=== PATIENT | female | born 1955 ===

== ENCOUNTER 2019-03-02 10:32 | Inpatient (IN) | payer MEDICARE, MEDICAID ==
[2019-03-02 10:34] VITALS: BMI 29.9
--- NOTE | 2019-03-02 10:56 | C.PDOC ---
History Of Present Illness 63 year old female brought by EMS found unresponsive by aid and foaming at the mouth upon arrival. Patient lives with her mother. Patient is only responsive to pain. Patient was intubated with etomidate. EMS reports positive pulse and blood pressure at that time. EMS reports that the patient was given 2 of narcan. Patient's current O2 saturation is at 100% and blood glucose of 260. As per patient's sister, patient's PMHx includes spine problems and operation to the hip and knee. Patient is on multiple pain medications and took a sleeping pill last night, as per patient's sister. Patient's PMD is Dr. Denny Moran. Time Seen by Provider: 03/02/19 10:39 Chief Complaint (Nursing): Altered Mental Status History Per: EMS, Family (sister) History/Exam Limitations: None Onset/Duration Of Symptoms: Hrs Onset Of Symptoms: <3 Hours Current Symptoms Are (Timing): Still Present Usual Baseline: Non-responsive Exacerbating Factor(s): Unknown Past Medical History Reviewed: Historical Data, Nursing Documentation, Vital Signs - Medical History PMH: Anxiety, Back Problems, Depression Surgical History: Back Surgery (2008;2011) Family History: States: Unknown Family Hx - Social History Hx Alcohol Use: No Hx Substance Use: No - Immunization History Hx Tetanus Toxoid Vaccination: No Hx Influenza Vaccination: No Hx Pneumococcal Vaccination: No Review Of Systems Review Of Systems: ROS cannot be obtained secondary to pt's inabilty to answer questions. Physical Exam - Physical Exam Appears: Other (unresponsive, vitals stable) Skin: Normal Color, Warm, Dry Head: Atraumatic, Normacephalic Eye(s): bilateral: Other (pinpoint pupils) Throat: Other (intubated) Neck: Supple Chest: Symmetrical, No Deformity Cardiovascular: Rhythm Regular, No Murmur Respiratory: No Rales, No Rhonchi, No Wheezing, Other (ventilator in place) Gastrointestinal/Abdominal: Soft, No Tenderness, Other (obese, upper right quadrant scar) Extremity: Other (+1 pitting edema bilaterally) Pulses: Left Dorsalis Pedis: Normal, Right Dorsalis Pedis: Normal Neurological/Psych: Other (unresponsive) ED Course And Treatment - Laboratory Results Result Diagrams: 03/02/19 11:33 03/02/19 11:33 Medical Decision Making Medical Decision Making: Impression: 63 year old female brought by EMS found unresponsive by aid and foaming at the mouth upon arrival Plan: Labs ordered with CMP, CBC, and UA CXR ordered Disposition Discussed With Dr.: Quinn Reis - Disposition Disposition: HOSPITALIZED Disposition Time: 12:04 Condition: CRITICAL Forms: [facility] (Macedonian) - Clinical Impression Clinical Impression: Altered mental status, Respiratory failure - Scribe Statement The provider has reviewed the documentation as recorded by the Scribe (Bessie Brambila) All medical record entries made by the Scribe were at my direction and personally dictated by me. I have reviewed the chart and agree that the record accurately reflects my personal performance of the history, physical exam, medical decision making, and the department course for this patient. I have also personally directed, reviewed, and agree with the discharge instructions and disposition. Decision To Admit - Pt Status Changed To: Hospital Disposition Of: Inpatient - Admit Certification Admit to Inpatient:: After my assessment, the patient will require hospitalization for at least two midnights. This is because of the severity of symptoms shown, intensity of services needed, and/or the medical risk in this patient being treated as an outpatient. - InPatient: Physician Admission Certification:: critical patient - . Bed Request Type: ICU Admitting Physician: Quinn Reis Patient Diagnosis: Altered mental status, Respiratory failure
[2019-03-02 11:28] LABS: URINE BILIRUBIN NEGATIVE (NEGATIVE); URINE BLOOD NEGATIVE (NEGATIVE); URINE CLARITY Hazy (Clear); URINE COLOR Yellow (YELLOW); URINE GLUCOSE (UA) NORMAL (Normal); URINE LEUKOCYTE ESTERASE NEG Leu/uL (Negative); URINE PROTEIN NEGATIVE (NEGATIVE); URINE UROBILINOGEN NORMAL mg/dL (0.2-1.0)
[2019-03-02 11:29] LABS: HCG,QUALITATIVE URINE NEGATIVE (NEGATIVE)
[2019-03-02 11:38] LABS: BASO # 0.1 K/uL (0.0-0.2); BASO % 0.8 % (0.0-2.0); HEMOGLOBIN 8.7 g/dL (11.0-16.0); LYMPH # 0.4 K/uL (1.0-4.3); LYMPH % 2.6 % (20.0-40.0); MEAN CELL VOLUME 86.2 fL (81.0-99.0); MEAN CORPUSCULAR HEMOGLOBIN 25.9 pg (27.0-31.0); MEAN PLATELET VOLUME 9.3 fL (7.2-11.7); MONO # 1.6 K/uL (0.0-0.8); MONO % 9.6 % (0.0-10.0); NEUT # 14.4 K/uL (1.8-7.0); NRBC % 0.1 % (0.0-2.0); PLATELET COUNT 317 K/uL (130-400); RBC 3.37 Mil/uL (3.80-5.20); RED CELL DISTRIBUTION WIDTH 15.5 % (11.5-14.5); WHITE BLOOD COUNT 16.6 K/uL (4.8-10.8)
[2019-03-02] MEDS ORDERED: Sodium Chloride 0.9% 1,000 ML ONE (11:43)
[2019-03-02] MEDS ORDERED: Piperacillin/Tazobact 3.375 GM in Sodium Chloride 100 ML IVPB STA (12:02)
[2019-03-02 12:13] LABS: ALB/GLOB RATIO 1.3 (1.0-2.1); ALBUMIN 4.2 g/dL (3.5-5.0); BLOOD UREA NITROGEN 18 mg/dL (7-17); CALCIUM 9.4 mg/dl (8.6-10.4); GFR NON-AFRICAN AMERICAN 50
[2019-03-02 12:14] LABS: ACETAMINOPHEN < 10.0 ug/mL (10.0-30.0); SALICYLATE < 1.0 mg/dL 1
[2019-03-02 12:15] LABS: ALT/SGPT 29 U/L (9-52); AST/SGOT 82 U/L (14-36)
[2019-03-02 12:19] LABS: BARBITURATES, UR NEGATIVE (NEGATIVE); BENZODIAZEPINES, UR NEGATIVE (NEGATIVE); OPIATES, UR NEGATIVE (NEGATIVE); PHENCYCLIDINE, UR NEGATIVE (NEGATIVE)
[2019-03-02] MEDS ORDERED: Iodixanol 320 MG/ML 100 ML BOTTLE IV ONE (12:26)
[2019-03-02 12:36] LABS: VENOUS BLOOD GAS BASE EXCESS -6.2 mmol/L (0.0-2.0); VENOUS BLOOD GAS PCO2 90 mmHg (40-60); VENOUS BLOOD GAS PO2 20 mm/Hg (30-55); VENOUS BLOOD PH 7.07 (7.32-7.43)
[2019-03-02 12:38] LABS: LYMPHOCYTE 1 % (20-40); MONOCYTE 4 % (0-10); NEUTROPHIL 95 % (50-75); NUCLEATED RED BLOOD CELL 1 % (0-0); PLATELET ESTIMATE NORMAL (NORMAL); TOTAL CELLS COUNTED 100
[2019-03-02 12:39] LABS: ANISOCYTOSIS SLIGHT; HYPOCHROMIC SLIGHT; POLYCHROMIC SLIGHT
--- NOTE | 2019-03-02 12:44 | CP.PCM.HP ---
<Chanda Ybarra - Last Filed: 03/02/19 15:19> History of Present Illness - History of Present Illness History of Present Illness: Patient is a 63 year old female with pmhx of chronic back pain 2/2 scoliosis, depression and LE DVT admitted s/p intubation in field after being found by homemaker at home, unresponsive and foaming at the mouth. EMS called; pt initially administered 2 doses of narcan, then intubated for airway protection. Family reports pt has history of chronic back pain following spinal surgery, and per ED notes, hx of severe scoliosis. Patient brought in intubated, hypotensive in the 60s systolic. pmhx: scoliosis, depression, DVT pshx: spinal surgery? meds: eliquis, torsemide, effexor, ambien allergies: NKDA sochx: denies famhx: HTN Present on Admission - Present on Admission Any Indicators Present on Admission: Yes History of DVT/PE: Yes Review of Systems - Review of Systems Systems not reviewed;Unavailable: Intubated Past Patient History - Past Social History Smoking Status: Never Smoked - MUSCULOSKELETAL/RHEUMATOLOGICAL Hx Musculoskeletal Disorders: Yes Hx Back Pain: Yes - PSYCHIATRIC Hx Anxiety: Yes Hx Depression: Yes Hx Substance Use: No - SURGICAL HISTORY Hx Surgeries: Yes Hx Orthopedic Surgery: Yes (knee surgery) Meds Allergies/Adverse Reactions: Allergies Allergy/AdvReac Type Severity Reaction Status Date / Time No Known Allergies Allergy Verified 03/09/17 19:20 Physical Exam - Constitutional Appears: In Acute Distress Additional comments: intubated, verbally unresponsive - Head Exam Head Exam: ATRAUMATIC, NORMAL INSPECTION, NORMOCEPHALIC - Eye Exam Pupil Exam: Miosis. absent: NORMAL ACCOMODATION Additional comments: minimally responsive to light - ENT Exam ENT Exam: Normal Exam - Neck Exam Neck exam: Positive for: Normal Inspection - Respiratory Exam Respiratory Exam: Respiratory Distress Additional comments: intubated on mechanical ventilation - Cardiovascular Exam Cardiovascular Exam: REGULAR RHYTHM - GI/Abdominal Exam GI & Abdominal Exam: Soft. absent: Distended - Extremities Exam Extremities exam: Positive for: normal inspection. Negative for: pedal edema Additional comments: right femoral line - Neurological Exam Neurological exam: Abnormal Gait, Alert, Altered, CN II-XII Intact, Motor Sensory Deficit, Normal Gait, Oriented x3, Reflexes Normal - Expanded Neurological Exam Expanded Coma Scale Eye Opening: None Coma Scale Motor Response: Withdraws to Pain Coma Scale Verbal: None Coma Scale Total: 6 - Skin Skin Exam: Normal Color, Warm Additional comments: cool extremities Results - Vital Signs Recent Vital Signs: Last Vital Signs Temp 98.7 F 03/02/19 10:49 Pulse 90 03/02/19 10:49 Resp 12 03/02/19 10:49 BP 106/71 03/02/19 10:49 Pulse Ox 100 03/02/19 10:49 - Labs Result Diagrams: 03/02/19 11:33 03/02/19 11:33 Labs: Laboratory Results - last 24 hr 03/02/19 03/02/19 03/02/19 11:06 11:06 11:33 WBC 16.6 H RBC 3.37 L Hgb 8.7 L Hct 29.0 L MCV 86.2 MCH 25.9 L MCHC 30.0 L RDW 15.5 H Plt Count 317 MPV 9.3 Neut % (Auto) 87.0 H Lymph % (Auto) 2.6 L [place] % (Auto) 9.6 Eos % (Auto) 0.0 Baso % (Auto) 0.8 Neut # (Auto) 14.4 H Lymph # (Auto) 0.4 L [place] # (Auto) 1.6 H Eos # (Auto) 0.0 Baso # (Auto) 0.1 Neutrophils % (Manual) 95 H Lymphocytes % (Manual) 1 L Monocytes % (Manual) 4 Nucleated RBC % 1 H Platelet Estimate Normal Polychromasia Slight Hypochromasia (manual) Slight Anisocytosis (manual) Slight pO2 VBG pH VBG pCO2 VBG HCO3 VBG Total CO2 VBG O2 Sat (Calc) VBG Base Excess VBG Potassium Glucose Lactate Crit Value Called To Crit Value Called By Crit Value Read Back Blood Gas Notified Time Sodium Potassium Chloride Carbon Dioxide Anion Gap BUN Creatinine Est GFR ( Amer) Est GFR (Non-Af Amer) Random Glucose Calcium Phosphorus Magnesium Total Bilirubin AST ALT Alkaline Phosphatase Total Protein Albumin Globulin Albumin/Globulin Ratio Venous Blood Potassium Urine Color Yellow Urine Clarity Hazy Urine pH 5.0 Ur Specific [place] 1.011 Urine Protein Negative Urine Glucose (UA) Normal Urine Ketones Negative Urine Blood Negative Urine Nitrate Negative Urine Bilirubin Negative Urine Urobilinogen Normal Ur Leukocyte Esterase Neg Urine WBC (Auto) 1 Urine RBC (Auto) < 1 Hyaline Casts 6-10 H Urine HCG, Qual Negative Salicylates Urine Opiates Screen Negative Urine Methadone Screen Negative Acetaminophen Ur Barbiturates Screen Negative Ur Phencyclidine Scrn Negative Ur Amphetamines Screen Negative U Benzodiazepines Scrn Negative U Oth Cocaine Metabols Negative U Cannabinoids Screen Negative Alcohol, Quantitative 03/02/19 03/02/19 03/02/19 11:33 11:33 12:32 WBC RBC Hgb Hct MCV MCH MCHC RDW Plt Count MPV Neut % (Auto) Lymph % (Auto) [place] % (Auto) Eos % (Auto) Baso % (Auto) Neut # (Auto) Lymph # (Auto) [place] # (Auto) Eos # (Auto) Baso # (Auto) Neutrophils % (Manual) Lymphocytes % (Manual) Monocytes % (Manual) Nucleated RBC % Platelet Estimate Polychromasia Hypochromasia (manual) Anisocytosis (manual) pO2 20 L VBG pH 7.07 L* VBG pCO2 90 H* VBG HCO3 17.9 VBG Total CO2 28.9 H VBG O2 Sat (Calc) 22.8 L VBG Base Excess -6.2 L VBG Potassium 5.8 H Glucose 94 Lactate 4.1 H* Crit Value Called To Dr florian Crit Value Called By Alejandra fraser boot turner Crit Value Read Back Y Blood Gas Notified Time 1236 Sodium 139 136.0 Potassium 5.9 H Chloride 102 101.0 Carbon Dioxide 23 Anion Gap 20 BUN 18 H Creatinine 1.1 Est GFR ( Amer) > 60 Est GFR (Non-Af Amer) 50 Random Glucose 97 Calcium 9.4 Phosphorus 8.8 H Magnesium 1.8 Total Bilirubin 0.3 AST 82 H ALT 29 Alkaline Phosphatase 44 Total Protein 7.4 Albumin 4.2 Globulin 3.2 Albumin/Globulin Ratio 1.3 Venous Blood Potassium 5.8 H Urine Color Urine Clarity Urine pH Ur Specific [place] Urine Protein Urine Glucose (UA) Urine Ketones Urine Blood Urine Nitrate Urine Bilirubin Urine Urobilinogen Ur Leukocyte Esterase Urine WBC (Auto) Urine RBC (Auto) Hyaline Casts Urine HCG, Qual Salicylates < 1.0 Urine Opiates Screen Urine Methadone Screen Acetaminophen < 10.0 L Ur Barbiturates Screen Ur Phencyclidine Scrn Ur Amphetamines Screen U Benzodiazepines Scrn U Oth Cocaine Metabols U Cannabinoids Screen Alcohol, Quantitative < 10 Assessment & Plan - Assessment and Plan (Free Text) Assessment: 63 year old female with pmhx of chronic back pain 2/2 scoliosis, depression, DVT admitted status post intubation in field after being found unresponsive Plan: AMS GCS: 6T, withdraws to painful stimulus Propofol drip titration UDS negative f/u Head CT; pt on Eliquis for DVT Sepsis 2/2 suspected PNA CXR: RUL infiltrate lactate 4.1 leukocytosis 16.6 IV Abx, Vanco/Doxy Code sepsis called f/u gibson cxs Acute Hypercapneic Respiratory Failure Sedated/Intubated on mech vent Duonebs Hypotension Hypotensive on arrival Right femoral TLC NS @100 Levophed titration as tolerated Discussed with Dr. Wilkes -Chanda Ybarra, PGY-1 <Rian Wilkes - Last Filed: 03/02/19 15:52> Results - Vital Signs Recent Vital Signs: Last Vital Signs Temp 98.7 F 03/02/19 10:49 Pulse 78 03/02/19 15:00 Resp 19 03/02/19 15:00 BP 117/76 03/02/19 14:48 Pulse Ox 100 03/02/19 14:50 - Labs Result Diagrams: 03/02/19 11:33 03/02/19 11:33 Labs: Laboratory Results - last 24 hr 03/02/19 03/02/19 03/02/19 11:06 11:06 11:33 WBC 16.6 H RBC 3.37 L Hgb 8.7 L Hct 29.0 L MCV 86.2 MCH 25.9 L MCHC 30.0 L RDW 15.5 H Plt Count 317 MPV 9.3 Neut % (Auto) 87.0 H Lymph % (Auto) 2.6 L [place] % (Auto) 9.6 Eos % (Auto) 0.0 Baso % (Auto) 0.8 Neut # (Auto) 14.4 H Lymph # (Auto) 0.4 L [place] # (Auto) 1.6 H Eos # (Auto) 0.0 Baso # (Auto) 0.1 Neutrophils % (Manual) 95 H Lymphocytes % (Manual) 1 L Monocytes % (Manual) 4 Nucleated RBC % 1 H Platelet Estimate Normal Polychromasia Slight Hypochromasia (manual) Slight Anisocytosis (manual) Slight APTT Puncture Site pCO2 pO2 HCO3 ABG pH ABG Total CO2 ABG O2 Saturation ABG Base Excess Keo Test ABG Potassium VBG pH VBG pCO2 VBG HCO3 VBG Total CO2 VBG O2 Sat (Calc) VBG Base Excess VBG Potassium A-a O2 Difference Respiratory Index Glucose Lactate Vent Mode FiO2 Tidal Volume PEEP Crit Value Called To Crit Value Called By Crit Value Read Back Blood Gas Notified Time Sodium Potassium Chloride Carbon Dioxide Anion Gap BUN Creatinine Est GFR ( Amer) Est GFR (Non-Af Amer) Random Glucose Lactic Acid Calcium Phosphorus Magnesium Total Bilirubin AST ALT Alkaline Phosphatase CK-MB (Mass) Total Protein Albumin Globulin Albumin/Globulin Ratio Arterial Blood Potassium Venous Blood Potassium Urine Color Yellow Urine Clarity Hazy Urine pH 5.0 Ur Specific [place] 1.011 Urine Protein Negative Urine Glucose (UA) Normal Urine Ketones Negative Urine Blood Negative Urine Nitrate Negative Urine Bilirubin Negative Urine Urobilinogen Normal Ur Leukocyte Esterase Neg Urine WBC (Auto) 1 Urine RBC (Auto) < 1 Hyaline Casts 6-10 H Urine HCG, Qual Negative Salicylates Urine Opiates Screen Negative Urine Methadone Screen Negative Acetaminophen Ur Barbiturates Screen Negative Ur Phencyclidine Scrn Negative Ur Amphetamines Screen Negative U Benzodiazepines Scrn Negative U Oth Cocaine Metabols Negative U Cannabinoids Screen Negative Alcohol, Quantitative 03/02/19 03/02/19 03/02/19 11:33 11:33 12:32 WBC RBC Hgb Hct MCV MCH MCHC RDW Plt Count MPV Neut % (Auto) Lymph % (Auto) [place] % (Auto) Eos % (Auto) Baso % (Auto) Neut # (Auto) Lymph # (Auto) [place] # (Auto) Eos # (Auto) Baso # (Auto) Neutrophils % (Manual) Lymphocytes % (Manual) Monocytes % (Manual) Nucleated RBC % Platelet Estimate Polychromasia Hypochromasia (manual) Anisocytosis (manual) APTT Puncture Site pCO2 pO2 20 L HCO3 ABG pH ABG Total CO2 ABG O2 Saturation ABG Base Excess Keo Test ABG Potassium VBG pH 7.07 L* VBG pCO2 90 H* VBG HCO3 17.9 VBG Total CO2 28.9 H VBG O2 Sat (Calc) 22.8 L VBG Base Excess -6.2 L VBG Potassium 5.8 H A-a O2 Difference Respiratory Index Glucose 94 Lactate 4.1 H* Vent Mode FiO2 Tidal Volume PEEP Crit Value Called To Dr florian Crit Value Called By Alejandra fraser boot turner Crit Value Read Back Y Blood Gas Notified Time 1236 Sodium 139 136.0 Potassium 5.9 H Chloride 102 101.0 Carbon Dioxide 23 Anion Gap 20 BUN 18 H Creatinine 1.1 Est GFR ( Amer) > 60 Est GFR (Non-Af Amer) 50 Random Glucose 97 Lactic Acid Calcium 9.4 Phosphorus 8.8 H Magnesium 1.8 Total Bilirubin 0.3 AST 82 H ALT 29 Alkaline Phosphatase 44 CK-MB (Mass) Total Protein 7.4 Albumin 4.2 Globulin 3.2 Albumin/Globulin Ratio 1.3 Arterial Blood Potassium Venous Blood Potassium 5.8 H Urine Color Urine Clarity Urine pH Ur Specific [place] Urine Protein Urine Glucose (UA) Urine Ketones Urine Blood Urine Nitrate Urine Bilirubin Urine Urobilinogen Ur Leukocyte Esterase Urine WBC (Auto) Urine RBC (Auto) Hyaline Casts Urine HCG, Qual Salicylates < 1.0 Urine Opiates Screen Urine Methadone Screen Acetaminophen < 10.0 L Ur Barbiturates Screen Ur Phencyclidine Scrn Ur Amphetamines Screen U Benzodiazepines Scrn U Oth Cocaine Metabols U Cannabinoids Screen Alcohol, Quantitative < 10 03/02/19 03/02/19 03/02/19 12:33 12:33 13:16 WBC RBC Hgb Hct MCV MCH MCHC RDW Plt Count MPV Neut % (Auto) Lymph % (Auto) [place] % (Auto) Eos % (Auto) Baso % (Auto) Neut # (Auto) Lymph # (Auto) [place] # (Auto) Eos # (Auto) Baso # (Auto) Neutrophils % (Manual) Lymphocytes % (Manual) Monocytes % (Manual) Nucleated RBC % Platelet Estimate Polychromasia Hypochromasia (manual) Anisocytosis (manual) APTT 27 Puncture Site pCO2 pO2 HCO3 ABG pH ABG Total CO2 ABG O2 Saturation ABG Base Excess Keo Test ABG Potassium VBG pH VBG pCO2 VBG HCO3 VBG Total CO2 VBG O2 Sat (Calc) VBG Base Excess VBG Potassium A-a O2 Difference Respiratory Index Glucose Lactate Vent Mode FiO2 Tidal Volume PEEP Crit Value Called To Crit Value Called By Crit Value Read Back Blood Gas Notified Time Sodium Potassium Chloride Carbon Dioxide Anion Gap BUN Creatinine Est GFR ( Amer) Est GFR (Non-Af Amer) Random Glucose Lactic Acid 3.1 H Calcium Phosphorus Magnesium 1.6 Total Bilirubin AST ALT Alkaline Phosphatase CK-MB (Mass) 5.51 H Total Protein Albumin Globulin Albumin/Globulin Ratio Arterial Blood Potassium Venous Blood Potassium Urine Color Urine Clarity Urine pH Ur Specific [place] Urine Protein Urine Glucose (UA) Urine Ketones Urine Blood Urine Nitrate Urine Bilirubin Urine Urobilinogen Ur Leukocyte Esterase Urine WBC (Auto) Urine RBC (Auto) Hyaline Casts Urine HCG, Qual Salicylates Urine Opiates Screen Urine Methadone Screen Acetaminophen Ur Barbiturates Screen Ur Phencyclidine Scrn Ur Amphetamines Screen U Benzodiazepines Scrn U Oth Cocaine Metabols U Cannabinoids Screen Alcohol, Quantitative 03/02/19 13:43 WBC RBC Hgb Hct MCV MCH MCHC RDW Plt Count MPV Neut % (Auto) Lymph % (Auto) [place] % (Auto) Eos % (Auto) Baso % (Auto) Neut # (Auto) Lymph # (Auto) [place] # (Auto) Eos # (Auto) Baso # (Auto) Neutrophils % (Manual) Lymphocytes % (Manual) Monocytes % (Manual) Nucleated RBC % Platelet Estimate Polychromasia Hypochromasia (manual) Anisocytosis (manual) APTT Puncture Site Rba pCO2 32 L pO2 405 H HCO3 19.2 L ABG pH 7.34 L ABG Total CO2 18.3 L ABG O2 Saturation 98.6 H ABG Base Excess -7.4 L Keo Test Na ABG Potassium 5.1 VBG pH VBG pCO2 VBG HCO3 VBG Total CO2 VBG O2 Sat (Calc) VBG Base Excess VBG Potassium A-a O2 Difference 268.0 Respiratory Index 0.7 Glucose 132 H Lactate 4.1 H* Vent Mode Prvc FiO2 100.0 Tidal Volume 500 PEEP 5 Crit Value Called To Diony jenkins Crit Value Called By Blaze cagle,boot turner Crit Value Read Back Y Blood Gas Notified Time 1350 Sodium 136.0 Potassium Chloride 108.0 H Carbon Dioxide Anion Gap BUN Creatinine Est GFR ( Amer) Est GFR (Non-Af Amer) Random Glucose Lactic Acid Calcium Phosphorus Magnesium Total Bilirubin AST ALT Alkaline Phosphatase CK-MB (Mass) Total Protein Albumin Globulin Albumin/Globulin Ratio Arterial Blood Potassium 5.1 Venous Blood Potassium Urine Color Urine Clarity Urine pH Ur Specific [place] Urine Protein Urine Glucose (UA) Urine Ketones Urine Blood Urine Nitrate Urine Bilirubin Urine Urobilinogen Ur Leukocyte Esterase Urine WBC (Auto) Urine RBC (Auto) Hyaline Casts Urine HCG, Qual Salicylates Urine Opiates Screen Urine Methadone Screen Acetaminophen Ur Barbiturates Screen Ur Phencyclidine Scrn Ur Amphetamines Screen U Benzodiazepines Scrn U Oth Cocaine Metabols U Cannabinoids Screen Alcohol, Quantitative Attending/Attestation - Attestation I have personally seen and examined this patient.: Yes I have fully participated in the care of the patient.: Yes I have reviewed all pertinent clinical information: Yes Notes (Text): 03/02/19 15:39 Medical attending: Patient was seen and examined by me with the district medical examiner. Reviewed the above note by the resident and agree with the above The patient was intubated in the field by EMS. Per discussion with staff when she was brought in she was more awake, however by the time I came and saw her she was sedated with propofol. The blood pressure was improved as well, her systolic BP increased with low dose levophed. The CXRAY may show effusion/pneumonia and she has been administer IV abx. There is an elevated WBC Pending cultures at this time Family member, her sister was present. According to her the last time the patient was known to be at her baseline was about 7:30 last night and then was found this morning when the free lance model came in Pending a CTA of the head and neck at this time. Patient has history of DVT and on Ramila Wilkes
--- NOTE | 2019-03-02 12:51 | CP.PCM.CON ---
<Chanda Ybarra - Last Filed: 03/02/19 15:30> History of Present Illness - History of Present Illness History of Present Illness: Patient is a 63 year old female with pmhx of chronic back pain 2/2 scoliosis, depression and LE DVT admitted s/p intubation in field after being found by homemaker at home, unresponsive and foaming at the mouth. EMS called; pt initially administered 2 doses of narcan, then intubated for airway protection. Family reports pt has history of chronic back pain following spinal surgery, and per ED notes, hx of severe scoliosis. Patient brought in intubated, hypotensive in the 60s systolic. pmhx: scoliosis, depression, DVT pshx: spinal surgery? meds: eliquis, torsemide, effexor, ambien allergies: NKDA sochx: denies famhx: HTN Review of Systems - Review of Systems Systems not reviewed;Unavailable: Intubated Past Patient History - Past Social History Smoking Status: Never Smoked - MUSCULOSKELETAL/RHEUMATOLOGICAL Hx Musculoskeletal Disorders: Yes Hx Back Pain: Yes - PSYCHIATRIC Hx Anxiety: Yes Hx Depression: Yes Hx Substance Use: No - SURGICAL HISTORY Hx Surgeries: Yes Hx Orthopedic Surgery: Yes (knee surgery) Meds Allergies/Adverse Reactions: Allergies Allergy/AdvReac Type Severity Reaction Status Date / Time No Known Allergies Allergy Verified 03/09/17 19:20 - Medications Medications: Current Medications Norepinephrine Bitartrate 4 mg (/ Dextrose) 254 mls @ 15.24 mls/hr IV .[id number] PRN; Protocol PRN Reason: TITRATE PER MD ORDER Norepinephrine Bitartrate 4 mg (/ Dextrose) 254 mls @ 19.05 mls/hr IV .[id number] PRN; Protocol PRN Reason: TITRATE PER MD ORDER Vancomycin HCl 1 gm/ Sodium (Chloride) 250 mls @ 166.7 mls/hr IVPB Q24H FRANCINE; Protocol Physical Exam - Constitutional Appears: Other Additional comments: intubated/sedated - Head Exam Head Exam: ATRAUMATIC, NORMAL INSPECTION, NORMOCEPHALIC - Eye Exam Pupil Exam: Miosis Additional comments: minimally responsive - ENT Exam Additional comments: intubated - Neck Exam Neck exam: Positive for: Normal Inspection - Respiratory Exam Respiratory Exam: Respiratory Distress Additional comments: mechanical ventilation - Cardiovascular Exam Cardiovascular Exam: REGULAR RHYTHM, +S1, +S2. absent: Tachycardia - GI/Abdominal Exam GI & Abdominal Exam: Normal Bowel Sounds, Soft. absent: Distended - Extremities Exam Extremities exam: Positive for: normal inspection. Negative for: pedal edema Additional comments: cool extremities right femoral TLC - Neurological Exam Neurological exam: Altered - Skin Skin Exam: Dry, Warm Results - Vital Signs Recent Vital Signs: Last Vital Signs Temp 98.7 F 03/02/19 10:49 Pulse 90 03/02/19 10:49 Resp 12 03/02/19 10:49 BP 106/71 03/02/19 10:49 Pulse Ox 100 03/02/19 10:49 - Labs Result Diagrams: 03/02/19 11:33 03/02/19 11:33 Labs: Laboratory Results - last 24 hr 03/02/19 03/02/19 03/02/19 11:06 11:06 11:33 WBC 16.6 H RBC 3.37 L Hgb 8.7 L Hct 29.0 L MCV 86.2 MCH 25.9 L MCHC 30.0 L RDW 15.5 H Plt Count 317 MPV 9.3 Neut % (Auto) 87.0 H Lymph % (Auto) 2.6 L [place] % (Auto) 9.6 Eos % (Auto) 0.0 Baso % (Auto) 0.8 Neut # (Auto) 14.4 H Lymph # (Auto) 0.4 L [place] # (Auto) 1.6 H Eos # (Auto) 0.0 Baso # (Auto) 0.1 Neutrophils % (Manual) 95 H Lymphocytes % (Manual) 1 L Monocytes % (Manual) 4 Nucleated RBC % 1 H Platelet Estimate Normal Polychromasia Slight Hypochromasia (manual) Slight Anisocytosis (manual) Slight APTT pO2 VBG pH VBG pCO2 VBG HCO3 VBG Total CO2 VBG O2 Sat (Calc) VBG Base Excess VBG Potassium Glucose Lactate Crit Value Called To Crit Value Called By Crit Value Read Back Blood Gas Notified Time Sodium Potassium Chloride Carbon Dioxide Anion Gap BUN Creatinine Est GFR ( Amer) Est GFR (Non-Af Amer) Random Glucose Calcium Phosphorus Magnesium Total Bilirubin AST ALT Alkaline Phosphatase Total Protein Albumin Globulin Albumin/Globulin Ratio Venous Blood Potassium Urine Color Yellow Urine Clarity Hazy Urine pH 5.0 Ur Specific [place] 1.011 Urine Protein Negative Urine Glucose (UA) Normal Urine Ketones Negative Urine Blood Negative Urine Nitrate Negative Urine Bilirubin Negative Urine Urobilinogen Normal Ur Leukocyte Esterase Neg Urine WBC (Auto) 1 Urine RBC (Auto) < 1 Hyaline Casts 6-10 H Urine HCG, Qual Negative Salicylates Urine Opiates Screen Negative Urine Methadone Screen Negative Acetaminophen Ur Barbiturates Screen Negative Ur Phencyclidine Scrn Negative Ur Amphetamines Screen Negative U Benzodiazepines Scrn Negative U Oth Cocaine Metabols Negative U Cannabinoids Screen Negative Alcohol, Quantitative 03/02/19 03/02/19 03/02/19 11:33 11:33 12:32 WBC RBC Hgb Hct MCV MCH MCHC RDW Plt Count MPV Neut % (Auto) Lymph % (Auto) [place] % (Auto) Eos % (Auto) Baso % (Auto) Neut # (Auto) Lymph # (Auto) [place] # (Auto) Eos # (Auto) Baso # (Auto) Neutrophils % (Manual) Lymphocytes % (Manual) Monocytes % (Manual) Nucleated RBC % Platelet Estimate Polychromasia Hypochromasia (manual) Anisocytosis (manual) APTT pO2 20 L VBG pH 7.07 L* VBG pCO2 90 H* VBG HCO3 17.9 VBG Total CO2 28.9 H VBG O2 Sat (Calc) 22.8 L VBG Base Excess -6.2 L VBG Potassium 5.8 H Glucose 94 Lactate 4.1 H* Crit Value Called To Dr florian Crit Value Called By Alejandra fraser acquisition specialist Crit Value Read Back Y Blood Gas Notified Time 1236 Sodium 139 136.0 Potassium 5.9 H Chloride 102 101.0 Carbon Dioxide 23 Anion Gap 20 BUN 18 H Creatinine 1.1 Est GFR ( Amer) > 60 Est GFR (Non-Af Amer) 50 Random Glucose 97 Calcium 9.4 Phosphorus 8.8 H Magnesium 1.8 Total Bilirubin 0.3 AST 82 H ALT 29 Alkaline Phosphatase 44 Total Protein 7.4 Albumin 4.2 Globulin 3.2 Albumin/Globulin Ratio 1.3 Venous Blood Potassium 5.8 H Urine Color Urine Clarity Urine pH Ur Specific [place] Urine Protein Urine Glucose (UA) Urine Ketones Urine Blood Urine Nitrate Urine Bilirubin Urine Urobilinogen Ur Leukocyte Esterase Urine WBC (Auto) Urine RBC (Auto) Hyaline Casts Urine HCG, Qual Salicylates < 1.0 Urine Opiates Screen Urine Methadone Screen Acetaminophen < 10.0 L Ur Barbiturates Screen Ur Phencyclidine Scrn Ur Amphetamines Screen U Benzodiazepines Scrn U Oth Cocaine Metabols U Cannabinoids Screen Alcohol, Quantitative < 10 03/02/19 03/02/19 12:33 12:33 WBC RBC Hgb Hct MCV MCH MCHC RDW Plt Count MPV Neut % (Auto) Lymph % (Auto) [place] % (Auto) Eos % (Auto) Baso % (Auto) Neut # (Auto) Lymph # (Auto) [place] # (Auto) Eos # (Auto) Baso # (Auto) Neutrophils % (Manual) Lymphocytes % (Manual) Monocytes % (Manual) Nucleated RBC % Platelet Estimate Polychromasia Hypochromasia (manual) Anisocytosis (manual) APTT 27 pO2 VBG pH VBG pCO2 VBG HCO3 VBG Total CO2 VBG O2 Sat (Calc) VBG Base Excess VBG Potassium Glucose Lactate Crit Value Called To Crit Value Called By Crit Value Read Back Blood Gas Notified Time Sodium Potassium Chloride Carbon Dioxide Anion Gap BUN Creatinine Est GFR ( Amer) Est GFR (Non-Af Amer) Random Glucose Calcium Phosphorus Magnesium 1.6 Total Bilirubin AST ALT Alkaline Phosphatase Total Protein Albumin Globulin Albumin/Globulin Ratio Venous Blood Potassium Urine Color Urine Clarity Urine pH Ur Specific [place] Urine Protein Urine Glucose (UA) Urine Ketones Urine Blood Urine Nitrate Urine Bilirubin Urine Urobilinogen Ur Leukocyte Esterase Urine WBC (Auto) Urine RBC (Auto) Hyaline Casts Urine HCG, Qual Salicylates Urine Opiates Screen Urine Methadone Screen Acetaminophen Ur Barbiturates Screen Ur Phencyclidine Scrn Ur Amphetamines Screen U Benzodiazepines Scrn U Oth Cocaine Metabols U Cannabinoids Screen Alcohol, Quantitative Assessment & Plan - Assessment and Plan (Free Text) Assessment: 63 year old female with pmhx of chronic back pain 2/2 scoliosis, depression, DVT admitted status post intubation in field after being found unresponsive Plan: Neuro AMS GCS: 6T Propofol drip titration UDS negative f/u Head CT; pt on Eliquis for DVT Pulm Acute Hypercapneic Respiratory Failure Sedated/Intubated on [facility] vent Duonebs CV Sepsis 2/2 suspected PNA CXR: RUL infiltrate lactate 4.1 leukocytosis 16.6 IV Abx, Vanco/Doxy Code sepsis called f/u [facility]son cxs Hypotension Hypotensive on arrival Right femoral TLC NS @100 Levophed titration as tolerated GI NPO Discussed w/ Dr. Chato JeanChanda Ybarra, PGY-1 <Tirso Reis M - Last Filed: 03/03/19 16:43> Meds - Medications Medications: Current Medications Albuterol/Ipratropium (Duoneb 3 Mg/0.5 Mg (3 Ml) Ud) 3 ml INH RQ6 FRANCINE Last Admin: 03/03/19 14:04 Dose: 3 ml Apixaban (Eliquis) 5 mg PO BID FRANCINE Hydrocortisone Sodium Succinate (Solu-Cortef) 100 mg IV Q8 FRANCINE Last Admin: 03/03/19 16:00 Dose: 100 mg Norepinephrine Bitartrate 4 mg (/ Dextrose) 254 mls @ 15.24 mls/hr IV .[id number] PRN; Protocol PRN Reason: TITRATE PER MD ORDER Last Titration: 03/02/19 20:00 Dose: 0 mcg/min, 0 mls/hr Vancomycin HCl 1 gm/ Sodium (Chloride) 250 mls @ 166.7 mls/hr IVPB Q24H FRANCINE; Protocol Last Admin: 03/03/19 12:59 Dose: 166.7 mls/hr Propofol (Diprivan) 1,000 mg in 100 mls @ 2.449 mls/hr IV .Q24H PRN; Protocol PRN Reason: TITRATE PER MD ORDER Last Titration: 03/03/19 12:30 Dose: 18 mcg/kg/min, 8.818 mls/hr Piperacillin Sod/Tazobactam (Sod 3.375 gm/ Sodium Chloride) 100 mls @ 200 mls/hr IVPB Q6H FRANCINE; Protocol Last Admin: 03/03/19 10:54 Dose: 200 mls/hr Doxycycline Hyclate 100 mg/ (Sodium Chloride) 100 mls @ 100 mls/hr IVPB Q12H FRANCINE; Protocol Last Admin: 03/03/19 16:13 Dose: 100 mls/hr Pantoprazole Sodium (Protonix Inj) 40 mg IVP DAILY FRANCINE Last Admin: 03/03/19 09:56 Dose: 40 mg Results - Vital Signs Recent Vital Signs: Last Vital Signs Temp 99.2 F 03/03/19 16:00 Pulse 77 03/03/19 16:00 Resp 16 03/03/19 16:00 BP 121/73 04/05/19 16:00 Pulse Ox 100 03/03/19 16:00 - Labs Result Diagrams: 03/03/19 05:25 03/03/19 05:25 Labs: Laboratory Results - last 24 hr 03/02/19 03/02/19 03/02/19 17:58 19:50 19:50 WBC RBC Hgb Hct MCV MCH MCHC RDW Plt Count MPV Neut % (Auto) Lymph % (Auto) [place] % (Auto) Eos % (Auto) Baso % (Auto) Neut # (Auto) Lymph # (Auto) [place] # (Auto) Eos # (Auto) Baso # (Auto) Neutrophils % (Manual) Lymphocytes % (Manual) Monocytes % (Manual) Platelet Estimate Large Platelets Polychromasia Hypochromasia (manual) Poikilocytosis (manual Anisocytosis (manual) Target Cells Puncture Site pCO2 pO2 HCO3 ABG pH ABG Total CO2 ABG O2 Saturation ABG Base Excess Keo Test ABG Potassium A-a O2 Difference Respiratory Index Glucose Lactate Vent Mode Mechanical Rate FiO2 Tidal Volume PEEP Sodium Potassium Chloride Carbon Dioxide Anion Gap BUN Creatinine Est GFR ( Amer) Est GFR (Non-Af Amer) Random Glucose Lactic Acid 2.1 Calcium Phosphorus Magnesium Total Bilirubin AST ALT Alkaline Phosphatase Total Creatine Kinase 146 H Troponin I 0.3220 H* Total Protein Albumin Globulin Albumin/Globulin Ratio Arterial Blood Potassium 03/03/19 03/03/19 03/03/19 00:47 05:25 05:25 WBC 9.9 RBC 2.96 L Hgb 7.9 L Hct 24.1 L MCV 81.5 D MCH 26.7 L MCHC 32.8 L RDW 15.2 H Plt Count 286 MPV 9.2 Neut % (Auto) 88.6 H Lymph % (Auto) 7.7 L [place] % (Auto) 3.6 Eos % (Auto) 0.0 Baso % (Auto) 0.1 Neut # (Auto) 8.8 H Lymph # (Auto) 0.8 L [place] # (Auto) 0.4 Eos # (Auto) 0.0 Baso # (Auto) 0.0 Neutrophils % (Manual) 91 H Lymphocytes % (Manual) 6 L Monocytes % (Manual) 3 Platelet Estimate Normal Large Platelets Present Polychromasia Slight Hypochromasia (manual) Slight Poikilocytosis (manual Slight Anisocytosis (manual) Slight Target Cells Slight Puncture Site pCO2 pO2 HCO3 ABG pH ABG Total CO2 ABG O2 Saturation ABG Base Excess Keo Test ABG Potassium A-a O2 Difference Respiratory Index Glucose Lactate Vent Mode Mechanical Rate FiO2 Tidal Volume PEEP Sodium 137 Potassium 3.4 L Chloride 107 Carbon Dioxide 23 Anion Gap 10 BUN 14 Creatinine 0.8 Est GFR ( Amer) > 60 Est GFR (Non-Af Amer) > 60 Random Glucose 137 H D Lactic Acid Calcium 8.2 L Phosphorus 2.8 Magnesium 1.6 Total Bilirubin 0.5 AST 108 H D ALT 75 H D Alkaline Phosphatase 62 Total Creatine Kinase Troponin I 0.2370 H* Total Protein 5.4 L Albumin 3.0 L D Globulin 2.5 Albumin/Globulin Ratio 1.2 Arterial Blood Potassium 03/03/19 03/03/19 05:29 09:10 WBC RBC Hgb Hct MCV MCH MCHC RDW Plt Count MPV Neut % (Auto) Lymph % (Auto) [place] % (Auto) Eos % (Auto) Baso % (Auto) Neut # (Auto) Lymph # (Auto) [place] # (Auto) Eos # (Auto) Baso # (Auto) Neutrophils % (Manual) Lymphocytes % (Manual) Monocytes % (Manual) Platelet Estimate Large Platelets Polychromasia Hypochromasia (manual) Poikilocytosis (manual Anisocytosis (manual) Target Cells Puncture Site Rr pCO2 23 L pO2 131 H HCO3 25.1 ABG pH 7.56 H ABG Total CO2 21.3 L ABG O2 Saturation 98.8 H ABG Base Excess 0.1 Keo Test Pos ABG Potassium 3.3 L A-a O2 Difference 125.0 Respiratory Index 1.0 Glucose 133 H Lactate 1.6 Vent Mode Prvc Mechanical Rate 20 FiO2 40.0 Tidal Volume 500 PEEP 5 Sodium 140.0 Potassium Chloride 109.0 H Carbon Dioxide Anion Gap BUN Creatinine Est GFR ( Amer) Est GFR (Non-Af Amer) Random Glucose Lactic Acid Calcium Phosphorus Magnesium Total Bilirubin AST ALT Alkaline Phosphatase Total Creatine Kinase Troponin I 0.1120 Total Protein Albumin Globulin Albumin/Globulin Ratio Arterial Blood Potassium 3.3 L Assessment & Plan - Assessment and Plan (Free Text) Plan: -Hypercapneic respiratory failure -AMS -polysubstance abuse -aspriation PNA -continue ng tube feeds -Septic shock: continue norepi and steroids -emergent central line place in ER -Above resident note reviewed. cc time 47 minutes - Date & Time Date: 03/02/19 Time: 21:00
--- NOTE | 2019-03-02 12:55 | PCM.PROC ---
Procedures Attestation:: I certify that I have explained the specified Operation(s) or Procedure(s), risks, benefits and reasonable alternatives to the Patient and/or other person responsible. The opportunity was given to ask questions and all questions answered - Central Line Placement Right Femoral Triple Lumen Catheter Aseptic technique was employed throughout the procedure: Hand Hygiene done prior to procedure, Full sterile barriers (mask, hair cover, sterile gown, sterile gloves), Full body sterile drape, Chloraprep Antiseptic: 2 minute prep for Femoral CVP Time Out Performed: Yes Pt. Placed on Pulse Ox Monitor: Yes Central Line Prep: Chlorhexidine-Alcohol Combination Local Anesthesia Used: Lidocaine 1% Ultrasound Used for Placement: No Central Line Lumen Inserted: triple Central Line Length: 30 cm Post Procedure: Sutured in Place, Good Blood Return, All Ports Aspirated, Fl ushed, Capped, Sterile Dressing Applied Secured by: Suture Post procedure dressing: Clear vapor permeable, Chlorhexidine disc (Biopatch) Post Procedure X-Ray: Yes Patient Tolerated Procedure: Well, No Complications Immediate Complications: None
[2019-03-02 12:58] LABS: CK-MB 5.51 ng/mL (0.0-3.38)
[2019-03-02] MEDS ORDERED: Propofol 10 mg/ml Inj (100 ml) IV SCH (13:00)
--- NOTE | 2019-03-02 13:12 | RAD ---
HISTORY: Detox/Psy COMPARISON: None available TECHNIQUE: Chest, one view. FINDINGS: Endotracheal tube terminates approximately 2.4 cm above the rodrigo. LUNGS: Hypoinflation. Right hilar prominence. Interstitial prominence may reflect infection or edema. Left basilar atelectasis/infiltrate. PLEURA: Small [id number]-right pleural effusions. No definite pneumothorax . CARDIOVASCULAR: Cardiomegaly. Atherosclerotic calcifications. OSSEOUS STRUCTURES: Degenerative changes. VISUALIZED UPPER ABDOMEN: Unremarkable. OTHER FINDINGS: None. IMPRESSION: Endotracheal tube tip terminates approximately 2.4 cm above the rodrigo. Cardiomegaly. Right hilar prominence. Hypoinflation. Interstitial prominence may reflect infection or edema. Left basilar atelectasis/infiltrate.
[2019-03-02] MEDS: Propofol 10 mg/ml 1,000 MG/100 ML VIAL IV PRN (13:20)
[2019-03-02 13:47] LABS: ARTERIAL BLOOD GAS HCO3 19.2 mmol/L (21-28); ARTERIAL BLOOD GAS O2 SAT 98.6 % (95-98); ARTERIAL BLOOD GAS PCO2 32 mm/Hg (35-45); ARTERIAL BLOOD GAS PH 7.34 (7.35-7.45); ARTERIAL BLOOD GAS PO2 405 mm/Hg (80-100); ARTERIAL BLOOD GAS TCO2 18.3 mmol/L (22-28)
--- NOTE | 2019-03-02 13:47 | RAD ---
HISTORY: s/p central line COMPARISON: Chest x-ray performed 03/02/19 at 1125 hr TECHNIQUE: Chest, one view. FINDINGS: Endotracheal tube terminates approximately 1.8 cm above the rodrigo. LUNGS: Medial right upper lobe infiltrate. PLEURA: No significant pleural effusion identified. No definite pneumothorax . CARDIOVASCULAR: Cardiomegaly. Atherosclerotic calcifications of the aorta. OSSEOUS STRUCTURES: Degenerative changes. VISUALIZED UPPER ABDOMEN: Unremarkable. OTHER FINDINGS: None. IMPRESSION: Endotracheal tube terminates approximately 1.8 cm above the rodrigo. Medial right upper lobe infiltrate. Cardiomegaly.
[2019-03-02] MEDS ORDERED: Dextrose 5%/0.9% NS 1,000 ML IV SCH (14:15)
--- NOTE | 2019-03-02 14:50 | PCM.SEPTIC ---
Sepsis Progress Note - Reassessment Type Date of Evaluation: 03/02/19 Time of Evaluation: 14:49 Reassessment Type: Non-invasive reassessment - Non Invasive Reassessment Were the most recent vital sign reviewed: Yes Vital Sign (Latest): Temp Pulse Resp BP Pulse Ox 98.7 F 69 20 62/30 L 100 03/02/19 10:49 03/02/19 12:33 03/02/19 12:25 03/02/19 12:33 03/02/19 12:33 Cardiovascular: Yes: Regular Rate, Rhythm. No: Edema, Irregularly Irregular Respiratory: Yes: Normal Breath Sounds Capillary Refill: Normal (Less than 2 sec) Pulses: Normal Radial, Normal Dorsalis Pedis, Normal Posterior Tibialis Skin: Normal Color - Invasive Reassessment (complete 2 of 4) Was a Central Venous Pressure Measurement obtained within 6 Hours after the presentation of septic shock: Yes Central Venous Pressure in mmHg via central catheter: 19 Was a central venous oxygen measurement obtained within 6 hours after the presentation of septic shock: No Was a bedside cardiovascular ultrasound performed within 6 hours after the presentation of septic shock: No Was a passive leg raise performed or was a fluid challenge performed within 6 hrs of the initial fluid bolus: No
[2019-03-02] MEDS: Sodium Chloride 0.9% 1,000 ML IV SCH (15:00)
[2019-03-02 15:39] LABS: URINE BILIRUBIN NEGATIVE (NEGATIVE); URINE BLOOD TRACE (NEGATIVE); URINE CLARITY Clear (Clear); URINE COLOR YELLOW (YELLOW); URINE GLUCOSE (UA) NEGATIVE (Normal); URINE LEUKOCYTE ESTERASE NEGATIVE Leu/uL (Negative); URINE PROTEIN NEGATIVE (NEGATIVE); URINE UROBILINOGEN 0.2 mg/dL (0.2-1.0)
[2019-03-02 15:40] LABS: SQUAMOUS EPITHIAL 1 /hpf (0-5); URINE BACTERIA RARE (<OCC)
[2019-03-02] MEDS: Piperacillin/Tazobact 3.375 GM in Sodium Chloride 100 ML IVPB SCH ×2 (17:00→22:10)
--- NOTE | 2019-03-02 18:04 | CT ---
Date of service: 03/02/2019 PROCEDURE: CT HEAD WITHOUT CONTRAST. HISTORY: FOUND UNRESPONSIVE COMPARISON: None available. TECHNIQUE: Axial computed tomography images were obtained through the head/brain without intravenous contrast. Radiation dose: Total exam DLP = 1208.43 mGy-cm. This CT exam was performed using one or more of the following dose reduction techniques: Automated exposure control, adjustment of the mA and/or kV according to patient size, and/or use of iterative reconstruction technique. FINDINGS: Streak artifact obscures evaluation of the skull base. HEMORRHAGE: No intracranial hemorrhage. BRAIN: Diffuse atrophy with prominence of the ventricles and sulci noted. No mass effect or edema. Intracranial atherosclerosis. Scattered periventricular and subcortical white matter hypodensities, which are nonspecific, but often seen with chronic microvascular ischemic disease. Please note that MRI with diffusion imaging is more sensitive in the detection of acute ischemic event. VENTRICLES: No hydrocephalus. CALVARIUM: Unremarkable. PARANASAL SINUSES: Unremarkable as visualized. No significant inflammatory changes. MASTOID AIR CELLS: Unremarkable as visualized. No inflammatory changes. OTHER FINDINGS: Limited study with anterior scalp and orbits excluded from view. IMPRESSION: Limited study. Generalized atrophy. Nonspecific white matter changes.
[2019-03-02] MEDS: Albuterol-Ipratrop 3 mg / 0.5 (3 ml) UD INH SCH (19:44)
[2019-03-03] MEDS: Propofol 10 mg/ml 1,000 MG/100 ML VIAL IV PRN ×3 (00:30→21:35)
[2019-03-03] MEDS: Albuterol-Ipratrop 3 mg / 0.5 (3 ml) UD INH SCH ×4 (01:03→19:52)
[2019-03-03] MEDS: Sodium Chloride 0.9% 1,000 ML IV SCH (03:15)
[2019-03-03] MEDS: Piperacillin/Tazobact 3.375 GM in Sodium Chloride 100 ML IVPB SCH ×4 (05:00→23:35)
[2019-03-03 05:28] LABS: BASO % 0.1 % (0.0-2.0); HEMOGLOBIN 7.9 g/dL (11.0-16.0); LYMPH # 0.8 K/uL (1.0-4.3); LYMPH % 7.7 % (20.0-40.0); MEAN CELL VOLUME 81.5 fL (81.0-99.0); MEAN CORPUSCULAR HEMOGLOBIN 26.7 pg (27.0-31.0); MEAN CORPUSCULAR HGB CONC 32.8 g/dL (33.0-37.0); MEAN PLATELET VOLUME 9.2 fL (7.2-11.7); MONO # 0.4 K/uL (0.0-0.8); MONO % 3.6 % (0.0-10.0); NEUT # 8.8 K/uL (1.8-7.0); NEUT % 88.6 % (50.0-75.0); NRBC % 0.1 % (0.0-2.0); PLATELET COUNT 286 K/uL (130-400); RBC 2.96 Mil/uL (3.80-5.20); RED CELL DISTRIBUTION WIDTH 15.2 % (11.5-14.5); WHITE BLOOD COUNT 9.9 K/uL (4.8-10.8)
[2019-03-03 05:48] LABS: ABG ALLEN TEST POS; ARTERIAL BLOOD GAS HCO3 25.1 mmol/L (21-28); ARTERIAL BLOOD GAS O2 SAT 98.8 % (95-98); ARTERIAL BLOOD GAS PCO2 23 mm/Hg (35-45); ARTERIAL BLOOD GAS PH 7.56 (7.35-7.45); ARTERIAL BLOOD GAS PO2 131 mm/Hg (80-100); ARTERIAL BLOOD GAS TCO2 21.3 mmol/L (22-28)
[2019-03-03 05:58] LABS: ALB/GLOB RATIO 1.2 (1.0-2.1); ALT/SGPT 75 U/L (9-52); AST/SGOT 108 U/L (14-36); BLOOD UREA NITROGEN 14 mg/dL (7-17); CALCIUM 8.2 mg/dl (8.6-10.4); GFR NON-AFRICAN AMERICAN > 60
--- NOTE | 2019-03-03 07:39 | CP.PCM.PN ---
Subjective - Date & Time of Evaluation Date of Evaluation: 03/03/19 Time of Evaluation: 07:30 - Subjective Subjective: Patient remains intubated at this time on PRVC settings and on propofol She was able to open her eyes when I called out her name Overnight the levophed was held they say at about 8PM and her blood pressures have been in the 130s to 140s systolic. On the court monitor her HR was 70s to 80s and NSR Since admission the total urine out put was recorded as 1,500 and they say overnight she had about 800 cc urine produced Tmax was 100.5 She remains on the vancomycin and zosyn. Objective - Vital Signs/Intake and Output Vital Signs (last 24 hours): Temp Pulse Resp BP Pulse Ox 99.5 F 74 20 153/80 H 100 03/03/19 04:00 03/03/19 07:00 03/03/19 07:00 03/03/19 07:00 03/03/19 07:00 Intake and Output: 03/03/19 03/03/19 06:59 18:59 Intake Total 1569.3 109.8 Output Total 800 Balance 769.3 109.8 - Medications Medications: Current Medications Albuterol/Ipratropium (Duoneb 3 Mg/0.5 Mg (3 Ml) Ud) 3 ml INH RQ6 FRANCINE Last Admin: 03/03/19 01:03 Dose: 3 ml Heparin Sodium (Porcine) (Heparin) 5,000 units SC Q8 FRANCINE Last Admin: 03/03/19 05:00 Dose: 5,000 units Hydrocortisone Sodium Succinate (Solu-Cortef) 100 mg IV Q8 [facility] Last Admin: 03/03/19 05:00 Dose: 100 mg Norepinephrine Bitartrate 4 mg (/ Dextrose) 254 mls @ 15.24 mls/hr IV .[id number] PRN; Protocol PRN Reason: TITRATE PER MD ORDER Last Titration: 03/02/19 20:00 Dose: 0 mcg/min, 0 mls/hr Vancomycin HCl 1 gm/ Sodium (Chloride) 250 mls @ 166.7 mls/hr IVPB Q24H FRANCINE; Protocol Last Admin: 03/02/19 13:59 Dose: 166.7 mls/hr Propofol (Diprivan) 1,000 mg in 100 mls @ 2.449 mls/hr IV .Q24H PRN; Protocol PRN Reason: TITRATE PER MD ORDER Last Admin: 03/03/19 06:50 Dose: 20 mcg/kg/min, 9.798 mls/hr Sodium Chloride (Sodium Chloride 0.9%) 1,000 mls @ 100 mls/hr IV .Q10H FRANCINE Last Admin: 03/03/19 03:15 Dose: 100 mls/hr Piperacillin Sod/Tazobactam (Sod 3.375 gm/ Sodium Chloride) 100 mls @ 200 mls/hr IVPB Q6H FRANCINE; Protocol Last Admin: 03/03/19 05:00 Dose: 200 mls/hr Doxycycline Hyclate 100 mg/ (Sodium Chloride) 100 mls @ 100 mls/hr IVPB Q12H FRANCINE; Protocol Last Admin: 03/03/19 03:10 Dose: 100 mls/hr Pantoprazole Sodium (Protonix Inj) 40 mg IVP DAILY FRANCINE Last Admin: 03/02/19 16:59 Dose: 40 mg - Labs Labs: 03/03/19 05:25 03/03/19 05:25 APTT 27 SECONDS (21-34) 03/02/19 12:33 - Constitutional Appears: No Acute Distress - Head Exam Head Exam: NORMAL INSPECTION, NORMOCEPHALIC - Eye Exam Eye Exam: EOMI, Normal appearance - ENT Exam ENT Exam: Mucous Membranes Moist - Respiratory Exam Respiratory Exam: Decreased Breath Sounds, NORMAL BREATHING PATTERN Additional comments: Currently intubated on PRVC - Cardiovascular Exam Cardiovascular Exam: REGULAR RHYTHM - GI/Abdominal Exam GI & Abdominal Exam: Soft, Normal Bowel Sounds. absent: Firm, Guarding, Rigid, Tenderness - Neurological Exam Neurological Exam: Altered, Awake Additional comments: Currently on propofol - Skin Skin Exam: Normal Color, Warm Assessment and Plan - Assessment and Plan (Free Text) Assessment: 63 year old female with pmhx of chronic back pain 2/2 scoliosis, depression, DVT admitted status post intubation in field after being found unresponsive Plan: AMS 03/03: The CT of the head returned and did not report hemmorage or acute findings. She has a history of being on Eliquis Currently remains intubated on propofol Sepsis, suspect from pnemonia 03/03: Tmax was recorded 100.3, on vancomycin, zosyn. Blood pressure now in the 130s to 140s systolic Was given hydrocortisone. Check echo CXR: RUL infiltrate Acute Hypercapneic Respiratory Failure 4/5: Remains intubated at this time on PRVC settings, off of leveophed Borderline positive troponins, get echo and cardiology evaluation Hypotension 4/5: Now off of levophed, sytolic BPs in the 130s and 140s The lower numbers may have been from sepsis, pending blood cultures check echo
[2019-03-03 08:26] LABS: ANISOCYTOSIS SLIGHT; HYPOCHROMIC SLIGHT; LARGE PLATELETS PRESENT; LYMPHOCYTE 6 % (20-40); MONOCYTE 3 % (0-10); NEUTROPHIL 91 % (50-75); PLATELET ESTIMATE NORMAL (NORMAL); POIKILOCYTOSIS SLIGHT; POLYCHROMIC SLIGHT; TARGET CELLS SLIGHT; TOTAL CELLS COUNTED 100
--- NOTE | 2019-03-03 10:19 | RAD ---
Date of service: 03/03/2019 HISTORY: eval et tube COMPARISON: 03/02/2019. FINDINGS: Endotracheal tube terminates 2.0 cm proximal to the rodrigo. The nasogastric tube terminates in the stomach. LUNGS: The lungs are well inflated and clear. There is mild pulmonary venous congestion and discoid atelectasis in the left upper lobe. PLEURA: No pleural effusions or pneumothorax. CARDIOVASCULAR: Persistent mild cardiomegaly. No aortic atherosclerotic calcifications present. OSSEOUS STRUCTURES: Within normal limits for the patient's age. VISUALIZED UPPER ABDOMEN: Normal. OTHER FINDINGS: None. IMPRESSION: No active pulmonary disease. Stable position of support tubes.
--- NOTE | 2019-03-03 13:29 | CP.CCUPN ---
<Chanda Ybarra - Last Filed: 03/03/19 18:50> CCU Subjective - Physician Review Subjective (Free Text): 03/03/19 18:32 Patient examined at bedside. No acute events overnight. Propofol titrated down, pt responding appropriately. Further ROS unobtainable as pt is sedated/intubated. CCU Objective - Vital Signs / Intake & Output Vital Signs (Last 4 hours): Vital Signs Pulse Resp BP Pulse Ox 03/03/19 12:55 142/72 03/03/19 12:00 86 16 142/72 100 03/03/19 11:00 76 20 139/75 100 03/03/19 10:00 76 20 139/72 100 Intake and Output (Last 8hrs): Intake & Output 03/02/19 03/03/19 03/03/19 22:59 06:59 14:59 Intake Total 1003.4 1040.9 768.7 Output Total 1050 450 520 Balance -46.6 590.9 248.7 Weight 179 lb 3.773 oz Intake: IV 94 165 31.0 Intake, IV Amount 909.4 875.9 737.7 Right Distal Port Femoral 425 Right Hand 400 800 600 Right Medial Port Femoral 56.9 75.9 37.7 Right Proximal Port 27.5 100 Femoral Output: Urine 1050 450 520 Urethral (Rendon) 1050 450 520 - Physical Exam Head: Positive for: Atraumatic, Normocephalic Pupils: Positive for: PERRL Pharnyx: Positive for: Other (intubated) Respiratory/Chest: Positive for: Other (intubated). Negative for: Rales, Rhonchi Cardiovascular: Positive for: Regular Rate and Rhythm, Normal S1, S2 Abdomen: Positive for: Normal Bowel Sounds. Negative for: Distention Upper Extremity: Positive for: Normal Inspection. Negative for: Cyanosis, Edema Lower Extremity: Positive for: Normal Inspection, Other (right femoral TLC). N egative for: Edema Skin: Positive for: Warm, Dry Psychiatric: Positive for: Alert - Medications Active Medications: Active Medications Generic Name Dose Route Start Last Admin Trade Name Freq PRN Reason Stop Dose Admin Albuterol/Ipratropium 3 ml 03/02/19 20:00 03/03/19 08:00 Duoneb 3 Mg/0.5 Mg (3 Ml) Ud INH 3 ml RQ6 FRANCINE Administration Apixaban 5 mg 03/03/19 18:00 Eliquis PO BID FRANCINE Hydrocortisone Sodium Succinate 100 mg 03/02/19 14:45 03/03/19 05:00 Solu-Cortef IV 100 mg Q8 FRANCINE Administration Norepinephrine Bitartrate 4 mg 254 mls @ 15.24 mls/hr 03/02/19 11:55 03/02/19 20:00 / Dextrose IV 0 mcg/min .[id number] PRN 0 mls/hr TITRATE PER MD ORDER Titration Protocol 4 MCG/MIN Vancomycin HCl 1 gm/ Sodium 250 mls @ 166.7 mls/hr 03/02/19 12:15 03/03/19 12:59 Chloride IVPB 166.7 mls/hr Q24H FRANCINE Administration Protocol Propofol 1,000 mg in 100 mls @ 2.449 mls/hr 03/02/19 13:08 03/03/19 12:30 Diprivan IV 18 mcg/kg/min .Q24H PRN 8.818 mls/hr TITRATE PER MD ORDER Titration Protocol 5 MCG/KG/MIN Piperacillin Sod/Tazobactam 100 mls @ 200 mls/hr 03/02/19 17:00 03/03/19 10:54 Sod 3.375 gm/ Sodium Chloride IVPB 200 mls/hr Q6H FRANCINE Administration Protocol Doxycycline Hyclate 100 mg/ 100 mls @ 100 mls/hr 03/02/19 16:00 03/03/19 03:10 Sodium Chloride IVPB 100 mls/hr Q12H FRANCINE Administration Protocol Pantoprazole Sodium 40 mg 03/02/19 16:30 03/03/19 09:56 Protonix Inj IVP 40 mg DAILY FRANCINE Administration - Patient Studies Lab Studies: Microbiology Studies 03/02/19 15:25 Urine Culture - Final Urine,Catheterized No Growth (<1,000 CFU/ML) 03/02/19 19:50 Gram Stain - Final Trachasp Lab Studies 03/03/19 03/03/19 03/03/19 Range/Units 09:10 05:29 05:25 WBC (4.8-10.8) K/uL RBC (3.80-5.20) Mil/uL Hgb (11.0-16.0) g/dL Hct (34.0-47.0) % MCV (81.0-99.0) fL MCH (27.0-31.0) pg MCHC (33.0-37.0) g/dL RDW (11.5-14.5) % Plt Count (130-400) K/uL MPV (7.2-11.7) fL Neut % (Auto) (50.0-75.0) % Lymph % (Auto) (20.0-40.0) % [place] % (Auto) (0.0-10.0) % Eos % (Auto) (0.0-4.0) % Baso % (Auto) (0.0-2.0) % Neut # (Auto) (1.8-7.0) K/uL Lymph # (Auto) (1.0-4.3) K/uL [place] # (Auto) (0.0-0.8) K/uL Eos # (Auto) (0.0-0.7) K/uL Baso # (Auto) (0.0-0.2) K/uL Neutrophils % (Manual) (50-75) % Lymphocytes % (Manual) (20-40) % Monocytes % (Manual) (0-10) % Platelet Estimate (NORMAL) Large Platelets Polychromasia Hypochromasia (manual) Poikilocytosis (manual Anisocytosis (manual) Target Cells Puncture Site Rr pCO2 23 L (35-45) mm/Hg pO2 131 H (80-100) mm/Hg HCO3 25.1 (21-28) mmol/L ABG pH 7.56 H (7.35-7.45) ABG Total CO2 21.3 L (22-28) mmol/L ABG O2 Saturation 98.8 H (95-98) % ABG Base Excess 0.1 (-2.0-3.0) mmol/L Keo Test Pos ABG Potassium 3.3 L (3.6-5.2) mmol/L A-a O2 Difference 125.0 mm/Hg Respiratory Index 1.0 Sodium 140.0 137 (132-148) mmol/l Chloride 109.0 H 107 (98-107) mmol/L Glucose 133 H (65-105) mg/dl Lactate 1.6 (0.7-2.1) mmol/L Vent Mode Prvc Mechanical Rate 20 FiO2 40.0 % Tidal Volume 500 PEEP 5 Crit Value Called To Crit Value Called By Crit Value Read Back Blood Gas Notified Time Potassium 3.4 L (3.6-5.2) mmol/L Carbon Dioxide 23 (22-30) mmol/L Anion Gap 10 (10-20) BUN 14 (7-17) mg/dL Creatinine 0.8 (0.7-1.2) mg/dL Est GFR ( Amer) > 60 Est GFR (Non-Af Amer) > 60 Random Glucose 137 H D (65-105) mg/dL Lactic Acid (0.7-2.1) mmol/L Calcium 8.2 L (8.6-10.4) mg/dl Phosphorus 2.8 (2.5-4.5) mg/dL Magnesium 1.6 (1.6-2.3) mg/dL Total Bilirubin 0.5 (0.2-1.3) mg/dL AST 108 H D (14-36) U/L ALT 75 H D (9-52) U/L Alkaline Phosphatase 62 (38-126) U/L Total Creatine Kinase (30-135) U/L Troponin I 0.1120 (0.00-0.120) ng/mL Total Protein 5.4 L (6.3-8.3) g/dL Albumin 3.0 L D (3.5-5.0) g/dL Globulin 2.5 (2.2-3.9) gm/dL Albumin/Globulin Ratio 1.2 (1.0-2.1) Arterial Blood Potassium 3.3 L (3.6-5.2) mmol/L Urine Color (YELLOW) Urine Clarity (Clear) Urine pH (5.0-8.0) Ur Specific [place] (1.003-1.030) Urine Protein (NEGATIVE) mg/dL Urine Glucose (UA) (Normal) mg/dL Urine Ketones (NEGATIVE) mg/dL Urine Blood (NEGATIVE) Urine Nitrate (NEGATIVE) Urine Bilirubin (NEGATIVE) Urine Urobilinogen (0.2-1.0) mg/dL Ur Leukocyte Esterase (Negative) Emilia/uL Urine WBC (Auto) (0-5) /hpf Urine RBC (Auto) (0-3) /hpf Ur Squamous Epith Cells (0-5) /hpf Urine Bacteria (<OCC) 03/03/19 03/03/19 03/02/19 Range/Units 05:25 00:47 19:50 WBC 9.9 (4.8-10.8) K/uL RBC 2.96 L (3.80-5.20) Mil/uL Hgb 7.9 L (11.0-16.0) g/dL Hct 24.1 L (34.0-47.0) % MCV 81.5 D (81.0-99.0) fL MCH 26.7 L (27.0-31.0) pg MCHC 32.8 L (33.0-37.0) g/dL RDW 15.2 H (11.5-14.5) % Plt Count 286 (130-400) K/uL MPV 9.2 (7.2-11.7) fL Neut % (Auto) 88.6 H (50.0-75.0) % Lymph % (Auto) 7.7 L (20.0-40.0) % [place] % (Auto) 3.6 (0.0-10.0) % Eos % (Auto) 0.0 (0.0-4.0) % Baso % (Auto) 0.1 (0.0-2.0) % Neut # (Auto) 8.8 H (1.8-7.0) K/uL Lymph # (Auto) 0.8 L (1.0-4.3) K/uL [place] # (Auto) 0.4 (0.0-0.8) K/uL Eos # (Auto) 0.0 (0.0-0.7) K/uL Baso # (Auto) 0.0 (0.0-0.2) K/uL Neutrophils % (Manual) 91 H (50-75) % Lymphocytes % (Manual) 6 L (20-40) % Monocytes % (Manual) 3 (0-10) % Platelet Estimate Normal (NORMAL) Large Platelets Present Polychromasia Slight Hypochromasia (manual) Slight Poikilocytosis (manual Slight Anisocytosis (manual) Slight Target Cells Slight Puncture Site pCO2 (35-45) mm/Hg pO2 (80-100) mm/Hg HCO3 (21-28) mmol/L ABG pH (7.35-7.45) ABG Total CO2 (22-28) mmol/L ABG O2 Saturation (95-98) % ABG Base Excess (-2.0-3.0) mmol/L Keo Test ABG Potassium (3.6-5.2) mmol/L A-a O2 Difference mm/Hg Respiratory Index Sodium (132-148) mmol/l Chloride (98-107) mmol/L Glucose (65-105) mg/dl Lactate (0.7-2.1) mmol/L Vent Mode Mechanical Rate FiO2 % Tidal Volume PEEP Crit Value Called To Crit Value Called By Crit Value Read Back Blood Gas Notified Time Potassium (3.6-5.2) mmol/L Carbon Dioxide (22-30) mmol/L Anion Gap (10-20) BUN (7-17) mg/dL Creatinine (0.7-1.2) mg/dL Est GFR ( Amer) Est GFR (Non-Af Amer) Random Glucose (65-105) mg/dL Lactic Acid (0.7-2.1) mmol/L Calcium (8.6-10.4) mg/dl Phosphorus (2.5-4.5) mg/dL Magnesium (1.6-2.3) mg/dL Total Bilirubin (0.2-1.3) mg/dL AST (14-36) U/L ALT (9-52) U/L Alkaline Phosphatase (38-126) U/L Total Creatine Kinase 146 H (30-135) U/L Troponin I 0.2370 H* (0.00-0.120) ng/mL Total Protein (6.3-8.3) g/dL Albumin (3.5-5.0) g/dL Globulin (2.2-3.9) gm/dL Albumin/Globulin Ratio (1.0-2.1) Arterial Blood Potassium (3.6-5.2) mmol/L Urine Color (YELLOW) Urine Clarity (Clear) Urine pH (5.0-8.0) Ur Specific [place] (1.003-1.030) Urine Protein (NEGATIVE) mg/dL Urine Glucose (UA) (Normal) mg/dL Urine Ketones (NEGATIVE) mg/dL Urine Blood (NEGATIVE) Urine Nitrate (NEGATIVE) Urine Bilirubin (NEGATIVE) Urine Urobilinogen (0.2-1.0) mg/dL Ur Leukocyte Esterase (Negative) Emilia/uL Urine WBC (Auto) (0-5) /hpf Urine RBC (Auto) (0-3) /hpf Ur Squamous Epith Cells (0-5) /hpf Urine Bacteria (<OCC) 03/02/19 03/02/19 03/02/19 Range/Units 19:50 17:58 15:25 WBC (4.8-10.8) K/uL RBC (3.80-5.20) Mil/uL Hgb (11.0-16.0) g/dL Hct (34.0-47.0) % MCV (81.0-99.0) fL MCH (27.0-31.0) pg MCHC (33.0-37.0) g/dL RDW (11.5-14.5) % Plt Count (130-400) K/uL MPV (7.2-11.7) fL Neut % (Auto) (50.0-75.0) % Lymph % (Auto) (20.0-40.0) % [place] % (Auto) (0.0-10.0) % Eos % (Auto) (0.0-4.0) % Baso % (Auto) (0.0-2.0) % Neut # (Auto) (1.8-7.0) K/uL Lymph # (Auto) (1.0-4.3) K/uL [place] # (Auto) (0.0-0.8) K/uL Eos # (Auto) (0.0-0.7) K/uL Baso # (Auto) (0.0-0.2) K/uL Neutrophils % (Manual) (50-75) % Lymphocytes % (Manual) (20-40) % Monocytes % (Manual) (0-10) % Platelet Estimate (NORMAL) Large Platelets Polychromasia Hypochromasia (manual) Poikilocytosis (manual Anisocytosis (manual) Target Cells Puncture Site pCO2 (35-45) mm/Hg pO2 (80-100) mm/Hg HCO3 (21-28) mmol/L ABG pH (7.35-7.45) ABG Total CO2 (22-28) mmol/L ABG O2 Saturation (95-98) % ABG Base Excess (-2.0-3.0) mmol/L Keo Test ABG Potassium (3.6-5.2) mmol/L A-a O2 Difference mm/Hg Respiratory Index Sodium (132-148) mmol/l Chloride (98-107) mmol/L Glucose (65-105) mg/dl Lactate (0.7-2.1) mmol/L Vent Mode Mechanical Rate FiO2 % Tidal Volume PEEP Crit Value Called To Crit Value Called By Crit Value Read Back Blood Gas Notified Time Potassium (3.6-5.2) mmol/L Carbon Dioxide (22-30) mmol/L Anion Gap (10-20) BUN (7-17) mg/dL Creatinine (0.7-1.2) mg/dL Est GFR ( Amer) Est GFR (Non-Af Amer) Random Glucose (65-105) mg/dL Lactic Acid 2.1 (0.7-2.1) mmol/L Calcium (8.6-10.4) mg/dl Phosphorus (2.5-4.5) mg/dL Magnesium (1.6-2.3) mg/dL Total Bilirubin (0.2-1.3) mg/dL AST (14-36) U/L ALT (9-52) U/L Alkaline Phosphatase (38-126) U/L Total Creatine Kinase (30-135) U/L Troponin I 0.3220 H* (0.00-0.120) ng/mL Total Protein (6.3-8.3) g/dL Albumin (3.5-5.0) g/dL Globulin (2.2-3.9) gm/dL Albumin/Globulin Ratio (1.0-2.1) Arterial Blood Potassium (3.6-5.2) mmol/L Urine Color Yellow (YELLOW) Urine Clarity Clear (Clear) Urine pH 6.0 (5.0-8.0) Ur Specific [place] 1.025 (1.003-1.030) Urine Protein Negative (NEGATIVE) mg/dL Urine Glucose (UA) Negative (Normal) mg/dL Urine Ketones Negative (NEGATIVE) mg/dL Urine Blood Trace (NEGATIVE) Urine Nitrate Negative (NEGATIVE) Urine Bilirubin Negative (NEGATIVE) Urine Urobilinogen 0.2 (0.2-1.0) mg/dL Ur Leukocyte Esterase Negative (Negative) Emilia/uL Urine WBC (Auto) < 1 (0-5) /hpf Urine RBC (Auto) 3 (0-3) /hpf Ur Squamous Epith Cells 1 (0-5) /hpf Urine Bacteria Rare (<OCC) 03/02/19 03/02/19 Range/Units 13:43 13:16 WBC (4.8-10.8) K/uL RBC (3.80-5.20) Mil/uL Hgb (11.0-16.0) g/dL Hct (34.0-47.0) % MCV (81.0-99.0) fL MCH (27.0-31.0) pg MCHC (33.0-37.0) g/dL RDW (11.5-14.5) % Plt Count (130-400) K/uL MPV (7.2-11.7) fL Neut % (Auto) (50.0-75.0) % Lymph % (Auto) (20.0-40.0) % [place] % (Auto) (0.0-10.0) % Eos % (Auto) (0.0-4.0) % Baso % (Auto) (0.0-2.0) % Neut # (Auto) (1.8-7.0) K/uL Lymph # (Auto) (1.0-4.3) K/uL [place] # (Auto) (0.0-0.8) K/uL Eos # (Auto) (0.0-0.7) K/uL Baso # (Auto) (0.0-0.2) K/uL Neutrophils % (Manual) (50-75) % Lymphocytes % (Manual) (20-40) % Monocytes % (Manual) (0-10) % Platelet Estimate (NORMAL) Large Platelets Polychromasia Hypochromasia (manual) Poikilocytosis (manual Anisocytosis (manual) Target Cells Puncture Site Rba pCO2 32 L (35-45) mm/Hg pO2 405 H (80-100) mm/Hg HCO3 19.2 L (21-28) mmol/L ABG pH 7.34 L (7.35-7.45) ABG Total CO2 18.3 L (22-28) mmol/L ABG O2 Saturation 98.6 H (95-98) % ABG Base Excess -7.4 L (-2.0-3.0) mmol/L Keo Test Na ABG Potassium 5.1 (3.6-5.2) mmol/L A-a O2 Difference 268.0 mm/Hg Respiratory Index 0.7 Sodium 136.0 (132-148) mmol/l Chloride 108.0 H (98-107) mmol/L Glucose 132 H (65-105) mg/dl Lactate 4.1 H* (0.7-2.1) mmol/L Vent Mode Prvc Mechanical Rate FiO2 100.0 % Tidal Volume 500 PEEP 5 Crit Value Called To Diony jenkins Crit Value Called By Blaze cagle,inspector final assembly mechanical Crit Value Read Back Y Blood Gas Notified Time 1350 Potassium (3.6-5.2) mmol/L Carbon Dioxide (22-30) mmol/L Anion Gap (10-20) BUN (7-17) mg/dL Creatinine (0.7-1.2) mg/dL Est GFR ( Amer) Est GFR (Non-Af Amer) Random Glucose (65-105) mg/dL Lactic Acid 3.1 H (0.7-2.1) mmol/L Calcium (8.6-10.4) mg/dl Phosphorus (2.5-4.5) mg/dL Magnesium (1.6-2.3) mg/dL Total Bilirubin (0.2-1.3) mg/dL AST (14-36) U/L ALT (9-52) U/L Alkaline Phosphatase (38-126) U/L Total Creatine Kinase (30-135) U/L Troponin I (0.00-0.120) ng/mL Total Protein (6.3-8.3) g/dL Albumin (3.5-5.0) g/dL Globulin (2.2-3.9) gm/dL Albumin/Globulin Ratio (1.0-2.1) Arterial Blood Potassium 5.1 (3.6-5.2) mmol/L Urine Color (YELLOW) Urine Clarity (Clear) Urine pH (5.0-8.0) Ur Specific [place] (1.003-1.030) Urine Protein (NEGATIVE) mg/dL Urine Glucose (UA) (Normal) mg/dL Urine Ketones (NEGATIVE) mg/dL Urine Blood (NEGATIVE) Urine Nitrate (NEGATIVE) Urine Bilirubin (NEGATIVE) Urine Urobilinogen (0.2-1.0) mg/dL Ur Leukocyte Esterase (Negative) Emilia/uL Urine WBC (Auto) (0-5) /hpf Urine RBC (Auto) (0-3) /hpf Ur Squamous Epith Cells (0-5) /hpf Urine Bacteria (<OCC) Laboratory Results - last 24 hr 03/02/19 03/02/19 03/02/19 13:16 13:43 15:25 WBC RBC Hgb Hct MCV MCH MCHC RDW Plt Count MPV Neut % (Auto) Lymph % (Auto) [place] % (Auto) Eos % (Auto) Baso % (Auto) Neut # (Auto) Lymph # (Auto) [place] # (Auto) Eos # (Auto) Baso # (Auto) Neutrophils % (Manual) Lymphocytes % (Manual) Monocytes % (Manual) Platelet Estimate Large Platelets Polychromasia Hypochromasia (manual) Poikilocytosis (manual Anisocytosis (manual) Target Cells Puncture Site Rba pCO2 32 L pO2 405 H HCO3 19.2 L ABG pH 7.34 L ABG Total CO2 18.3 L ABG O2 Saturation 98.6 H ABG Base Excess -7.4 L Keo Test Na ABG Potassium 5.1 A-a O2 Difference 268.0 Respiratory Index 0.7 Sodium 136.0 Chloride 108.0 H Glucose 132 H Lactate 4.1 H* Vent Mode Prvc Mechanical Rate FiO2 100.0 Tidal Volume 500 PEEP 5 Crit Value Called To Diony jenkins Crit Value Called By Blaze cagle,inspector final assembly mechanical Crit Value Read Back Y Blood Gas Notified Time 1350 Potassium Carbon Dioxide Anion Gap BUN Creatinine Est GFR ( Amer) Est GFR (Non-Af Amer) Random Glucose Lactic Acid 3.1 H Calcium Phosphorus Magnesium Total Bilirubin AST ALT Alkaline Phosphatase Total Creatine Kinase Troponin I Total Protein Albumin Globulin Albumin/Globulin Ratio Arterial Blood Potassium 5.1 Urine Color Yellow Urine Clarity Clear Urine pH 6.0 Ur Specific [place] 1.025 Urine Protein Negative Urine Glucose (UA) Negative Urine Ketones Negative Urine Blood Trace Urine Nitrate Negative Urine Bilirubin Negative Urine Urobilinogen 0.2 Ur Leukocyte Esterase Negative Urine WBC (Auto) < 1 Urine RBC (Auto) 3 Ur Squamous Epith Cells 1 Urine Bacteria Rare 03/02/19 03/02/19 03/02/19 17:58 19:50 19:50 WBC RBC Hgb Hct MCV MCH MCHC RDW Plt Count MPV Neut % (Auto) Lymph % (Auto) [place] % (Auto) Eos % (Auto) Baso % (Auto) Neut # (Auto) Lymph # (Auto) [place] # (Auto) Eos # (Auto) Baso # (Auto) Neutrophils % (Manual) Lymphocytes % (Manual) Monocytes % (Manual) Platelet Estimate Large Platelets Polychromasia Hypochromasia (manual) Poikilocytosis (manual Anisocytosis (manual) Target Cells Puncture Site pCO2 pO2 HCO3 ABG pH ABG Total CO2 ABG O2 Saturation ABG Base Excess Keo Test ABG Potassium A-a O2 Difference Respiratory Index Sodium Chloride Glucose Lactate Vent Mode Mechanical Rate FiO2 Tidal Volume PEEP Crit Value Called To Crit Value Called By Crit Value Read Back Blood Gas Notified Time Potassium Carbon Dioxide Anion Gap BUN Creatinine Est GFR ( Amer) Est GFR (Non-Af Amer) Random Glucose Lactic Acid 2.1 Calcium Phosphorus Magnesium Total Bilirubin AST ALT Alkaline Phosphatase Total Creatine Kinase 146 H Troponin I 0.3220 H* Total Protein Albumin Globulin Albumin/Globulin Ratio Arterial Blood Potassium Urine Color Urine Clarity Urine pH Ur Specific [place] Urine Protein Urine Glucose (UA) Urine Ketones Urine Blood Urine Nitrate Urine Bilirubin Urine Urobilinogen Ur Leukocyte Esterase Urine WBC (Auto) Urine RBC (Auto) Ur Squamous Epith Cells Urine Bacteria 03/03/19 03/03/19 03/03/19 00:47 05:25 05:25 WBC 9.9 RBC 2.96 L Hgb 7.9 L Hct 24.1 L MCV 81.5 D MCH 26.7 L MCHC 32.8 L RDW 15.2 H Plt Count 286 MPV 9.2 Neut % (Auto) 88.6 H Lymph % (Auto) 7.7 L [place] % (Auto) 3.6 Eos % (Auto) 0.0 Baso % (Auto) 0.1 Neut # (Auto) 8.8 H Lymph # (Auto) 0.8 L [place] # (Auto) 0.4 Eos # (Auto) 0.0 Baso # (Auto) 0.0 Neutrophils % (Manual) 91 H Lymphocytes % (Manual) 6 L Monocytes % (Manual) 3 Platelet Estimate Normal Large Platelets Present Polychromasia Slight Hypochromasia (manual) Slight Poikilocytosis (manual Slight Anisocytosis (manual) Slight Target Cells Slight Puncture Site pCO2 pO2 HCO3 ABG pH ABG Total CO2 ABG O2 Saturation ABG Base Excess Keo Test ABG Potassium A-a O2 Difference Respiratory Index Sodium 137 Chloride 107 Glucose Lactate Vent Mode Mechanical Rate FiO2 Tidal Volume PEEP Crit Value Called To Crit Value Called By Crit Value Read Back Blood Gas Notified Time Potassium 3.4 L Carbon Dioxide 23 Anion Gap 10 BUN 14 Creatinine 0.8 Est GFR ( Amer) > 60 Est GFR (Non-Af Amer) > 60 Random Glucose 137 H D Lactic Acid Calcium 8.2 L Phosphorus 2.8 Magnesium 1.6 Total Bilirubin 0.5 AST 108 H D ALT 75 H D Alkaline Phosphatase 62 Total Creatine Kinase Troponin I 0.2370 H* Total Protein 5.4 L Albumin 3.0 L D Globulin 2.5 Albumin/Globulin Ratio 1.2 Arterial Blood Potassium Urine Color Urine Clarity Urine pH Ur Specific [place] Urine Protein Urine Glucose (UA) Urine Ketones Urine Blood Urine Nitrate Urine Bilirubin Urine Urobilinogen Ur Leukocyte Esterase Urine WBC (Auto) Urine RBC (Auto) Ur Squamous Epith Cells Urine Bacteria 03/03/19 03/03/19 05:29 09:10 WBC RBC Hgb Hct MCV MCH MCHC RDW Plt Count MPV Neut % (Auto) Lymph % (Auto) [place] % (Auto) Eos % (Auto) Baso % (Auto) Neut # (Auto) Lymph # (Auto) [place] # (Auto) Eos # (Auto) Baso # (Auto) Neutrophils % (Manual) Lymphocytes % (Manual) Monocytes % (Manual) Platelet Estimate Large Platelets Polychromasia Hypochromasia (manual) Poikilocytosis (manual Anisocytosis (manual) Target Cells Puncture Site Rr pCO2 23 L pO2 131 H HCO3 25.1 ABG pH 7.56 H ABG Total CO2 21.3 L ABG O2 Saturation 98.8 H ABG Base Excess 0.1 Keo Test Pos ABG Potassium 3.3 L A-a O2 Difference 125.0 Respiratory Index 1.0 Sodium 140.0 Chloride 109.0 H Glucose 133 H Lactate 1.6 Vent Mode Prvc Mechanical Rate 20 FiO2 40.0 Tidal Volume 500 PEEP 5 Crit Value Called To Crit Value Called By Crit Value Read Back Blood Gas Notified Time Potassium Carbon Dioxide Anion Gap BUN Creatinine Est GFR ( Amer) Est GFR (Non-Af Amer) Random Glucose Lactic Acid Calcium Phosphorus Magnesium Total Bilirubin AST ALT Alkaline Phosphatase Total Creatine Kinase Troponin I 0.1120 Total Protein Albumin Globulin Albumin/Globulin Ratio Arterial Blood Potassium 3.3 L Urine Color Urine Clarity Urine pH Ur Specific [place] Urine Protein Urine Glucose (UA) Urine Ketones Urine Blood Urine Nitrate Urine Bilirubin Urine Urobilinogen Ur Leukocyte Esterase Urine WBC (Auto) Urine RBC (Auto) Ur Squamous Epith Cells Urine Bacteria Radiology Impressions: Radiology Impressions Chest X-Ray 03/02/19 12:41 IMPRESSION: Endotracheal tube terminates approximately 1.8 cm above the rodrigo. Medial right upper lobe infiltrate. Cardiomegaly. Head CT 03/02/19 17:09 IMPRESSION: Limited study. Generalized atrophy. Nonspecific white matter changes. Chest X-Ray 03/03/19 08:00 IMPRESSION: No active pulmonary disease. Stable position of support tubes. EKG/Cardiology Studies: Cardiology / EKG Studies 03/03/19 13:08 EKG [ELECTROCARDIOGRAM] Routine Comment: Mode Of Transportation: Reason For Exam: CO Fingerstick Blood Sugar Results: 172 Review of Systems - Review of Systems Systems not reviewed;Unavailable: Intubated Assessment/Plan - Assessment and Plan (Free Text) Assessment: 63 year old female admitted s/p intubation for hypercapneic respiratory failure 2/2 AMS Plan: Neuro: Propofol sedation, titrating down, currently @5 febrile ON 100.5, ice packs Pulm: Hypercapneic respiratory failure 2/2 AMS Intubated on mechanical ventilation Duonebs Code sepsis called 2/2 suspected infiltrate; doxy, zosyn, vanco Chest CT: Mild b/l LL dependant atelectasis, no infiltrate, minimal b/l pleural effusions CV: HD stable; VSS No longer requiring pressors, levophed stopped yesterday evening PICC line ordered, to d/c femoral line once placed Blood cxs prelim negative Trops mildly elevated but trending down Restart home eliquis; hx of DVTs f/u LE duplex B/L Echo ordered Cardio consult, Dr. Juarez GI: NPO OG tube in place : rendon I/Os Ppx: Eliquis Protonix Plan to extubate pending cardio eval Discussed w/ Dr. Root -Chanda Ybarra, PGY-1 <Kaan Root M - Last Filed: 03/04/19 20:09> CCU Objective - Vital Signs / Intake & Output Vital Signs (Last 4 hours): Vital Signs Pulse Resp BP Pulse Ox 03/04/19 19:00 81 14 139/73 100 03/04/19 18:00 80 15 142/80 100 03/04/19 17:00 77 21 142/82 100 Intake and Output (Last 8hrs): Intake & Output 03/04/19 03/04/19 03/04/19 06:59 14:59 22:59 Intake Total 567.0 358.6 Output Total 390 420 190 Balance 177.0 -61.4 -190 Weight 158 lb 11.725 oz Intake: IV 155 34 Intake, IV Amount 412.0 324.6 Right Medial Port Femoral 112.0 24.6 Right Proximal Port 300 300 Femoral Output: Urine 390 420 190 Urethral (Rendon) 390 420 190 Other: # Bowel Movements 1 - Medications Active Medications: Active Medications Generic Name Dose Route Start Last Admin Trade Name Freq PRN Reason Stop Dose Admin Albuterol/Ipratropium 3 ml 03/02/19 20:00 03/04/19 19:58 Duoneb 3 Mg/0.5 Mg (3 Ml) Ud INH 3 ml RQ6 FRANCINE Administration Apixaban 5 mg 03/03/19 18:00 03/04/19 18:04 Eliquis PO 5 mg BID FRANCINE Administration Norepinephrine Bitartrate 4 mg 254 mls @ 15.24 mls/hr 03/02/19 11:55 03/02/19 20:00 / Dextrose IV 0 mcg/min .[id number] PRN 0 mls/hr TITRATE PER MD ORDER Titration Protocol 4 MCG/MIN - Patient Studies Lab Studies: Microbiology Studies 03/02/19 12:00 Blood Culture - Preliminary Blood NO GROWTH AFTER 48 HOURS 03/02/19 11:30 Blood Culture - Preliminary Blood NO GROWTH AFTER 48 HOURS 03/02/19 19:50 Gram Stain - Final Trachasp Sputum Culture - Final NORMAL ORAL BROOK 03/02/19 15:25 MRSA Culture (Admit) - Final Naris MRSA NOT DETECTED Lab Studies 03/04/19 03/04/19 03/04/19 Range/Units 08:11 06:31 06:31 WBC 10.7 (4.8-10.8) K/uL RBC 2.75 L (3.80-5.20) Mil/uL Hgb 7.2 L (11.0-16.0) g/dL Hct 22.5 L (34.0-47.0) % MCV 81.8 (81.0-99.0) fL MCH 26.3 L (27.0-31.0) pg MCHC 32.1 L (33.0-37.0) g/dL RDW 15.4 H (11.5-14.5) % Plt Count 269 (130-400) K/uL MPV 9.5 (7.2-11.7) fL Neut % (Auto) 86.5 H (50.0-75.0) % Lymph % (Auto) 7.6 L (20.0-40.0) % [place] % (Auto) 5.6 (0.0-10.0) % Eos % (Auto) 0.0 (0.0-4.0) % Baso % (Auto) 0.3 (0.0-2.0) % Neut # (Auto) 9.2 H (1.8-7.0) K/uL Lymph # (Auto) 0.8 L (1.0-4.3) K/uL [place] # (Auto) 0.6 (0.0-0.8) K/uL Eos # (Auto) 0.0 (0.0-0.7) K/uL Baso # (Auto) 0.0 (0.0-0.2) K/uL Neutrophils % (Manual) 86 H (50-75) % Lymphocytes % (Manual) 7 L (20-40) % Monocytes % (Manual) 7 (0-10) % Platelet Estimate Normal (NORMAL) Large Platelets Present Polychromasia Slight Hypochromasia (manual) Moderate Anisocytosis (manual) Slight Puncture Site pCO2 (35-45) mm/Hg pO2 (80-100) mm/Hg HCO3 (21-28) mmol/L ABG pH (7.35-7.45) ABG Total CO2 (22-28) mmol/L ABG O2 Saturation (95-98) % ABG Base Excess (-2.0-3.0) mmol/L ABG Hemoglobin (11.7-17.4) g/dL ABG Carboxyhemoglobin (0.5-1.5) % POC ABG HHb (Measured) (0.0-5.0) % ABG Methemoglobin (0.0-3.0) % Keo Test A-a O2 Difference mm/Hg Respiratory Index Hgb O2 Saturation (95.0-98.0) % Vent Mode Mechanical Rate FiO2 % Tidal Volume PEEP Sodium 139 (132-148) mmol/L Potassium 3.1 L (3.6-5.2) mmol/L Chloride 108 H (98-107) mmol/L Carbon Dioxide 26 (22-30) mmol/L Anion Gap 8 L (10-20) BUN 13 (7-17) mg/dL Creatinine 0.7 (0.7-1.2) mg/dL Est GFR ( Amer) > 60 Est GFR (Non-Af Amer) > 60 Random Glucose 125 H (65-105) mg/dL Calcium 8.0 L (8.6-10.4) mg/dl Phosphorus 2.4 L (2.5-4.5) mg/dL Magnesium 2.1 (1.6-2.3) mg/dL Total Bilirubin 0.3 (0.2-1.3) mg/dL AST 69 H D (14-36) U/L ALT 66 H (9-52) U/L Alkaline Phosphatase 60 (38-126) U/L Total Protein 5.7 L (6.3-8.3) g/dL Albumin 3.2 L (3.5-5.0) g/dL Globulin 2.5 (2.2-3.9) gm/dL Albumin/Globulin Ratio 1.3 (1.0-2.1) Blood Type A NEGATIVE Antibody Screen Negative 03/04/19 Range/Units 05:15 WBC (4.8-10.8) K/uL RBC (3.80-5.20) Mil/uL Hgb (11.0-16.0) g/dL Hct (34.0-47.0) % MCV (81.0-99.0) fL MCH (27.0-31.0) pg MCHC (33.0-37.0) g/dL RDW (11.5-14.5) % Plt Count (130-400) K/uL MPV (7.2-11.7) fL Neut % (Auto) (50.0-75.0) % Lymph % (Auto) (20.0-40.0) % [place] % (Auto) (0.0-10.0) % Eos % (Auto) (0.0-4.0) % Baso % (Auto) (0.0-2.0) % Neut # (Auto) (1.8-7.0) K/uL Lymph # (Auto) (1.0-4.3) K/uL [place] # (Auto) (0.0-0.8) K/uL Eos # (Auto) (0.0-0.7) K/uL Baso # (Auto) (0.0-0.2) K/uL Neutrophils % (Manual) (50-75) % Lymphocytes % (Manual) (20-40) % Monocytes % (Manual) (0-10) % Platelet Estimate (NORMAL) Large Platelets Polychromasia Hypochromasia (manual) Anisocytosis (manual) Puncture Site R brac pCO2 31 L (35-45) mm/Hg pO2 125 H (80-100) mm/Hg HCO3 26.3 (21-28) mmol/L ABG pH 7.51 H (7.35-7.45) ABG Total CO2 25.7 (22-28) mmol/L ABG O2 Saturation 98.3 H (95-98) % ABG Base Excess 1.7 (-2.0-3.0) mmol/L ABG Hemoglobin 7.2 L (11.7-17.4) g/dL ABG Carboxyhemoglobin 0.9 (0.5-1.5) % POC ABG HHb (Measured) 1.7 (0.0-5.0) % ABG Methemoglobin 0.2 (0.0-3.0) % Keo Test Na A-a O2 Difference 121.0 mm/Hg Respiratory Index 1.0 Hgb O2 Saturation 97.2 (95.0-98.0) % Vent Mode Prvc Mechanical Rate 16 FiO2 40.0 % Tidal Volume 500 PEEP 5 Sodium (132-148) mmol/L Potassium (3.6-5.2) mmol/L Chloride (98-107) mmol/L Carbon Dioxide (22-30) mmol/L Anion Gap (10-20) BUN (7-17) mg/dL Creatinine (0.7-1.2) mg/dL Est GFR ( Amer) Est GFR (Non-Af Amer) Random Glucose (65-105) mg/dL Calcium (8.6-10.4) mg/dl Phosphorus (2.5-4.5) mg/dL Magnesium (1.6-2.3) mg/dL Total Bilirubin (0.2-1.3) mg/dL AST (14-36) U/L ALT (9-52) U/L Alkaline Phosphatase (38-126) U/L Total Protein (6.3-8.3) g/dL Albumin (3.5-5.0) g/dL Globulin (2.2-3.9) gm/dL Albumin/Globulin Ratio (1.0-2.1) Blood Type Antibody Screen Laboratory Results - last 24 hr 03/04/19 03/04/19 03/04/19 05:15 06:31 06:31 WBC 10.7 RBC 2.75 L Hgb 7.2 L Hct 22.5 L MCV 81.8 MCH 26.3 L MCHC 32.1 L RDW 15.4 H Plt Count 269 MPV 9.5 Neut % (Auto) 86.5 H Lymph % (Auto) 7.6 L [place] % (Auto) 5.6 Eos % (Auto) 0.0 Baso % (Auto) 0.3 Neut # (Auto) 9.2 H Lymph # (Auto) 0.8 L [place] # (Auto) 0.6 Eos # (Auto) 0.0 Baso # (Auto) 0.0 Neutrophils % (Manual) 86 H Lymphocytes % (Manual) 7 L Monocytes % (Manual) 7 Platelet Estimate Normal Large Platelets Present Polychromasia Slight Hypochromasia (manual) Moderate Anisocytosis (manual) Slight Puncture Site R brac pCO2 31 L pO2 125 H HCO3 26.3 ABG pH 7.51 H ABG Total CO2 25.7 ABG O2 Saturation 98.3 H ABG Base Excess 1.7 ABG Hemoglobin 7.2 L ABG Carboxyhemoglobin 0.9 POC ABG HHb (Measured) 1.7 ABG Methemoglobin 0.2 Keo Test Na A-a O2 Difference 121.0 Respiratory Index 1.0 Hgb O2 Saturation 97.2 Vent Mode Prvc Mechanical Rate 16 FiO2 40.0 Tidal Volume 500 PEEP 5 Sodium 139 Potassium 3.1 L Chloride 108 H Carbon Dioxide 26 Anion Gap 8 L BUN 13 Creatinine 0.7 Est GFR ( Amer) > 60 Est GFR (Non-Af Amer) > 60 Random Glucose 125 H Calcium 8.0 L Phosphorus 2.4 L Magnesium 2.1 Total Bilirubin 0.3 AST 69 H D ALT 66 H Alkaline Phosphatase 60 Total Protein 5.7 L Albumin 3.2 L Globulin 2.5 Albumin/Globulin Ratio 1.3 Blood Type Antibody Screen 03/04/19 08:11 WBC RBC Hgb Hct MCV MCH MCHC RDW Plt Count MPV Neut % (Auto) Lymph % (Auto) [place] % (Auto) Eos % (Auto) Baso % (Auto) Neut # (Auto) Lymph # (Auto) [place] # (Auto) Eos # (Auto) Baso # (Auto) Neutrophils % (Manual) Lymphocytes % (Manual) Monocytes % (Manual) Platelet Estimate Large Platelets Polychromasia Hypochromasia (manual) Anisocytosis (manual) Puncture Site pCO2 pO2 HCO3 ABG pH ABG Total CO2 ABG O2 Saturation ABG Base Excess ABG Hemoglobin ABG Carboxyhemoglobin POC ABG HHb (Measured) ABG Methemoglobin Keo Test A-a O2 Difference Respiratory Index Hgb O2 Saturation Vent Mode Mechanical Rate FiO2 Tidal Volume PEEP Sodium Potassium Chloride Carbon Dioxide Anion Gap BUN Creatinine Est GFR ( Amer) Est GFR (Non-Af Amer) Random Glucose Calcium Phosphorus Magnesium Total Bilirubin AST ALT Alkaline Phosphatase Total Protein Albumin Globulin Albumin/Globulin Ratio Blood Type A NEGATIVE Antibody Screen Negative Radiology Impressions: Radiology Impressions Chest X-Ray 03/04/19 07:00 IMPRESSION: Interval mild improvement in the lungs. Appropriate position of the support devices. Attending/Attestation - Attestation I have personally seen and examined this patient.: Yes I have fully participated in the care of the patient.: Yes I have reviewed all pertinent clinical information: Yes Notes (Text): 03/03/19 The patient was Seen and examined by me at the bedside during ICU round, Medical records reviewed and Management issues were discussed and formulated with the house staff. I have reviewed all the relevant clinical, laboratory, hemodynamic, radiographic data and medications I concur with resident's assessment and plan of care
[2019-03-03] MEDS ORDERED: Magnesium Sulfate 1 gm in D5W 1 GM/100 ML BAG IVPB ONE ×2 (13:37→16:00)
--- NOTE | 2019-03-03 13:50 | CT ---
Date of service: 03/03/2019 PROCEDURE: CT Chest without contrast HISTORY: sob COMPARISON: Not available TECHNIQUE: Contiguous axial images were obtained through the chest without intravenous contrast enhancement. Sagittal and coronal reconstructions were performed. Radiation dose (DLP): 852.68 mGy-cm. This CT exam was performed using one or more of the following dose reduction techniques: Automated exposure control, adjustment of the mA and/or kV according to patient size, and/or use of iterative reconstruction technique. FINDINGS: LUNGS: Bilateral lower lobe dependent atelectasis. No pulmonary infiltrate. MEDIASTINUM: Unremarkable thoracic aorta. No aneurysm. Normal sized heart. Main pulmonary artery unremarkable. No vascular congestion. No lymphadenopathy. There is atherosclerotic calcification of the thoracic aorta. There is a small to moderate hiatal hernia. A nasogastric tube traverses the thoracic esophagus to the stomach. An endotracheal tube is noted with its tip approximately 2.2 cm above the tracheal rodrigo. PLEURA: Minimal bilateral pleural effusion. No pneumothorax. BONES: Mild wedge compression deformity of the L1 vertebral body of indeterminate age. No bony retropulsion or spinal stenosis. UPPER ABDOMEN: Cholecystectomy. Mild ascites. Inferior vena caval filter only partially included in this examination in the lower most cuts. OTHER FINDINGS: None. IMPRESSION: No pulmonary infiltrate. Mild bilateral lower lobe dependent atelectasis. Minimal bilateral pleural effusion. Hiatal hernia. NG tube. ET tube. Mild ascites. Cholecystectomy. Inferior vena caval filter.
--- NOTE | 2019-03-04 01:28 | CON ---
DATE: 03/03/2019 CARDIOLOGY CONSULTATION REASON FOR CONSULTATION: Unresponsiveness and respiratory failure. HISTORY OF PRESENT ILLNESS: The patient is a 63-year-old female who has a history of chronic spinal problem requiring surgery in the past, history of DVT, on Eliquis therapy. According to the patient's sister, many years ago, the patient was brought in because she was found unresponsive and foaming around the mouth. The patient required intubation, mechanical ventilation, and received Narcan in the field. According to the patient's sister, there was no known cardiac history and no known history of coronary intervention in the past. SOCIAL HISTORY: Nonsmoker. The patient lives with her mom. 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 MEDICATIONS: The patient is currently on Diprivan infusion, doxycycline 100 mg intravenously every 12 hours, albuterol inhaler every 6 hours, Eliquis 5 mg twice a day, Zosyn at 3.375 grams intravenously every 6 hours, Protonix 40 mg intravenously once a day, Solu-Cortef 100 mg intravenously every 12 hours, vancomycin 1 grams intravenously daily. The patient was on Levophed overnight, which was discontinued. The patient's home medications include torsemide, trazodone, oxycodone, Prilosec, gabapentin, and Eliquis. PHYSICAL EXAMINATION: GENERAL: The patient is a middle-aged female who is currently on a ventilator, but awake and cooperative. VITAL SIGNS: Blood pressure 142/72, heart rate 76, temperature 97.9, earlier temperature was 100.3. HEENT: Pale conjunctivae. CHEST: Diffuse bilateral rhonchi. HEART: S1 and S2 regular. ABDOMEN: Soft. EXTREMITIES: No edema. LABORATORY DATA: Today's hemoglobin and hematocrit 7.9 and 24.1. White count and platelet count are within normal limits. Yesterday's white count was 16.6. Today's SMA-7: Sodium 137, potassium 3.4, chloride 107, CO2 of 23, glucose 137, BUN 14, creatinine 0.8. Troponin was 0.322 and subsequent one was 0.237, and the last one was 0.11. PTT is 27. Urine drug screen is negative. Chest x-ray revealed cardiomegaly with moderate CHF. Admitting EKG revealed normal sinus rhythm at rate of 90. Head CT scan without contrast, limited study, generalized atrophy, nonspecific white matter changes. ASSESSMENT: 1. Respiratory failure. 2. Hypotension, rule out underlying sepsis. 3. Consider underlying congestive heart failure. 4. History of deep venous thrombosis, on Eliquis therapy. 5. Anemia. 6. Borderline troponin elevation, rule out [id number] myocardial infarction. However, pulmonary infarction is also a possibility. 7. Hypokalemia. RECOMMENDATIONS: Continue current doxycycline 100 mg intravenously every 12 hours, Eliquis 5 mg twice a day, Zosyn 3.375 grams intravenously every 6 hours, and vancomycin 1 gram intravenously daily. The patient did receive intravenous potassium chloride replacement today and is scheduled for a bedside echocardiograph study. We will also request a venous Doppler of the lower extremities, and if positive, I will proceed with a CT angio of the chest. The case was discussed with Dr. Rian Wilkes, the primary physician, and with the medical team in ICU. Nicholas Juarez MD
[2019-03-04] MEDS: Albuterol-Ipratrop 3 mg / 0.5 (3 ml) UD INH SCH ×4 (01:29→19:58)
[2019-03-04] MEDS: Propofol 10 mg/ml 1,000 MG/100 ML VIAL IV PRN (03:00)
[2019-03-04 05:50] LABS: ARTERIAL BLOOD GAS HCO3 26.3 mmol/L (21-28); ARTERIAL BLOOD GAS HEMOGLOBIN 7.2 g/dL (11.7-17.4); ARTERIAL BLOOD GAS O2 SAT 98.3 % (95-98); ARTERIAL BLOOD GAS PCO2 31 mm/Hg (35-45); ARTERIAL BLOOD GAS PH 7.51 (7.35-7.45); ARTERIAL BLOOD GAS PO2 125 mm/Hg (80-100); ARTERIAL BLOOD GAS TCO2 25.7 mmol/L (22-28)
[2019-03-04 06:38] LABS: BASO % 0.3 % (0.0-2.0); HEMOGLOBIN 7.2 g/dL (11.0-16.0); LYMPH # 0.8 K/uL (1.0-4.3); LYMPH % 7.6 % (20.0-40.0); MEAN CELL VOLUME 81.8 fL (81.0-99.0); MEAN CORPUSCULAR HEMOGLOBIN 26.3 pg (27.0-31.0); MEAN CORPUSCULAR HGB CONC 32.1 g/dL (33.0-37.0); MEAN PLATELET VOLUME 9.5 fL (7.2-11.7); MONO # 0.6 K/uL (0.0-0.8); MONO % 5.6 % (0.0-10.0); NEUT # 9.2 K/uL (1.8-7.0); NEUT % 86.5 % (50.0-75.0); PLATELET COUNT 269 K/uL (130-400); RBC 2.75 Mil/uL (3.80-5.20); RED CELL DISTRIBUTION WIDTH 15.4 % (11.5-14.5); WHITE BLOOD COUNT 10.7 K/uL (4.8-10.8)
[2019-03-04] MEDS: Piperacillin/Tazobact 3.375 GM in Sodium Chloride 100 ML IVPB SCH ×2 (06:50→10:57)
[2019-03-04 07:01] LABS: ALB/GLOB RATIO 1.3 (1.0-2.1); ALBUMIN 3.2 g/dL (3.5-5.0); ALT/SGPT 66 U/L (9-52); AST/SGOT 69 U/L (14-36); BLOOD UREA NITROGEN 13 mg/dL (7-17); GFR NON-AFRICAN AMERICAN > 60
[2019-03-04 09:16] LABS: LYMPHOCYTE 7 % (20-40); MONOCYTE 7 % (0-10); NEUTROPHIL 86 % (50-75); TOTAL CELLS COUNTED 100
[2019-03-04 09:17] LABS: ANISOCYTOSIS SLIGHT; PLATELET ESTIMATE NORMAL (NORMAL)
[2019-03-04 09:18] LABS: LARGE PLATELETS PRESENT; POLYCHROMIC SLIGHT
[2019-03-04 09:20] LABS: HYPOCHROMIC MODERATE
--- NOTE | 2019-03-04 09:59 | CP.PCM.PN ---
Subjective - Date & Time of Evaluation Date of Evaluation: 03/04/19 Time of Evaluation: 09:40 - Subjective Subjective: Patient remains intubated at this moment. Currently off of the propofol ggt. She is easily arousable to name and light stimuli She is able to look at me and follow me as I walk around the room Hopefully can be extubated today She had an echo yesterday. On telemetry she has been NSR overnight in the 70s Has been off of levophed for more than 24 hrs now. BP 130s systolic. Replaced K this morning, also type and screen since the Hgb is 7.1, checking occult stool Objective - Vital Signs/Intake and Output Vital Signs (last 24 hours): Temp Pulse Resp BP Pulse Ox 98.5 F 82 14 156/76 H 100 03/04/19 08:00 03/04/19 08:00 03/04/19 08:00 03/04/19 08:00 03/04/19 08:00 Intake and Output: 03/04/19 03/04/19 06:59 18:59 Intake Total 678.7 53.6 Output Total 700 130 Balance -21.3 -76.4 - Medications Medications: Current Medications Albuterol/Ipratropium (Duoneb 3 Mg/0.5 Mg (3 Ml) Ud) 3 ml INH RQ6 [facility] Last Admin: 03/04/19 08:10 Dose: 3 ml Apixaban (Eliquis) 5 mg PO BID [facility] Last Admin: 03/04/19 09:41 Dose: 5 mg Hydrocortisone Sodium Succinate (Solu-Cortef) 100 mg IV Q8 [facility] Last Admin: 03/04/19 05:00 Dose: 100 mg Norepinephrine Bitartrate 4 mg (/ Dextrose) 254 mls @ 15.24 mls/hr IV .[id number] PRN; Protocol PRN Reason: TITRATE PER MD ORDER Last Titration: 03/02/19 20:00 Dose: 0 mcg/min, 0 mls/hr Propofol (Diprivan) 1,000 mg in 100 mls @ 2.449 mls/hr IV .Q24H PRN; Protocol PRN Reason: TITRATE PER MD ORDER Last Titration: 03/04/19 09:08 Dose: 0 mcg/kg/min, 0 mls/hr Piperacillin Sod/Tazobactam (Sod 3.375 gm/ Sodium Chloride) 100 mls @ 200 mls/hr IVPB Q6H [facility]; Protocol Last Admin: 03/04/19 06:50 Dose: 200 mls/hr Doxycycline Hyclate 100 mg/ (Sodium Chloride) 100 mls @ 100 mls/hr IVPB Q12H [facility]; Protocol Last Admin: 03/04/19 05:00 Dose: 100 mls/hr Potassium Chloride (Potassium Chloride 20 Meq/100 Ml) 20 meq in 100 mls @ 50 mls/hr IVPB ONCE ONE Stop: 03/04/19 10:44 Last Admin: 03/04/19 08:48 Dose: 50 mls/hr Potassium Chloride (Potassium Chloride 20 Meq/100 Ml) 20 meq in 100 mls @ 50 mls/hr IVPB ONCE ONE Stop: 03/04/19 13:59 Pantoprazole Sodium (Protonix Inj) 40 mg IVP DAILY [facility] Last Admin: 03/04/19 09:41 Dose: 40 mg - Labs Labs: 03/04/19 06:31 03/04/19 06:31 APTT 27 SECONDS (21-34) 03/02/19 12:33 - Head Exam Head Exam: NORMAL INSPECTION, NORMOCEPHALIC - Eye Exam Eye Exam: EOMI Additional comments: She is following me with her eyes. Off of the propofol at this time - ENT Exam ENT Exam: Mucous Membranes Moist - Respiratory Exam Respiratory Exam: Decreased Breath Sounds Additional comments: Currently intubated - Cardiovascular Exam Cardiovascular Exam: REGULAR RHYTHM - GI/Abdominal Exam GI & Abdominal Exam: Soft, Normal Bowel Sounds - Neurological Exam Neurological Exam: Alert, Altered, Awake - Skin Skin Exam: Normal Color, Warm Assessment and Plan - Assessment and Plan (Free Text) Assessment: 63 year old female with pmhx of chronic back pain 2/2 scoliosis, depression, DVT admitted status post intubation in field after being found unresponsive Plan: AMS 03/04: Just had the propofol held this morning. Awake, responding to light stimuli, follows with her eyes. 03/03: The CT of the head returned and did not report hemmorage or acute findings. She has a history of being on Eliquis Currently remains intubated on propofol Borderline Elevated Troponins: 03/04: Echo done yesterday Sepsis, suspect from pnemonia 03/04: Afebrile, WBC decreased, 03/03: Tmax was recorded 100.3, on vancomycin, zosyn. Blood pressure now in the 130s to 140s systolic Was given hydrocortisone. Check echo CXR: RUL infiltrate Acute Respiratory Failure 03/04: This morning off of the propofol, hopefully can extubate soon. She had echo done yesterday. 03/03: Remains intubated at this time on PRVC settings, off of leveophed Borderline positive troponins, get echo and cardiology evaluation Hypotension 03/04 Now stable, has been off of pressor for more than 24 hrs 45: Now off of levophed, sytolic BPs in the 130s and 140s The lower numbers may have been from sepsis, pending blood cultures check echo
--- NOTE | 2019-03-04 14:44 | RAD ---
Date of service: 03/04/2019 PROCEDURE: CHEST RADIOGRAPH, 1 VIEW HISTORY: vent COMPARISON: Comparison is made to the previous same-day exam. FINDINGS: LUNGS: Interval mild improvement in the lungs since the previous exam. Left lower lung opacities are noted. The ET tube is seen at appropriate position. PLEURA: Blunting of the left costophrenic angle CARDIOVASCULAR: No aortic atherosclerotic calcification present. Normal. OSSEOUS STRUCTURES: No significant abnormalities. VISUALIZED UPPER ABDOMEN: NG tube seen extending to the abdomen . OTHER FINDINGS: None. IMPRESSION: Interval mild improvement in the lungs. Appropriate position of the support devices.
--- NOTE | 2019-03-04 16:15 | CARD ---
APPROVED REPORT Date of service: 03/03/2019 EXAM: Two-dimensional and M-mode echocardiogram with Doppler and color Doppler. Other Information Quality : GoodRhythm : INDICATION Dyspnea Respiratory Failure 2D DIMENSIONS IVSd0.9 (0.7-1.1cm)LVDd4.3 (3.9-5.9cm) PWd0.6 (0.7-1.1cm)LA [id number] (18-58mL) LVDs2.8 (2.5-4.0cm)FS (%) 34.7 % LVEF (%)64.2 (>50%)LVEF (Almaraz's)66.16 % M-Mode DIMENSIONS Left Atrium (MM)3.07 (2.5-4.0cm)IVSd0.81 (0.7-1.1cm) Aortic Root3.57 (2.2-3.7cm)LVDd4.86 (4.0-5.6cm) Aortic Cusp Exc.2.25 (1.5-2.0cm)PWd0.79 (0.7-1.1cm) FS (%) 38 %LVDs3.02 (2.0-3.8cm) LVEF (%)68 (>50%) Mitral Valve MV E Rxbxapeb92.5cm/sMV A Keozyjqs552.4cm/sE/A ratio0.9 TDI Lateral E' Peak V7.06cm/sMedial E' Peak V5.71cm/sE/Lateral E'12.5 E/Medial E'15.5 Tricuspid Valve TR Peak [id number]/sTR Peak Gr.[id number] LEFT VENTRICLE The left ventricle is normal size. There is normal left ventricular wall thickness. Left ventricle systolic function is The Ejection Fraction is 65-70%. There is normal LV segmental wall motion. Tissue Doppler imaging reveals abnormal left ventricular diastolic dysfunction. RIGHT VENTRICLE The right ventricle is normal size. There is normal right ventricular wall thickness. The right ventricular systolic function is normal. ATRIA The left atrium size is normal. The right atrium size is normal. The interatrial septum is intact with no evidence for an atrial septal defect. AORTIC VALVE The aortic valve is normal in structure. No aortic regurgitation is present. There is no aortic valvular stenosis. There is no aortic valvular vegetation. MITRAL VALVE The mitral valve is normal in structure. There is no evidence of mitral valve prolapse. There is no mitral valve stenosis. Mitral regurgitation is mild. TRICUSPID VALVE The tricuspid valve is normal in structure. There is mild tricuspid regurgitation. Right ventricular systolic pressure is estimated at less than 30 mmHg. There is no pulmonary hypertension. PULMONIC VALVE The pulmonic valve is not well visualized. There is no pulmonic valvular regurgitation. GREAT VESSELS The aortic root is normal in size. PERICARDIAL EFFUSION There is no significant pericardial effusion. <Conclusion> Left ventricle systolic function is The Ejection Fraction is 65-70%. Diastolic dysfunction. No aortic regurgitation is present. Mitral regurgitation is mild. There is mild tricuspid regurgitation. There is no pulmonary hypertension. There is no pulmonic valvular regurgitation.
--- NOTE | 2019-03-04 17:06 | CP.CCUPN ---
CCU Subjective - Physician Review Events Since Last Encounter (Free Text): 03/04/19 16:52 alert and following commands. CCU Objective - Vital Signs / Intake & Output Vital Signs (Last 4 hours): Vital Signs Pulse Resp BP Pulse Ox 03/04/19 15:00 83 17 137/71 100 03/04/19 14:00 86 22 142/73 100 03/04/19 13:00 80 20 150/77 100 Intake and Output (Last 8hrs): Intake & Output 03/04/19 03/04/19 03/04/19 06:59 14:59 22:59 Intake Total 567.0 358.6 Output Total 390 420 35 Balance 177.0 -61.4 -35 Weight 158 lb 11.725 oz Intake: IV 155 34 Intake, IV Amount 412.0 324.6 Right Medial Port Femoral 112.0 24.6 Right Proximal Port 300 300 Femoral Output: Urine 390 420 35 Urethral (Rendon) 390 420 35 - Physical Exam Head: Positive for: Atraumatic, Normocephalic Pupils: Positive for: PERRL Extroacular Muscles: Positive for: EOMI Conjunctiva: Positive for: Normal Mouth: Positive for: Moist Mucous Membranes Pharnyx: Positive for: Other (intubated) Respiratory/Chest: Positive for: Other (intubated). Negative for: Rales, Rhonchi Cardiovascular: Positive for: Regular Rate and Rhythm, Normal S1, S2 Abdomen: Positive for: Normal Bowel Sounds. Negative for: Distention Upper Extremity: Positive for: Normal Inspection. Negative for: Cyanosis, Edema Lower Extremity: Positive for: Normal Inspection, Other (right femoral TLC). Negative for: Edema Skin: Positive for: Warm, Dry Psychiatric: Positive for: Alert - Medications Active Medications: Active Medications Generic Name Dose Route Start Last Admin Trade Name Freq PRN Reason Stop Dose Admin Albuterol/Ipratropium 3 ml 03/02/19 20:00 03/04/19 13:31 Duoneb 3 Mg/0.5 Mg (3 Ml) Ud INH 3 ml RQ6 FRANCINE Administration Apixaban 5 mg 03/03/19 18:00 03/04/19 09:41 Eliquis PO 5 mg BID FRANCINE Administration Hydrocortisone Sodium Succinate 100 mg 03/02/19 14:45 03/04/19 14:01 Solu-Cortef IV 100 mg Q8 FRANCINE Administration Norepinephrine Bitartrate 4 mg 254 mls @ 15.24 mls/hr 03/02/19 11:55 03/02/19 20:00 / Dextrose IV 0 mcg/min .[id number] PRN 0 mls/hr TITRATE PER MD ORDER Titration Protocol 4 MCG/MIN Propofol 1,000 mg in 100 mls @ 2.449 mls/hr 03/02/19 13:08 03/04/19 09:08 Diprivan IV 0 mcg/kg/min .Q24H PRN 0 mls/hr TITRATE PER MD ORDER Titration Protocol 5 MCG/KG/MIN Piperacillin Sod/Tazobactam 100 mls @ 200 mls/hr 03/02/19 17:00 03/04/19 10:57 Sod 3.375 gm/ Sodium Chloride IVPB 200 mls/hr Q6H FRANCINE Administration Protocol Doxycycline Hyclate 100 mg/ 100 mls @ 100 mls/hr 03/02/19 16:00 03/04/19 05:00 Sodium Chloride IVPB 100 mls/hr Q12H FRANCINE Administration Protocol Pantoprazole Sodium 40 mg 03/02/19 16:30 03/04/19 09:41 Protonix Inj IVP 40 mg DAILY FRANCINE Administration - Patient Studies Lab Studies: Microbiology Studies 03/02/19 12:00 Blood Culture - Preliminary Blood NO GROWTH AFTER 48 HOURS 03/02/19 11:30 Blood Culture - Preliminary Blood NO GROWTH AFTER 48 HOURS 03/02/19 19:50 Gram Stain - Final Trachasp Sputum Culture - Final NORMAL ORAL BROOK 03/02/19 15:25 MRSA Culture (Admit) - Final Naris MRSA NOT DETECTED Lab Studies 03/04/19 03/04/19 03/04/19 Range/Units 08:11 06:31 06:31 WBC 10.7 (4.8-10.8) K/uL RBC 2.75 L (3.80-5.20) Mil/uL Hgb 7.2 L (11.0-16.0) g/dL Hct 22.5 L (34.0-47.0) % MCV 81.8 (81.0-99.0) fL MCH 26.3 L (27.0-31.0) pg MCHC 32.1 L (33.0-37.0) g/dL RDW 15.4 H (11.5-14.5) % Plt Count 269 (130-400) K/uL MPV 9.5 (7.2-11.7) fL Neut % (Auto) 86.5 H (50.0-75.0) % Lymph % (Auto) 7.6 L (20.0-40.0) % [place] % (Auto) 5.6 (0.0-10.0) % Eos % (Auto) 0.0 (0.0-4.0) % Baso % (Auto) 0.3 (0.0-2.0) % Neut # (Auto) 9.2 H (1.8-7.0) K/uL Lymph # (Auto) 0.8 L (1.0-4.3) K/uL [place] # (Auto) 0.6 (0.0-0.8) K/uL Eos # (Auto) 0.0 (0.0-0.7) K/uL Baso # (Auto) 0.0 (0.0-0.2) K/uL Neutrophils % (Manual) 86 H (50-75) % Lymphocytes % (Manual) 7 L (20-40) % Monocytes % (Manual) 7 (0-10) % Platelet Estimate Normal (NORMAL) Large Platelets Present Polychromasia Slight Hypochromasia (manual) Moderate Anisocytosis (manual) Slight Puncture Site pCO2 (35-45) mm/Hg pO2 (80-100) mm/Hg HCO3 (21-28) mmol/L ABG pH (7.35-7.45) ABG Total CO2 (22-28) mmol/L ABG O2 Saturation (95-98) % ABG Base Excess (-2.0-3.0) mmol/L ABG Hemoglobin (11.7-17.4) g/dL ABG Carboxyhemoglobin (0.5-1.5) % POC ABG HHb (Measured) (0.0-5.0) % ABG Methemoglobin (0.0-3.0) % Keo Test A-a O2 Difference mm/Hg Respiratory Index Hgb O2 Saturation (95.0-98.0) % Vent Mode Mechanical Rate FiO2 % Tidal Volume PEEP Sodium 139 (132-148) mmol/L Potassium 3.1 L (3.6-5.2) mmol/L Chloride 108 H (98-107) mmol/L Carbon Dioxide 26 (22-30) mmol/L Anion Gap 8 L (10-20) BUN 13 (7-17) mg/dL Creatinine 0.7 (0.7-1.2) mg/dL Est GFR ( Amer) > 60 Est GFR (Non-Af Amer) > 60 Random Glucose 125 H (65-105) mg/dL Calcium 8.0 L (8.6-10.4) mg/dl Phosphorus 2.4 L (2.5-4.5) mg/dL Magnesium 2.1 (1.6-2.3) mg/dL Total Bilirubin 0.3 (0.2-1.3) mg/dL AST 69 H D (14-36) U/L ALT 66 H (9-52) U/L Alkaline Phosphatase 60 (38-126) U/L Total Protein 5.7 L (6.3-8.3) g/dL Albumin 3.2 L (3.5-5.0) g/dL Globulin 2.5 (2.2-3.9) gm/dL Albumin/Globulin Ratio 1.3 (1.0-2.1) Blood Type A NEGATIVE Antibody Screen Negative 03/04/19 Range/Units 05:15 WBC (4.8-10.8) K/uL RBC (3.80-5.20) Mil/uL Hgb (11.0-16.0) g/dL Hct (34.0-47.0) % MCV (81.0-99.0) fL MCH (27.0-31.0) pg MCHC (33.0-37.0) g/dL RDW (11.5-14.5) % Plt Count (130-400) K/uL MPV (7.2-11.7) fL Neut % (Auto) (50.0-75.0) % Lymph % (Auto) (20.0-40.0) % [place] % (Auto) (0.0-10.0) % Eos % (Auto) (0.0-4.0) % Baso % (Auto) (0.0-2.0) % Neut # (Auto) (1.8-7.0) K/uL Lymph # (Auto) (1.0-4.3) K/uL [place]estone # (Auto) (0.0-0.8) K/uL Eos # (Auto) (0.0-0.7) K/uL Baso # (Auto) (0.0-0.2) K/uL Neutrophils % (Manual) (50-75) % Lymphocytes % (Manual) (20-40) % Monocytes % (Manual) (0-10) % Platelet Estimate (NORMAL) Large Platelets Polychromasia Hypochromasia (manual) Anisocytosis (manual) Puncture Site R brac pCO2 31 L (35-45) mm/Hg pO2 125 H (80-100) mm/Hg HCO3 26.3 (21-28) mmol/L ABG pH 7.51 H (7.35-7.45) ABG Total CO2 25.7 (22-28) mmol/L ABG O2 Saturation 98.3 H (95-98) % ABG Base Excess 1.7 (-2.0-3.0) mmol/L ABG Hemoglobin 7.2 L (11.7-17.4) g/dL ABG Carboxyhemoglobin 0.9 (0.5-1.5) % POC ABG HHb (Measured) 1.7 (0.0-5.0) % ABG Methemoglobin 0.2 (0.0-3.0) % Keo Test Na A-a O2 Difference 121.0 mm/Hg Respiratory Index 1.0 Hgb O2 Saturation 97.2 (95.0-98.0) % Vent Mode Prvc Mechanical Rate 16 FiO2 40.0 % Tidal Volume 500 PEEP 5 Sodium (132-148) mmol/L Potassium (3.6-5.2) mmol/L Chloride (98-107) mmol/L Carbon Dioxide (22-30) mmol/L Anion Gap (10-20) BUN (7-17) mg/dL Creatinine (0.7-1.2) mg/dL Est GFR ( Amer) Est GFR (Non-Af Amer) Random Glucose (65-105) mg/dL Calcium (8.6-10.4) mg/dl Phosphorus (2.5-4.5) mg/dL Magnesium (1.6-2.3) mg/dL Total Bilirubin (0.2-1.3) mg/dL AST (14-36) U/L ALT (9-52) U/L Alkaline Phosphatase (38-126) U/L Total Protein (6.3-8.3) g/dL Albumin (3.5-5.0) g/dL Globulin (2.2-3.9) gm/dL Albumin/Globulin Ratio (1.0-2.1) Blood Type Antibody Screen Laboratory Results - last 24 hr 03/04/19 03/04/19 03/04/19 05:15 06:31 06:31 WBC 10.7 RBC 2.75 L Hgb 7.2 L Hct 22.5 L MCV 81.8 MCH 26.3 L MCHC 32.1 L RDW 15.4 H Plt Count 269 MPV 9.5 Neut % (Auto) 86.5 H Lymph % (Auto) 7.6 L [place] % (Auto) 5.6 Eos % (Auto) 0.0 Baso % (Auto) 0.3 Neut # (Auto) 9.2 H Lymph # (Auto) 0.8 L [place] # (Auto) 0.6 Eos # (Auto) 0.0 Baso # (Auto) 0.0 Neutrophils % (Manual) 86 H Lymphocytes % (Manual) 7 L Monocytes % (Manual) 7 Platelet Estimate Normal Large Platelets Present Polychromasia Slight Hypochromasia (manual) Moderate Anisocytosis (manual) Slight Puncture Site R brac pCO2 31 L pO2 125 H HCO3 26.3 ABG pH 7.51 H ABG Total CO2 25.7 ABG O2 Saturation 98.3 H ABG Base Excess 1.7 ABG Hemoglobin 7.2 L ABG Carboxyhemoglobin 0.9 POC ABG HHb (Measured) 1.7 ABG Methemoglobin 0.2 Keo Test Na A-a O2 Difference 121.0 Respiratory Index 1.0 Hgb O2 Saturation 97.2 Vent Mode Prvc Mechanical Rate 16 FiO2 40.0 Tidal Volume 500 PEEP 5 Sodium 139 Potassium 3.1 L Chloride 108 H Carbon Dioxide 26 Anion Gap 8 L BUN 13 Creatinine 0.7 Est GFR ( Amer) > 60 Est GFR (Non-Af Amer) > 60 Random Glucose 125 H Calcium 8.0 L Phosphorus 2.4 L Magnesium 2.1 Total Bilirubin 0.3 AST 69 H D ALT 66 H Alkaline Phosphatase 60 Total Protein 5.7 L Albumin 3.2 L Globulin 2.5 Albumin/Globulin Ratio 1.3 Blood Type Antibody Screen 03/04/19 08:11 WBC RBC Hgb Hct MCV MCH MCHC RDW Plt Count MPV Neut % (Auto) Lymph % (Auto) Limestone % (Auto) Eos % (Auto) Baso % (Auto) Neut # (Auto) Lymph # (Auto) [place] # (Auto) Eos # (Auto) Baso # (Auto) Neutrophils % (Manual) Lymphocytes % (Manual) Monocytes % (Manual) Platelet Estimate Large Platelets Polychromasia Hypochromasia (manual) Anisocytosis (manual) Puncture Site pCO2 pO2 HCO3 ABG pH ABG Total CO2 ABG O2 Saturation ABG Base Excess ABG Hemoglobin ABG Carboxyhemoglobin POC ABG HHb (Measured) ABG Methemoglobin Keo Test A-a O2 Difference Respiratory Index Hgb O2 Saturation Vent Mode Mechanical Rate FiO2 Tidal Volume PEEP Sodium Potassium Chloride Carbon Dioxide Anion Gap BUN Creatinine Est GFR ( Amer) Est GFR (Non-Af Amer) Random Glucose Calcium Phosphorus Magnesium Total Bilirubin AST ALT Alkaline Phosphatase Total Protein Albumin Globulin Albumin/Globulin Ratio Blood Type A NEGATIVE Antibody Screen Negative Radiology Impressions: Radiology Impressions Chest X-Ray 03/04/19 07:00 IMPRESSION: Interval mild improvement in the lungs. Appropriate position of the support devices. Fingerstick Blood Sugar Results: 126 Review of Systems - Review of Systems Systems not reviewed;Unavailable: Intubated Assessment/Plan (1) Acute respiratory failure Assessment and plan: 63 year old female admitted s/p intubation for hypercapneic respiratory failure 2/2 AMS Plan: Neuro: alert and responsive Patient's presentation consistent with seizure like activity, ordering a bedside EEG, consulted Neurology. Pulm: extubating today CV: HD stable; VSS femoral line once placed Restart home eliquis; hx of DVTs f/u LE duplex B/L Echo ordered Cardio consult, Dr. Juarez GI: NPO, s/s eval tomorrow. : rendon I/Os ID: no acute issues, stopped all abx. Ppx: Eliquis Code status - full code Critical Care Time spent 35 minutes Multi-disciplinary rounds were performed with house staff, nursing, speech therapy, respiratory therapy, pharmacy and nutrition with integrated input from the primary team/attending and other consulting services. The documented time is cumulative and includes review of patient data/exams/labs/chart review and examination of the patient on rounds and throughout the day; time is exclusive of any procedures or teaching time. Current Visit: Yes Status: Acute
--- NOTE | 2019-03-04 18:25 | PN ---
DATE: 03/04/2019 SUBJECTIVE: The patient is still on the ventilator. No reported ventricular arrhythmia. PHYSICAL EXAMINATION: VITAL SIGNS: Blood pressure 150/77, heart rate 80, temperature 98.5. HEENT: Normocephalic. CHEST: Bilateral rhonchi. HEART: S1 and S2. Regular. EXTREMITIES: No edema. LABORATORY DATA: Today's SMA-7: Sodium 139, potassium 3.1, chloride 108, CO2 of 26, glucose 125, BUN 15, and creatinine 0.7. Today's hemoglobin and hematocrit 7.1 and 22.5. White count and platelet count are within normal limits. Venous Doppler of lower extremity was positive for left common femoral vein DVT. Chest CT scan without contrast, no pulmonary infiltrate, mild bilateral lower lobe dependent atelectasis. Minimal bilateral pleural effusion. Hiatus hernia. Today's chest x-ray revealed significant central and hilar congestion. ASSESSMENT: 1. Respiratory failure. 2. Borderline troponin elevation, rule out pulmonary infarction. 3. Left femoral vein deep venous thrombosis. 4. History of deep venous thrombosis in the past, status post inferior vena cava filter placement. 5. Worsening anemia. RECOMMENDATIONS: Continue current Eliquis 5 mg twice a day. Continue current potassium chloride replacement as well as intravenous Solu-Cortef. I will obtain a chest CT angio to rule out pulmonary embolus. Nicholas Juarez MD
[2019-03-05 06:18] LABS: BASO % 0.2 % (0.0-2.0); EOS % 0.2 % (0.0-4.0); LYMPH # 1.9 K/uL (1.0-4.3); MEAN CELL VOLUME 81.6 fL (81.0-99.0); MEAN CORPUSCULAR HEMOGLOBIN 25.6 pg (27.0-31.0); MEAN CORPUSCULAR HGB CONC 31.4 g/dL (33.0-37.0); MEAN PLATELET VOLUME 9.5 fL (7.2-11.7); MONO # 0.8 K/uL (0.0-0.8); MONO % 7.9 % (0.0-10.0); NEUT # 7.4 K/uL (1.8-7.0); NEUT % 72.7 % (50.0-75.0); RBC 2.73 Mil/uL (3.80-5.20); RED CELL DISTRIBUTION WIDTH 15.6 % (11.5-14.5); WHITE BLOOD COUNT 10.2 K/uL (4.8-10.8)
[2019-03-05 06:37] LABS: ALB/GLOB RATIO 1.1 (1.0-2.1); ALT/SGPT 60 U/L (9-52); AST/SGOT 44 U/L (14-36); BLOOD UREA NITROGEN 14 mg/dL (7-17); CALCIUM 8.4 mg/dl (8.6-10.4); GFR NON-AFRICAN AMERICAN > 60
[2019-03-05] MEDS: Albuterol-Ipratrop 3 mg / 0.5 (3 ml) UD INH SCH ×3 (08:00→19:48)
--- NOTE | 2019-03-05 08:57 | CP.PCM.PN ---
Subjective - Date & Time of Evaluation Date of Evaluation: 03/05/19 Time of Evaluation: 08:50 - Subjective Subjective: Patient was seen and examined by me. The patient was extubated yesterday 2:30 pm. She did ok overnight she reported she was not able to sleep. Denied chest pain, denied shortness of breath, denied head, denied dizziness. She has chronic back pain she says The patient says she does not remember the events leading up to her comming to the hospital. She was able to correctly tell me her date, address and is following all commands. It looks as if the patient has a + right facial droop. Also her speech seems almost slurred and broken (however I should point out that [place]bek is probably not her primary language) She was able to raise arms > 90 both sides for more than five seconds. Also able to move toes and raise both legs > 5 seconds. She already had a regular diet and was eating very well, no choking or vommitting. She had a CT on admission. Consider MRI however the patient says that she thinks she has metal rods in her back that are quite old. She isn't sure if she has had an MRI before. She is NSR in the 90s, on nasal cannula with pulse ox in the mid 95s. Objective - Vital Signs/Intake and Output Vital Signs (last 24 hours): Temp Pulse Resp BP Pulse Ox 98.3 F 82 20 136/76 94 L 03/05/19 08:00 03/05/19 08:00 03/05/19 08:00 03/05/19 08:00 03/05/19 08:00 Intake and Output: 03/05/19 03/05/19 06:59 18:59 Intake Total 470 0 Output Total 490 Balance -20 0 - Medications Medications: Current Medications Albuterol/Ipratropium (Duoneb 3 Mg/0.5 Mg (3 Ml) Ud) 3 ml INH RQ6 FRANCINE Last Admin: 03/04/19 19:58 Dose: 3 ml Apixaban (Eliquis) 5 mg PO BID [facility] Last Admin: 03/04/19 18:04 Dose: 5 mg Norepinephrine Bitartrate 4 mg (/ Dextrose) 254 mls @ 15.24 mls/hr IV .[id number] PRN; Protocol PRN Reason: TITRATE PER MD ORDER Last Titration: 03/02/19 20:00 Dose: 0 mcg/min, 0 mls/hr - Labs Labs: 03/05/19 06:13 03/05/19 06:13 APTT 27 SECONDS (21-34) 03/02/19 12:33 - Constitutional Appears: No Acute Distress, Unkempt - Head Exam Head Exam: NORMAL INSPECTION, NORMOCEPHALIC - Eye Exam Eye Exam: EOMI - ENT Exam ENT Exam: Mucous Membranes Moist - Respiratory Exam Respiratory Exam: Decreased Breath Sounds, Clear to Ausculation Bilateral, NORMAL BREATHING PATTERN - Cardiovascular Exam Cardiovascular Exam: REGULAR RHYTHM - GI/Abdominal Exam GI & Abdominal Exam: Soft, Normal Bowel Sounds. absent: Guarding, Rigid, Tenderness - Neurological Exam Neurological Exam: Alert, Awake, Oriented x3 Neuro motor strength exam: Left Upper Extremity: 5, Right Upper Extremity: 5, Left Lower Extremity: 5, Right Lower Extremity: 5 Additional comments: + R side facial droop, questionable slurred speech (she tolerated diet very well) - Psychiatric Exam Psychiatric exam: Normal Affect, Normal Mood - Skin Skin Exam: Normal Color, Warm Assessment and Plan - Assessment and Plan (Free Text) Assessment: 63 year old female with pmhx of chronic back pain 2/2 scoliosis, depression, DVT admitted status post intubation in field after being found unresponsive Plan: Acute Respiratory Failure 03/05: The patient extubated yesterday about 2:30, she says her breathing is ok. CXRAY shows some congestion. Will give lasix x 1 before transfusion today. 03/04: This morning off of the propofol, hopefully can extubate soon. She had echo done yesterday. 03/03: Remains intubated at this time on PRVC settings, off of leveophed Borderline positive troponins, get echo and cardiology evaluation AMS 03/05: Now extubated, AAO x 3, following commands - she has a R facial droop and possible slurred speech, would like to get MRI however she says she has old metal rods in her back. Otherwise muscle strength in extremities 04/02 03/04: Just had the propofol held this morning. Awake, responding to light stimuli, follows with her eyes. 03/03: The CT of the head returned and did not report hemorrhage or acute findings. She has a history of being on Eliquis Currently remains intubated on propofol Anemia 03/05: Hgb decreased to 7.0, will transfuse one unit. Also lasix since the chest XRAY does look congested. Borderline Elevated Troponins: 03/04: Echo done yesterday Sepsis, suspect from pnemonia 03/05: Again afebrile, WBC ok, cultures are negative so far. 03/04: Afebrile, WBC decreased, 03/03: Tmax was recorded 100.3, on vancomycin, zosyn. Blood pressure now in the 130s to 140s systolic Was given hydrocortisone. Check echo CXR: RUL infiltrate Hypotension 03/05: Again stable 03/04 Now stable, has been off of pressor for more than 24 hrs 03/03: Now off of levophed, sytolic BPs in the 130s and 140s The lower numbers may have been from sepsis, pending blood cultures check echo
--- NOTE | 2019-03-05 11:48 | RAD ---
Date of service: 03/05/2019 HISTORY: intubated COMPARISON: Comparison is made with 03/04/2019 TECHNIQUE: 1 view obtained. FINDINGS: LUNGS: The patient is status post extubation. Interval improvement in the left lung noted since the previous exam. PLEURA: No significant pleural effusion identified, no pneumothorax apparent. CARDIOVASCULAR: No aortic atherosclerotic calcification present. Normal cardiac size. No pulmonary vascular congestion. OSSEOUS STRUCTURES: No significant abnormalities. VISUALIZED UPPER ABDOMEN: Normal. OTHER FINDINGS: None. IMPRESSION: Status post extubation. Interval mild improvement in the left lung noted since the previous exam.
--- NOTE | 2019-03-05 16:19 | CP.PCM.CON ---
History of Present Illness - History of Present Illness History of Present Illness: Neurology consult dictated. IN brief, miss olson is a 63 yr old woman who is here for altered mental status and had foaming at the mouth before she was admitted. On further history the patient has no history of epilepsy, and has never been on epilepsy medications. PLan: 1. EEG 2. If EEg is normal, would not recommend anti epileptic medications. Thank you Dr. Rhoades Neurology. Past Patient History - Past Medical History & Family History Past Medical History?: Yes - Past Social History Smoking Status: Never Smoked - CARDIAC Hx Cardiac Disorders: No - PULMONARY Hx Respiratory Disorders: No - NEUROLOGICAL Hx Neurological Disorder: No - HEENT Hx HEENT Problems: No - RENAL Hx Chronic Kidney Disease: No - ENDOCRINE/METABOLIC Hx Endocrine Disorders: No - HEMATOLOGICAL/ONCOLOGICAL Hx Blood Disorders: No - INTEGUMENTARY Hx Dermatological Problems: No - MUSCULOSKELETAL/RHEUMATOLOGICAL Hx Musculoskeletal Disorders: Yes Hx Back Pain: Yes - GASTROINTESTINAL Hx Gastrointestinal Disorders: No - GENITOURINARY/GYNECOLOGICAL Hx Genitourinary Disorders: No - PSYCHIATRIC Hx Anxiety: Yes Hx Depression: Yes Hx Substance Use: No - SURGICAL HISTORY Hx Surgeries: Yes Hx Orthopedic Surgery: Yes (knee surgery) - ANESTHESIA Hx Anesthesia: Yes Hx Anesthesia Reactions: No Meds Allergies/Adverse Reactions: Allergies Allergy/AdvReac Type Severity Reaction Status Date / Time No Known Allergies Allergy Verified 03/09/17 19:20 - Medications Medications: Current Medications Albuterol/Ipratropium (Duoneb 3 Mg/0.5 Mg (3 Ml) Ud) 3 ml INH RQ6 [facility] Last Admin: 03/05/19 14:15 Dose: 3 ml Apixaban (Eliquis) 5 mg PO BID [facility] Last Admin: 03/05/19 09:50 Dose: 5 mg Potassium Chloride (Potassium Chloride 20 Meq/100 Ml) 20 meq in 100 mls @ 50 mls/hr IVPB ONCE ONE Stop: 03/05/19 16:59 Last Admin: 03/05/19 14:52 Dose: 50 mls/hr Results - Vital Signs Recent Vital Signs: Last Vital Signs Temp 98.8 F 03/05/19 13:56 Pulse 78 03/05/19 14:00 Resp 20 03/05/19 14:00 BP 154/94 H 03/05/19 13:56 Pulse Ox 100 03/05/19 14:00 - Labs Result Diagrams: 03/05/19 06:13 03/05/19 06:13 Labs: Laboratory Results - last 24 hr 03/04/19 03/04/19 03/05/19 08:11 20:17 06:13 WBC 10.2 RBC 2.73 L Hgb 7.0 L Hct 22.3 L MCV 81.6 MCH 25.6 L MCHC 31.4 L RDW 15.6 H Plt Count 264 MPV 9.5 Neut % (Auto) 72.7 Lymph % (Auto) 19.0 L Rains % (Auto) 7.9 Eos % (Auto) 0.2 Baso % (Auto) 0.2 Neut # (Auto) 7.4 H Lymph # (Auto) 1.9 Rains # (Auto) 0.8 Eos # (Auto) 0.0 Baso # (Auto) 0.0 Sodium Potassium Chloride Carbon Dioxide Anion Gap BUN Creatinine Est GFR ( Amer) Est GFR (Non-Af Amer) Random Glucose Calcium Phosphorus Magnesium Total Bilirubin AST ALT Alkaline Phosphatase Total Protein Albumin Globulin Albumin/Globulin Ratio Stool Occult Blood Negative Blood Type A NEGATIVE Antibody Screen Negative 03/05/19 06:13 WBC RBC Hgb Hct MCV MCH MCHC RDW Plt Count MPV Neut % (Auto) Lymph % (Auto) Rains % (Auto) Eos % (Auto) Baso % (Auto) Neut # (Auto) Lymph # (Auto) Rains # (Auto) Eos # (Auto) Baso # (Auto) Sodium 142 Potassium 3.1 L Chloride 111 H Carbon Dioxide 27 Anion Gap 6 L BUN 14 Creatinine 0.7 Est GFR ( Amer) > 60 Est GFR (Non-Af Amer) > 60 Random Glucose 87 D Calcium 8.4 L Phosphorus 2.1 L Magnesium 2.3 Total Bilirubin 0.4 AST 44 H D ALT 60 H Alkaline Phosphatase 53 Total Protein 5.8 L Albumin 3.0 L Globulin 2.7 Albumin/Globulin Ratio 1.1 Stool Occult Blood Blood Type Antibody Screen
--- NOTE | 2019-03-05 19:44 | CARD ---
APPROVED REPORT Date of service: 03/02/2019 EKG Measurement Heart [id number] CT [id number] <Conclusion> Normal sinus rhythm Normal ECG
--- NOTE | 2019-03-05 20:00 | PN ---
DATE: 03/05/2019 SUBJECTIVE: The patient is extubated. The patient told me that she does not recall what happened to her that made her unresponsive. The patient denies any prior similar episode. Denies any history of seizure disorder. She does have a drug abuse worker, but does not recall his name. However, she denies any history of coronary artery disease or coronary intervention in the past. When asked about history of pulmonary embolism, the patient denied any history of pulmonary embolism in the past, but is aware of her history of DVT. PHYSICAL EXAMINATION: VITAL SIGNS: Blood pressure 154/94, heart rate 81, temperature 98.8, respirations 20. HEENT: Pale conjunctivae. CHEST: Clear. HEART: S1, S2, regular. EXTREMITIES: 1+ pitting edema. LABORATORY DATA: Today's SMA-7: Sodium 142, potassium 3.1, chloride 111, CO2 of 27, glucose 87, BUN 14, creatinine 0.7. Today's hemoglobin and hematocrit are 7 and 22.3. White count and platelet count are within normal limits. Today's chest x-ray revealed cardiomegaly with severe CHF. ASSESSMENT: 1. Status post respiratory failure. 2. Borderline troponin elevation, rule out non-ST elevation myocardial infarction versus pulmonary infarction. 3. Left common femoral vein deep venous thrombosis. 4. Anemia requiring packed red blood cell transfusion today. RECOMMENDATIONS: Continue current Eliquis at 5 mg twice a day. Continue current intravenous potassium chloride replacement. I did order chest CT angiogram to rule out pulmonary embolism on a stat basis, but the test was not done and it seems that the order has been canceled. I do recommend obtaining chest CT angiogram to rule out pulmonary embolism to avoid doing unnecessary cardiac catheterization on Mrs. Meehan. Nicholas Juarez MD
[2019-03-06] MEDS: Albuterol-Ipratrop 3 mg / 0.5 (3 ml) UD INH SCH ×3 (02:38→13:47)
--- NOTE | 2019-03-06 08:15 | CP.PCM.PN ---
Subjective - Date & Time of Evaluation Date of Evaluation: 03/06/19 Time of Evaluation: 08:30 - Subjective Subjective: PGY1 Medicine Progress note for hospitalist Dr. Thompson. Patient seen and examined at bedside. Patient states she feels better and has no complaints. Patient denies headaches, vision changes, chest pain, SOB, abdominal pain, diarrhea, constipation. Upon questioning, patient does still does not recall events leading up to hospitalization. Objective - Vital Signs/Intake and Output Vital Signs (last 24 hours): Temp Pulse Resp BP Pulse Ox 98.6 F 75 16 141/65 100 03/05/19 20:00 03/05/19 20:00 03/05/19 20:00 03/05/19 15:59 03/05/19 20:00 Intake and Output: 03/06/19 03/06/19 06:59 18:59 Intake Total 0 Balance 0 - Medications Medications: Current Medications Albuterol/Ipratropium (Duoneb 3 Mg/0.5 Mg (3 Ml) Ud) 3 ml INH RQ6 [facility] Last Admin: 03/06/19 08:12 Dose: 3 ml Apixaban (Eliquis) 5 mg PO BID [facility] Last Admin: 03/05/19 17:36 Dose: 5 mg - Labs Labs: 03/05/19 06:13 03/05/19 06:13 APTT 27 SECONDS (21-34) 03/02/19 12:33 - Constitutional Appears: Non-toxic, No Acute Distress - Head Exam Head Exam: NORMAL INSPECTION, NORMOCEPHALIC - Eye Exam Eye Exam: Normal appearance - ENT Exam ENT Exam: Mucous Membranes Moist - Neck Exam Neck Exam: absent: Thyromegaly - Respiratory Exam Respiratory Exam: Clear to Ausculation Bilateral, NORMAL BREATHING PATTERN. absent: Rales, Rhonchi, Wheezes - Cardiovascular Exam Cardiovascular Exam: +S1, +S2. absent: Murmur - GI/Abdominal Exam GI & Abdominal Exam: Soft, Normal Bowel Sounds. absent: Guarding, Rigid, Tenderness - Extremities Exam Extremities Exam: Calf Tenderness, Full ROM. absent: Pedal Edema Additional comments: Left calf tenderness Shayy test positive on left - Neurological Exam Neurological Exam: Alert, Awake, Oriented x3 Additional comments: Right facial droop Normal sensory face & extremities Equal strength b/l LE & UE Normal finger to nose test Normal heel to rizo test - Psychiatric Exam Psychiatric exam: Normal Affect, Normal Mood - Skin Skin Exam: Intact, Normal Color, Warm Assessment and Plan - Assessment and Plan (Free Text) Assessment: 3 year old female with pmhx of chronic back pain 2/2 scoliosis, depression, DVT admitted status post intubation in field after being found unresponsive; currently extubated, has right sided facial droop Plan: Facial droop - per patient, new onset - F/u neuro recs - F/u MRI brain w/w/o contrast - pt currently on eliquis for chronic DVT - ECHO: Anemia - hgb 7s - history of chronic anemia, stool occult negative - s/p 1 transfusion, repeat hgb 9.5 - further workup outpatient Chronic DVT - Duplex: LE: 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 - c/w eliquis 5 mg BID - IVC filter intact per CT History of depression - c/w resperidone 1 mg daily Altered mental status - resolved - extubated on 03/05; was intubated on scene by EMS - CT: no reported hemorrhage or acute findings - F/u neuro recs - F/u EEG results Elevated troponins - resolved - downtrended to normal - max 0.3220 - Echo: EF 65-70%; dystolic dysfunction SIRS + - Resolved - initially elevated WBC, hypotensive, hypothermic - B/C X 4 days negative - U/C negative - WBC normalized, normotensive, normal temperature Hypotension - Resolved - required pressors, initially - currently off pressors PPx: - DVT: on eliquis 5mg BID - GI: not indicated
--- NOTE | 2019-03-06 08:49 | RAD ---
Date of service: 03/06/2019 HISTORY: intubated COMPARISON: Portable chest 03/05/2019. TECHNIQUE: 1 view obtained. FINDINGS: LUNGS: Clinical indication is intubated. There is no interval tube identified in this radiograph. Subtle, bilateral pulmonary fibrotic changes are reiterated without consolidation. PLEURA: No significant pleural effusion identified, no pneumothorax apparent. CARDIOVASCULAR: Calcific atherosclerotic changes are seen related to the thoracic aorta. Stable cardiac silhouette identified. No pulmonary vascular congestion. OSSEOUS STRUCTURES: No significant abnormalities. VISUALIZED UPPER ABDOMEN: Normal. OTHER FINDINGS: None. IMPRESSION: No acute infiltrate or definite pulmonary vascular congestion. Mild pulmonary fibrotic pattern is again evident with stable cardiac size. Patient appears to have been extubated.
--- NOTE | 2019-03-06 10:43 | VASCLAB ---
Date of service: 03/03/2019 PROCEDURE: Lower Extremity Venous Duplex Exam. HISTORY: Leg swelling PRIORS: None. TECHNIQUE: Bilateral common femoral, femoral, popliteal and posterior tibial, peroneal and great saphenous veins were evaluated. Flow was assessed with color Doppler, compressibility, assessment of phasic flow and augmentation response. Report prepared by Dhiraj Faye, CHARLIE, RVT FINDINGS: RIGHT: 1. Common Femoral Vein: 1.1. Compressibility - Fully compressible: Thrombus - None : Flow - Phasic: Augmentation -Normal: Reflux - None. 2. Femoral Vein: 2.1. Compressibility - Fully compressible: Thrombus - None : Flow - Phasic: Augmentation -Normal: Reflux - None. 3. Popliteal Vein: 3.1. Compressibility - Fully compressible: Thrombus - None : Flow - Phasic: Augmentation -Normal: Reflux - None. 4. Posterior Tibial Vein: 4.1. Compressibility - Fully compressible: Thrombus - None: Flow - Phasic: Augmentation -Normal: Reflux - None. 5. Peroneal Vein: 5.1. Compressibility - Fully compressible: Thrombus - None: Flow - Phasic: Augmentation -Normal: Reflux - None. 6. Great Saphenous Vein: 6.1. Compressibility - Fully compressible: Thrombus - None: Flow - Phasic: Augmentation - Normal: Reflux - None. LEFT: 1. Common Femoral Vein: 1.1. Compressibility - Partial: Thrombus - Chronic: Flow - Reduced : Augmentation -Reduced: Reflux - None. 2. Femoral Vein: 2.1. Compressibility - Fully compressible: Thrombus - None: Flow - Phasic: Augmentation -Normal: Reflux - None. 3. Popliteal Vein: 3.1. Compressibility - Fully compressible: Thrombus - None : Flow - Phasic: Augmentation -Normal: Reflux - None. 4. Posterior Tibial Vein: 4.1. Compressibility - Fully compressible: Thrombus - None: Flow - Phasic: Augmentation -Normal: Reflux - None. 5. Peroneal Vein: 5.1. Compressibility - Fully compressible: Thrombus - None: Flow - Phasic: Augmentation -Normal: Reflux - None. 6. Great Saphenous Vein: 6.1. Compressibility - Fully compressible: Thrombus - None: Flow - Phasic: Augmentation - Normal: Reflux - None. OTHER FINDINGS: CHERELLE Mabry notified about the findings. IMPRESSION: Right: No evidence of deep or superficial vein thrombosis of the right lower extremity. Normal valve function noted of the right side. Left: Chronic thrombosis of the left common femoral vein with mild reduction of the venous return.
[2019-03-06 11:26] LABS: BASO # 0.1 K/uL (0.0-0.2); BASO % 0.7 % (0.0-2.0); EOS # 0.6 K/uL (0.0-0.7); EOS % 7.2 % (0.0-4.0); LYMPH # 1.2 K/uL (1.0-4.3); LYMPH % 14.2 % (20.0-40.0); MEAN CELL VOLUME 82.3 fL (81.0-99.0); MEAN CORPUSCULAR HEMOGLOBIN 26.9 pg (27.0-31.0); MEAN CORPUSCULAR HGB CONC 32.7 g/dL (33.0-37.0); MEAN PLATELET VOLUME 8.6 fL (7.2-11.7); MONO # 0.6 K/uL (0.0-0.8); MONO % 7.3 % (0.0-10.0); NEUT # 5.8 K/uL (1.8-7.0); NEUT % 70.6 % (50.0-75.0); NRBC % 0.2 % (0.0-2.0); RBC 3.55 Mil/uL (3.80-5.20); RED CELL DISTRIBUTION WIDTH 15.6 % (11.5-14.5); WHITE BLOOD COUNT 8.3 K/uL (4.8-10.8)
[2019-03-06 11:29] LABS: HEMOGLOBIN 9.5 g/dL (11.0-16.0)
[2019-03-06 11:43] LABS: ALB/GLOB RATIO 1.2 (1.0-2.1); ALBUMIN 3.5 g/dL (3.5-5.0); ALT/SGPT 41 U/L (9-52); AST/SGOT 37 U/L (14-36); BLOOD UREA NITROGEN 11 mg/dL (7-17); CALCIUM 9.1 mg/dl (8.6-10.4); GFR NON-AFRICAN AMERICAN > 60
--- NOTE | 2019-03-06 14:01 | CP.PCM.PN ---
<Bozena Barba - Last Filed: 03/06/19 14:18> Subjective - Date & Time of Evaluation Date of Evaluation: 03/06/19 Time of Evaluation: 14:00 - Subjective Subjective: Neuro Follow-Up Note: Mrs. Meehan was evaluated this afternoon in the ICU. She is a med-surg pt. Today the pt states that she feels good; her only complaints is that she is hungry. She is eager to go home. Currently denies h/a, dizziness, visual changes, chest pain, palpitations, sob, cough, abd pain, n/v/d, paresthesias. Objective - Vital Signs/Intake and Output Vital Signs (last 24 hours): Temp Pulse Resp BP Pulse Ox 98.6 F 75 16 141/65 100 03/05/19 20:00 03/05/19 20:00 03/05/19 20:00 03/05/19 15:59 03/05/19 20:00 Intake and Output: 03/06/19 03/06/19 06:59 18:59 Intake Total 0 Balance 0 - Medications Medications: Current Medications Albuterol/Ipratropium (Duoneb 3 Mg/0.5 Mg (3 Ml) Ud) 3 ml INH RQ6 [facility] Last Admin: 03/06/19 13:47 Dose: 3 ml Apixaban (Eliquis) 5 mg PO BID [facility] Last Admin: 03/06/19 10:35 Dose: 5 mg - Labs Labs: 03/06/19 11:23 03/06/19 11:23 APTT 27 SECONDS (21-34) 03/02/19 12:33 - Constitutional Appears: Well, Non-toxic, No Acute Distress - Head Exam Head Exam: ATRAUMATIC, NORMAL INSPECTION, NORMOCEPHALIC - Eye Exam Eye Exam: EOMI, Normal appearance, PERRL Pupil Exam: NORMAL ACCOMODATION, PERRL - ENT Exam ENT Exam: Mucous Membranes Moist - Neck Exam Neck Exam: Full ROM, Normal Inspection - Respiratory Exam Respiratory Exam: NORMAL BREATHING PATTERN - Cardiovascular Exam Cardiovascular Exam: REGULAR RHYTHM - Extremities Exam Extremities Exam: Full ROM. absent: Calf Tenderness, Pedal Edema - Neurological Exam Neurological Exam: Alert, Awake, Oriented x3, Reflexes Normal. absent: CN II- XII Intact Neuro motor strength exam: Left Upper Extremity: 5, Right Upper Extremity: 5, Left Lower Extremity: 5, Right Lower Extremity: 5 Additional comments: Pt is AAOx3 Speech clear, fluid Slight facial asymmetry noticed; pt's mouth is drooping slightly. FROM to all extremities; no dysmetria No sensory deficits No tremors or abnormal movements Toes down going Able to elicit plantar response - Psychiatric Exam Psychiatric exam: Normal Affect, Normal Mood - Skin Skin Exam: Dry, Intact, Normal Color Assessment and Plan (1) Altered mental status Assessment & Plan: Imaging reviewed: -CT Head (03/02/19): Limited study. Generalized atrophy. Nonspecific white ma tter changes. -ECHO (03/03/19): EF 65-70% -EEG ordered to r/o seizures---will f/u with results. -MRI Brain with and without contrast to r/o stroke or other acute intracranial abnormalities -Continue current medications and treatment. -Continue PT -Notify neuro team of any acute changes in pt's condition. Bozena Barba, LEANN, SET PAINTER d/w Dr. May Status: Acute <Gregoria May - Last Filed: 03/07/19 14:59> Subjective - Subjective Subjective: In reference to the consult dictated by myself, please note that it should read: "Thank you for this INTERESTING Consultation'! DR. may Objective - Vital Signs/Intake and Output Vital Signs (last 24 hours): Temp Pulse Resp BP Pulse Ox 97.9 F 71 20 113/70 97 03/07/19 08:08 03/07/19 08:08 03/07/19 08:08 03/07/19 08:08 03/07/19 08:08 Intake and Output: 03/07/19 03/07/19 06:59 18:59 Intake Total 350 0 Output Total 250 Balance 100 0 - Medications Medications: Current Medications Albuterol/Ipratropium (Duoneb 3 Mg/0.5 Mg (3 Ml) Ud) 3 ml INH RQ6 [facility] Last Admin: 03/07/19 09:05 Dose: Not Given Apixaban (Eliquis) 5 mg PO BID [facility] Last Admin: 03/07/19 10:13 Dose: 5 mg Potassium Chloride (K-Dur 20 Meq Er Tab) 20 meq PO DAILY [facility] Last Admin: 03/07/19 10:12 Dose: 20 meq Risperidone (Risperdal Tab) 1 mg PO DAILY [facility] Last Admin: 03/07/19 10:12 Dose: 1 mg - Labs Labs: 03/07/19 07:23 03/07/19 07:23 APTT 27 SECONDS (21-34) 03/02/19 12:33
[2019-03-06] MEDS ORDERED: Potassium Chloride 20 mEq/15 ml LIQ UD PO ONE (14:04)
[2019-03-06] MEDS: Potassium Chloride 20 mEq ER Tab PO SCH (14:30)
--- NOTE | 2019-03-06 14:54 | CARD ---
APPROVED REPORT Date of service: 03/03/2019 EKG Measurement Heart [id number] <Conclusion> Normal sinus rhythm Normal ECG
[2019-03-06 18:19] VITALS: RESP 20
--- NOTE | 2019-03-06 19:25 | CON ---
DATE: 03/06/2019 NEUROLOGY CONSULTATION Neurologic consult called by . HISTORY OF PRESENT ILLNESS: Ms. Nhi Meehan is a 63-year-old woman with a past medical history of chronic secondary to scoliosis, depression, and lower extremity DVT. She as admitted after intubation on 01/30/2019 after being found by homemaker at home, unresponsive and foaming at the mouth. EMS was called. The patient was admitted, given a dose of Narcan protection, taken to the ICU and was doing well with no other seizures noted. Propofol was titrated down and she was extubated on Wednesday. Neurology consult was called yesterday for initial presentation of foaming at the mouth and possible seizure. On my exam, the patient was awake, oriented x3. She did not have a right-sided facial droop as other physicians had noted. She was speaking appropriately. She was not able to give me a history of epilepsy. REVIEW OF SYSTEMS: Negative for headache, nausea, vomiting, diarrhea or weakness. PAST MEDICAL HISTORY: As above. PAST SURGICAL HISTORY: As above. FAMILY HISTORY AND SOCIAL HISTORY: She lives with family. No tobacco, alcohol, or IVDA. ALLERGIES: NO KNOWN DRUG ALLERGIES. PHYSICAL EXAMINATION: GENERAL: On examination, she was alert and oriented x2. Date was questionable. Of note, the exam was conducted in Serbian. HEENT: Pupils were equal, round, and reactive to light. NEUROLOGIC: She could name and repeat. Mini-mental was 25/30. She had difficulty with following 2-step commands. She had good strength bilaterally; 5/5. There was no facial droop that I could appreciate. Since she was not gait was not tested. Reflexes are +2 in upper and lower limbs bilaterally. LABORATORY DATA: White count 10.2, hemoglobin 7, hematocrit 22.3. Chemistry: Sodium 139, potassium 3.3. AST and ALT were 37 and 41, trending downwards from 108 to 75. Urine was normal. Stool occult was negative. CAT scan of the head was within normal limits that was taken initially on 03/02/2019. IMPRESSION: This is a 62-year-old woman with possible seizure at onset of presentation. It is quite possible she may have had a small missing. PLAN: Recommend MRI of the brain to rule out stroke. If the MRI is negative then we would obtain EEG, although obtaining EEG right away might be beneficial. No at this time. Thank you for this insulting consult. Gregoria Rhoades MD
--- NOTE | 2019-03-06 20:07 | PN ---
DATE: 03/06/2019 SUBJECTIVE: The patient denied any chest pain, headache, or dizziness. PHYSICAL EXAMINATION: VITAL SIGNS: Blood pressure 141/65, heart rate 75, temperature 98.6, respirations 16. HEENT: Pale conjunctivae. CHEST: Diminished breath sounds over the bases. HEART: S1, S2. Regular. EXTREMITIES: Trace edema. LABORATORY DATA: Today's hemoglobin and hematocrit are 9.5 and 29.2. White count and platelet count are within normal limits. Today's SMA-7: Sodium 139, potassium 3.3, chloride 104, CO2 of 26, glucose 110, BUN 11, creatinine 0.6. I did review Neurology evaluation and the plan was to perform EEG, which was done today. Today chest x-ray revealed cardiomegaly with bilateral alveolar infiltrate, more prominent in the right lower lobe. Blood culture is negative after 3 days. ASSESSMENT: 1. Status post respiratory failure. 2. Altered mental status. 3. Borderline troponin elevation. 4. Left common femoral deep venous thrombosis. 5. Anemia requiring packed red blood cell transfusion. 6. Hypokalemia. RECOMMENDATIONS: Continue Eliquis 5 mg twice a day. The patient will receive 20 mEq of K-Dur today and daily. I will follow EEG and still recommend chest CT angio to rule out pulmonary embolism which I did order, but the order was canceled earlier. Nicholas Juarez MD
[2019-03-06] MEDS ORDERED: guaiFENesin 100 mg/5 ml Syrup UD PO ONE (22:52)
[2019-03-07] MEDS: Albuterol-Ipratrop 3 mg / 0.5 (3 ml) UD INH SCH ×3 (01:41→20:11)
--- NOTE | 2019-03-07 07:16 | CP.PCM.PN ---
<Alexis Perea M - Last Filed: 03/07/19 21:53> Subjective - Date & Time of Evaluation Date of Evaluation: 03/07/19 Time of Evaluation: 07:00 - Subjective Subjective: Medicine progress note for Hospitalist Dr. Thompson. Patient seen and examined at bedside. Patient states she feels fine and offers no complaints. Patient eager to go home and does not wish to attend TCU per PT recs. Patient remains to have facial droop. Patient denies chest pain, SOB, headaches, abdominal pain, fevers, chills, nausea, vomiting. Objective - Vital Signs/Intake and Output Vital Signs (last 24 hours): Temp Pulse Resp BP Pulse Ox 98.5 F 72 20 144/82 100 03/07/19 00:00 03/07/19 00:00 03/07/19 00:00 03/07/19 00:00 03/07/19 00:00 Intake and Output: 03/07/19 03/07/19 06:59 18:59 Intake Total 350 Output Total 250 Balance 100 - Medications Medications: Current Medications Albuterol/Ipratropium (Duoneb 3 Mg/0.5 Mg (3 Ml) Ud) 3 ml INH RQ6 [facility] Last Admin: 03/07/19 01:41 Dose: 3 ml Apixaban (Eliquis) 5 mg PO BID [facility] Last Admin: 03/06/19 17:54 Dose: 5 mg Potassium Chloride (K-Dur 20 Meq Er Tab) 20 meq PO DAILY [facility] Last Admin: 03/06/19 14:30 Dose: 20 meq Risperidone (Risperdal Tab) 1 mg PO DAILY [facility] - Labs Labs: 03/06/19 11:23 03/06/19 11:23 APTT 27 SECONDS (21-34) 03/02/19 12:33 - Constitutional Appears: Non-toxic, No Acute Distress - Head Exam Head Exam: NORMAL INSPECTION - Eye Exam Eye Exam: Normal appearance - ENT Exam ENT Exam: Mucous Membranes Moist - Respiratory Exam Respiratory Exam: Clear to Ausculation Bilateral, NORMAL BREATHING PATTERN. absent: Rales, Rhonchi, Wheezes - Cardiovascular Exam Cardiovascular Exam: +S1, +S2 - GI/Abdominal Exam GI & Abdominal Exam: Soft, Normal Bowel Sounds. absent: Firm, Guarding, Rigid - Extremities Exam Extremities Exam: Full ROM, Normal Inspection. absent: Pedal Edema, Tenderness - Back Exam Back Exam: absent: CVA tenderness (L), CVA tenderness (R) - Neurological Exam Neurological Exam: Alert, Awake, Oriented x3 Additional comments: facial droop present normal vascular surgeon strength normal motor strength Assessment and Plan - Assessment and Plan (Free Text) Assessment: 63 year old female with pmhx of chronic back pain 2/2 scoliosis, depression, DVT admitted status post intubation in field after being found unresponsive; currently extubated, has right sided facial droop, awaiting EEG report & CT head: Plan: Facial droop - per patient, new onset - F/u neuro recs - unable to MRI due to lumbar metal stimulator - F/u CT head - F/u EEG report - pt currently on eliquis for chronic DVT - ECHO: 65-70% EF, diaystolic dysfunction Chronic DVT - Duplex: LE: 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 - c/w eliquis 5 mg BID - IVC filter intact per CT Anemia - Resolvted - hgb 7s during stay - history of chronic anemia, stool occult negative - s/p 1 transfusion, repeat hgb 10s - further workup outpatient History of depression - c/w resperidone 1 mg daily Altered mental status - resolved - extubated on 03/05; was intubated on scene by EMS - CT: no reported hemorrhage or acute findings - F/u neuro recs - F/u EEG results Elevated troponins - resolved - downtrended to normal - max 0.3220 - Echo: EF 65-70%; dystolic dysfunction SIRS + - Resolved - initially elevated WBC, hypotensive, hypothermic - B/C X 4 days negative - U/C negative - WBC normalized, normotensive, normal temperature Hypotension - Resolved - required pressors, initially - currently off pressors PPx: - DVT: on eliquis 5mg BID - GI: not indicated - PT recs: TCU placement Dispo: Patient stable for discharge pending repeat CT head and EEG. Patient is recommended for TCU; however, does not wish TCU. Will possibly make arrangements for home w/ PT. <Silvia Thompson - Last Filed: 03/09/19 15:25> Objective - Vital Signs/Intake and Output Vital Signs (last 24 hours): Temp Pulse Resp BP Pulse Ox 97.9 F 70 20 111/73 98 03/08/19 07:00 03/08/19 07:00 03/08/19 07:00 03/08/19 07:00 03/08/19 07:00 - Labs Labs: 03/08/19 06:31 03/08/19 06:31 APTT 27 SECONDS (21-34) 03/02/19 12:33 Attending/Attestation - Attestation I have personally seen and examined this patient.: Yes I have fully participated in the care of the patient.: Yes I have reviewed all pertinent clinical information, including history, physical exam and plan: Yes Notes (Text): Seen and examined with the resident. patient has no complain,She wants to go home,not to rehab. Her sister helps her and her mother. assessment and the plan discussed with the resident I agree with the documentation we will follow Repeat CT brain,follow EEG
[2019-03-07 07:29] LABS: BASO # 0.1 K/uL (0.0-0.2); BASO % 0.7 % (0.0-2.0); EOS # 0.5 K/uL (0.0-0.7); EOS % 6.1 % (0.0-4.0); LYMPH # 1.5 K/uL (1.0-4.3); LYMPH % 17.5 % (20.0-40.0); MEAN CELL VOLUME 82.6 fL (81.0-99.0); MEAN CORPUSCULAR HEMOGLOBIN 26.7 pg (27.0-31.0); MEAN CORPUSCULAR HGB CONC 32.4 g/dL (33.0-37.0); MEAN PLATELET VOLUME 8.9 fL (7.2-11.7); MONO # 0.7 K/uL (0.0-0.8); MONO % 7.9 % (0.0-10.0); NEUT % 67.8 % (50.0-75.0); NRBC % 0.1 % (0.0-2.0); RBC 3.76 Mil/uL (3.80-5.20); RED CELL DISTRIBUTION WIDTH 16.1 % (11.5-14.5); WHITE BLOOD COUNT 8.9 K/uL (4.8-10.8)
[2019-03-07 07:58] LABS: ALB/GLOB RATIO 1.2 (1.0-2.1); ALBUMIN 3.5 g/dL (3.5-5.0); ALT/SGPT 41 U/L (9-52); AST/SGOT 33 U/L (14-36); BLOOD UREA NITROGEN 10 mg/dL (7-17); CALCIUM 8.7 mg/dl (8.6-10.4); GFR NON-AFRICAN AMERICAN > 60
[2019-03-07] MEDS: Potassium Chloride 20 mEq ER Tab PO SCH (10:12)
--- NOTE | 2019-03-07 13:38 | CT ---
Date of service: 03/07/2019 PROCEDURE: CT HEAD WITHOUT CONTRAST. HISTORY: re-eval for acute intracranial abnormalities COMPARISON: 03/02/2019 TECHNIQUE: Axial computed tomography images were obtained through the head/brain without intravenous contrast. Radiation dose: Total exam DLP = 973.79 mGy-cm. This CT exam was performed using one or more of the following dose reduction techniques: Automated exposure control, adjustment of the mA and/or kV according to patient size, and/or use of iterative reconstruction technique. FINDINGS: HEMORRHAGE: No intracranial hemorrhage. BRAIN: No mass effect or edema. Cerebral atrophy similar. The minimal previously referenced subcortical and deep white matter changes-nonspecific are less conspicuous on this exam. VENTRICLES: Unremarkable. No hydrocephalus. CALVARIUM: Unremarkable. PARANASAL SINUSES: Unremarkable as visualized. No significant inflammatory changes. MASTOID AIR CELLS: Unremarkable as visualized. No inflammatory changes. OTHER FINDINGS: None. IMPRESSION: No interval hemorrhage or mass effect. Cerebral atrophy and possible trace deep white matter chronic microvascular ischemic changes. No interval suspect pathology noted.
--- NOTE | 2019-03-07 14:54 | PCM.EEG ---
Electroencephalogram Report - Electroencephalogram Report Procedure Date: 03/07/19 Condition of Recording: Awake, Asleep Interpretation: This EEG was acquired using the 10/20 international electrode system, with all channels referenced to A1 A2 and P1P2 respectively. Clif detection software was used and reviewed in its entirety Impression: With eyes closed, the patient has a 10 hz posterior dominant rhythm that is reactive, symmetric and attenuates to eye opening. There is a normal amount of frontal beta noted. Drowsiness and sleep were captured. Sleep was characterized by bilaterally symmetric 12 hz spindles, K complexes, and stage 1 predominant more than stage 2 sleep. There were no interictal discharges or seizures noted, no push buttons. Impression: This is a normal awake and sleep EEG. Clinical correlation is required. Dr. Gregoria Rhoades System Director [facility]
[2019-03-07] MEDS ORDERED: Iodixanol 320 MG/ML 100 ML BOTTLE IV ONE (18:28)
--- NOTE | 2019-03-07 19:12 | CT ---
Date of service: 03/07/2019 CTA chest PE protocol Indication: r/o PE Technique: Contiguous axial images were obtained through the chest with intravenous contrast enhancement. Sagittal and coronal reconstructions were generated and reviewed. This CT exam was performed using 1 or more of the following dose reduction techniques: Automated exposure control, adjustment of the MAA and/or kV according to patient size, and/or use of iterative reconstruction technique. IV contrast: 100 mL Visipaque 320 IV Radiation dose (DLP): 515.54 MGy-cm. Comparison: Chest x-ray performed 03/06/19, CT chest without IV contrast performed 03/03/19 Findings: Visualized portions of the inferior thyroid gland appear unremarkable. The mediastinal and hilar vascular structures appear within normal limits. The heart appears within normal limits of size. No large central or segmental pulmonary embolus evident. No focal consolidation. Small bilateral pleural effusions. No pneumothorax. Moderate to large hiatal hernia. Limited visualized portions of the upper abdomen: Cholecystectomy. IVC filter. Kyphosis. Loss of T12 vertebral body height re-identified. Osseous demineralization. Degenerative changes. Partially imaged lumbar fusion hardware on bushing and broach operator view. Impression: No large central or segmental pulmonary embolus evident. Small bilateral pleural effusions. Moderate to large hiatal hernia. Cholecystectomy. Re-identified loss of T12 vertebral body height, age indeterminate compression fracture deformity. Additional findings as above.
--- NOTE | 2019-03-07 20:22 | PN ---
DATE: 03/07/2019 SUBJECTIVE: The patient denies any chest pain. PHYSICAL EXAMINATION: VITAL SIGNS: Blood pressure 115/70, heart rate 71, temperature 97.9, respirations 20. HEENT: Pale conjunctivae. CHEST: Clear. HEART: S1 and S2 regular. EXTREMITIES: Trace leg edema. LABORATORY DATA: Today's hemoglobin and hematocrit 10 and 31. White count and platelet count are within normal limits. Today's SMA-7 is within normal limits except for creatinine of 0.6. Repeat head CT scan done today revealed no interval hemorrhage or mass effect. Cerebral atrophy and possible trace deep white matter chronic microvascular ischemic changes. Yesterday's x-ray revealed mild pulmonary fibrotic pattern and cardiomegaly. ASSESSMENT: 1. Status post respiratory failure. 2. Borderline troponin elevation. 3. Left common femoral vein deep vein thrombosis, which according to the official report is a chronic thrombosis with mild reduction in the venous return. RECOMMENDATIONS: Continue Eliquis 5 mg once a day, K-Dur 20 mEq once a day. I will order a chest CT angio to rule out pulmonary embolism. Nicholas Juarez MD
[2019-03-08] MEDS ORDERED: Albuterol-Ipratrop 3 mg / 0.5 (3 ml) UD INH PRN (00:26)
[2019-03-08 06:51] LABS: ALB/GLOB RATIO 1.3 (1.0-2.1); ALBUMIN 3.8 g/dL (3.5-5.0); ALT/SGPT 34 U/L (9-52); AST/SGOT 33 U/L (14-36); BLOOD UREA NITROGEN 11 mg/dL (7-17); CALCIUM 8.9 mg/dl (8.6-10.4); GFR NON-AFRICAN AMERICAN > 60
[2019-03-08 07:08] LABS: BASO % 0.4 % (0.0-2.0); EOS # 0.5 K/uL (0.0-0.7); EOS % 5.6 % (0.0-4.0); HEMOGLOBIN 10.2 g/dL (11.0-16.0); LYMPH # 1.7 K/uL (1.0-4.3); LYMPH % 19.2 % (20.0-40.0); MEAN CELL VOLUME 82.8 fL (81.0-99.0); MEAN CORPUSCULAR HEMOGLOBIN 27.2 pg (27.0-31.0); MEAN CORPUSCULAR HGB CONC 32.8 g/dL (33.0-37.0); MEAN PLATELET VOLUME 9.6 fL (7.2-11.7); MONO # 0.7 K/uL (0.0-0.8); MONO % 7.8 % (0.0-10.0); NEUT # 5.9 K/uL (1.8-7.0); RBC 3.74 Mil/uL (3.80-5.20); RED CELL DISTRIBUTION WIDTH 15.8 % (11.5-14.5); WHITE BLOOD COUNT 8.7 K/uL (4.8-10.8)
--- NOTE | 2019-03-08 07:26 | CP.PCM.PN ---
Objective - Vital Signs/Intake and Output Vital Signs (last 24 hours): Temp Pulse Resp BP Pulse Ox 98.5 F 78 20 122/71 96 03/08/19 00:00 03/08/19 00:00 03/08/19 00:00 03/08/19 00:00 03/08/19 00:00 Intake and Output: 03/08/19 03/08/19 06:59 18:59 Intake Total 420 Output Total 3 Balance 417 - Medications Medications: Current Medications Albuterol/Ipratropium (Duoneb 3 Mg/0.5 Mg (3 Ml) Ud) 3 ml INH RQ6 PRN PRN Reason: Shortness of Breath Apixaban (Eliquis) 5 mg PO BID [facility] Last Admin: 03/07/19 17:32 Dose: 5 mg Potassium Chloride (K-Dur 20 Meq Er Tab) 20 meq PO DAILY [facility] Last Admin: 03/07/19 10:12 Dose: 20 meq Risperidone (Risperdal Tab) 1 mg PO DAILY [facility] Last Admin: 03/07/19 10:12 Dose: 1 mg - Labs Labs: 03/08/19 06:31 03/08/19 06:31 APTT 27 SECONDS (21-34) 03/02/19 12:33
[2019-03-08 07:46] VITALS: BP 111/73; PULSE 70; TEMP 97.9; O2SAT 98
[2019-03-08] MEDS: Potassium Chloride 20 mEq ER Tab PO SCH (10:21)
--- NOTE | 2019-03-08 13:24 | CP.PCM.DIS ---
<Alexis Perea - Last Filed: 03/08/19 14:49> Provider - Provider Date of Admission: 03/02/19 12:15 Attending physician: Silvia Thompson MD Primary care physician: Dr. Moran Consults: 03/02/19 12:45 Critical Care Consult Routine Comment: Consulting Provider: Tirso Reis Consulting Physician: Tirso Reis Reason for Consult: intubated/hypotension 03/03/19 07:56 Cardiology Consult Routine Comment: Consulting Provider: Nicholas Juarez Consulting Physician: Nicholas Juarez Reason for Consult: Respiratory failure, borderline elevated troponins, sepsis 03/05/19 08:00 Neurology Consult Routine Comment: r/o seizure Consulting Provider: Gregoria Rhoades Consulting Physician: Gregoria Rhoades Reason for Consult: r/o seizure Time Spent in preparation of Discharge (in minutes): 40 Diagnosis - Discharge Diagnosis (1) Acute respiratory failure Status: Acute Comment: Initially intubated, patient improved, extubated, able to maintain airway protection. (2) Facial droop Status: Acute Comment: MRI negative for CVA. EEG negative for stroke. Good motor strength. Further work out possibly as outpatient. (3) DVT (deep venous thrombosis) Status: Acute Comment: Chronic, managed with [place] Hospital Course - Lab Results Lab Results: Micro Results 03/02/19 12:00 Blood Blood Culture - Final NO GROWTH AFTER 5 DAYS 03/02/19 12:00 Blood Gram Stain - Final TEST NOT PERFORMED 03/02/19 11:30 Blood Blood Culture - Final NO GROWTH AFTER 5 DAYS 03/02/19 11:30 Blood Gram Stain - Final TEST NOT PERFORMED 03/02/19 19:50 Trachasp Gram Stain - Final 03/02/19 19:50 Trachasp Sputum Culture - Final NORMAL ORAL BROOK 03/02/19 15:25 Naris MRSA Culture (Admit) - Final MRSA NOT DETECTED 03/02/19 15:25 Urine,Catheterized Urine Culture - Final No Growth (<1,000 CFU/ML) Most Recent Lab Values WBC 8.7 K/uL (4.8-10.8) 03/08/19 06:31 RBC 3.74 Mil/uL (3.80-5.20) L 03/08/19 06:31 Hgb 10.2 g/dL (11.0-16.0) L 03/08/19 06:31 Hct 31.0 % (34.0-47.0) L 03/08/19 06:31 MCV 82.8 fL (81.0-99.0) 03/08/19 06:31 MCH 27.2 pg (27.0-31.0) 03/08/19 06:31 MCHC 32.8 g/dL (33.0-37.0) L 03/08/19 06:31 RDW 15.8 % (11.5-14.5) H 03/08/19 06:31 Plt Count 312 K/uL (130-400) 03/08/19 06:31 MPV 9.6 fL (7.2-11.7) 03/08/19 06:31 Neut % (Auto) 67.0 % (50.0-75.0) 03/08/19 06:31 Lymph % (Auto) 19.2 % (20.0-40.0) L 03/08/19 06:31 [place] % (Auto) 7.8 % (0.0-10.0) 03/08/19 06:31 Eos % (Auto) 5.6 % (0.0-4.0) H 03/08/19 06:31 Baso % (Auto) 0.4 % (0.0-2.0) 03/08/19 06:31 Neut # (Auto) 5.9 K/uL (1.8-7.0) 03/08/19 06:31 Lymph # (Auto) 1.7 K/uL (1.0-4.3) 03/08/19 06:31 [place] # (Auto) 0.7 K/uL (0.0-0.8) 03/08/19 06:31 Eos # (Auto) 0.5 K/uL (0.0-0.7) 03/08/19 06:31 Baso # (Auto) 0.0 K/uL (0.0-0.2) 03/08/19 06:31 Neutrophils % (Manual) 86 % (50-75) H 03/04/19 06:31 Lymphocytes % (Manual) 7 % (20-40) L 03/04/19 06:31 Monocytes % (Manual) 7 % (0-10) 03/04/19 06:31 Nucleated RBC % 1 % (0-0) H 03/02/19 11:33 Platelet Estimate Normal (NORMAL) 03/04/19 06:31 Large Platelets Present 03/04/19 06:31 Polychromasia Slight 03/04/19 06:31 Hypochromasia (manual) Moderate 03/04/19 06:31 Poikilocytosis (manual Slight 03/03/19 05:25 Anisocytosis (manual) Slight 03/04/19 06:31 Target Cells Slight 03/03/19 05:25 APTT 27 SECONDS (21-34) 03/02/19 12:33 Puncture Site R brac 03/04/19 05:15 pCO2 31 mm/Hg (35-45) L 03/04/19 05:15 pO2 125 mm/Hg (80-100) H 03/04/19 05:15 HCO3 26.3 mmol/L (21-28) 03/04/19 05:15 ABG pH 7.51 (7.35-7.45) H 03/04/19 05:15 ABG Total CO2 25.7 mmol/L (22-28) 03/04/19 05:15 ABG O2 Saturation 98.3 % (95-98) H 03/04/19 05:15 ABG Base Excess 1.7 mmol/L (-2.0-3.0) 03/04/19 05:15 ABG Hemoglobin 7.2 g/dL (11.7-17.4) L 03/04/19 05:15 ABG Carboxyhemoglobin 0.9 % (0.5-1.5) 03/04/19 05:15 POC ABG HHb (Measured) 1.7 % (0.0-5.0) 03/04/19 05:15 ABG Methemoglobin 0.2 % (0.0-3.0) 03/04/19 05:15 Keo Test Na 03/04/19 05:15 ABG Potassium 3.3 mmol/L (3.6-5.2) L 03/03/19 05:29 VBG pH 7.07 (7.32-7.43) L* 03/02/19 12:32 VBG pCO2 90 mmHg (40-60) H* 03/02/19 12:32 VBG HCO3 17.9 mmol/L 03/02/19 12:32 VBG Total CO2 28.9 mmol/L (22-28) H 03/02/19 12:32 VBG O2 Sat (Calc) 22.8 % (40-65) L 03/02/19 12:32 VBG Base Excess -6.2 mmol/L (0.0-2.0) L 03/02/19 12:32 VBG Potassium 5.8 mmol/L (3.6-5.2) H 03/02/19 12:32 A-a O2 Difference 121.0 mm/Hg 03/04/19 05:15 Respiratory Index 1.0 03/04/19 05:15 Hgb O2 Saturation 97.2 % (95.0-98.0) 03/04/19 05:15 Sodium 140.0 mmol/l (132-148) 03/03/19 05:29 Chloride 109.0 mmol/L (98-107) H 03/03/19 05:29 Glucose 133 mg/dl (65-105) H 03/03/19 05:29 Lactate 1.6 mmol/L (0.7-2.1) 03/03/19 05:29 Vent Mode Prvc 03/04/19 05:15 Mechanical Rate 16 03/04/19 05:15 FiO2 40.0 % 03/04/19 05:15 Tidal Volume 500 03/04/19 05:15 PEEP 5 03/04/19 05:15 Crit Value Called To Diony jenkins 03/02/19 13:43 Crit Value Called By Blaze cagle,rotary driller 03/02/19 13:43 Crit Value Read Back Y 03/02/19 13:43 Blood Gas Notified Time 1350 03/02/19 13:43 Sodium 137 mmol/L (132-148) 03/08/19 06:31 Potassium 3.7 mmol/L (3.6-5.2) 03/08/19 06:31 Chloride 102 mmol/L (98-107) 03/08/19 06:31 Carbon Dioxide 29 mmol/L (22-30) 03/08/19 06:31 Anion Gap 10 (10-20) 03/08/19 06:31 BUN 11 mg/dL (7-17) 03/08/19 06:31 Creatinine 0.6 mg/dL (0.7-1.2) L 03/08/19 06:31 Est GFR ( Amer) > 60 03/08/19 06:31 Est GFR (Non-Af Amer) > 60 03/08/19 06:31 Random Glucose 101 mg/dL (65-105) 03/08/19 06:31 Lactic Acid 2.1 mmol/L (0.7-2.1) 03/02/19 19:50 Calcium 8.9 mg/dl (8.6-10.4) 03/08/19 06:31 Phosphorus 4.5 mg/dL (2.5-4.5) 03/08/19 06:31 Magnesium 1.9 mg/dL (1.6-2.3) 03/08/19 06:31 Total Bilirubin 0.6 mg/dL (0.2-1.3) 03/08/19 06:31 AST 33 U/L (14-36) 03/08/19 06:31 ALT 34 U/L (9-52) 03/08/19 06:31 Alkaline Phosphatase 63 U/L (38-126) 03/08/19 06:31 Total Creatine Kinase 146 U/L (30-135) H 03/02/19 19:50 CK-MB (Mass) 5.51 ng/mL (0.0-3.38) H 03/02/19 12:33 Troponin I 0.1120 ng/mL (0.00-0.120) 03/03/19 09:10 Total Protein 6.8 g/dL (6.3-8.3) 03/08/19 06:31 Albumin 3.8 g/dL (3.5-5.0) 03/08/19 06:31 Globulin 3.0 gm/dL (2.2-3.9) 03/08/19 06:31 Albumin/Globulin Ratio 1.3 (1.0-2.1) 03/08/19 06:31 Ethanolamine None detected 03/02/19 12:33 Arterial Blood Potassium 3.3 mmol/L (3.6-5.2) L 03/03/19 05:29 Venous Blood Potassium 5.8 mmol/L (3.6-5.2) H 03/02/19 12:32 Urine Color Yellow (YELLOW) 03/02/19 15:25 Urine Clarity Clear (Clear) 03/02/19 15:25 Urine pH 6.0 (5.0-8.0) 03/02/19 15:25 Ur Specific [place] 1.025 (1.003-1.030) 03/02/19 15:25 Urine Protein Negative mg/dL (NEGATIVE) 03/02/19 15:25 Urine Glucose (UA) Negative mg/dL (Normal) 03/02/19 15:25 Urine Ketones Negative mg/dL (NEGATIVE) 03/02/19 15:25 Urine Blood Trace (NEGATIVE) 03/02/19 15:25 Urine Nitrate Negative (NEGATIVE) 03/02/19 15:25 Urine Bilirubin Negative (NEGATIVE) 03/02/19 15:25 Urine Urobilinogen 0.2 mg/dL (0.2-1.0) 03/02/19 15:25 Ur Leukocyte Esterase Negative Emilia/uL (Negative) 03/02/19 15:25 Urine WBC (Auto) < 1 /hpf (0-5) 03/02/19 15:25 Urine RBC (Auto) 3 /hpf (0-3) 03/02/19 15:25 Ur Squamous Epith Cells 1 /hpf (0-5) 03/02/19 15:25 Urine Bacteria Rare (<OCC) 03/02/19 15:25 Hyaline Casts 6-10 /lpf (0-2) H 03/02/19 11:06 Urine HCG, Qual Negative (NEGATIVE) 03/02/19 11:06 Stool Occult Blood Negative (NEGATIVE) 03/04/19 20:17 Salicylates < 1.0 mg/dL 1 03/02/19 11:33 Opiates (GC/MS) negative 03/02/19 12:33 Urine Opiates Screen Negative (NEGATIVE) 03/02/19 11:06 Methadone (GC/MS) negative 03/02/19 12:33 Urine Methadone Screen Negative (NEGATIVE) 03/02/19 11:06 Propoxyphenes negative 03/02/19 12:33 Acetaminophen < 10.0 ug/mL (10.0-30.0) L 03/02/19 11:33 Barbiturates negative 03/02/19 12:33 Ur Barbiturates Screen Negative (NEGATIVE) 03/02/19 11:06 Phencyclidine (PCP) negative 03/02/19 12:33 Ur Phencyclidine Scrn Negative (NEGATIVE) 03/02/19 11:06 Amphetamines negative 03/02/19 12:33 Ur Amphetamines Screen Negative (NEGATIVE) 03/02/19 11:06 Benzodiazepines negative 03/02/19 12:33 U Benzodiazepines Scrn Negative (NEGATIVE) 03/02/19 11:06 Cocaine & Metabolite negative 03/02/19 12:33 U Oth Cocaine Metabols Negative (NEGATIVE) 03/02/19 11:06 U Cannabinoids Screen Negative (NEGATIVE) 03/02/19 11:06 Marijuana negative 03/02/19 12:33 Drugs of Abuse Comment See note 03/02/19 12:33 Alcohol, Quantitative < 10 mg/dl (0-10) 03/02/19 11:33 Methyl Alcohol Level None detected 03/02/19 12:33 Isopropanol None detected 03/02/19 12:33 Acetone Level None detected 03/02/19 12:33 Blood Type A NEGATIVE 03/04/19 08:11 Antibody Screen Negative 03/04/19 08:11 - Hospital Course Hospital Course: Patient is a 63 year old female with pmhx of chronic back pain 2/2 scoliosis, depression and LE DVT admitted s/p intubation in field after being found by homemaker at home, unresponsive and foaming at the mouth. EMS called; pt initially administered 2 doses of narcan, then intubated for airway protection. Family reports pt has history of chronic back pain following spinal surgery, and per ED notes, hx of severe scoliosis. Patient brought in intubated, hypotensive in the 60s systolic. Patient initially required pressures. Patient vitals stabilized, extubated successfully. Patient noted to have facial droop on right side. Muscle strength remained intact and no other deficient observed. Neuro consulted, EEG negative. Brain MRI unobtainable due to lumbar metal implant. Repeat CT chronic microvascular changes noted. CT chest negative for PE. 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 Home medication eliquis continued. Echo 65-705 EF, diastolic dysfunction. Above is only a summary of patient stay during hospitalization. See EMR for full details. Below are instructions provided to patient upon discharge. Patient is stable for discharge per Dr. Thompson. Patient should continue taking her home medication eliquis 5 mg twice daily. Patient should start risperidone 1 mg at night time 1 tablet Patient should start aspirin 81 mg daily - 1 tablet Patient should start metoprolol 12.5 mg twice daily Patient should stop taking other medications. Patient should follow up with her primary doctor in 1 week. Patient should follow up with neurology in 2 weeks. Patient should follow up with cardiology in 2 weeks. Patient will have home PT setup. If symptoms worsen please return to the nearest medical facility. Discharge Exam - Head Exam Head Exam: NORMAL INSPECTION - Eye Exam Eye Exam: Normal appearance - ENT Exam ENT Exam: Mucous Membranes Moist - Respiratory Exam Respiratory Exam: Clear to PA & Lateral, NORMAL BREATHING PATTERN, UNREMARKABLE. absent: Rales, Rhonchi, Wheezes - Cardiovascular Exam Cardiovascular Exam: +S1, +S2 - GI/Abdominal Exam GI & Abdominal Exam: Normal Bowel Sounds, Soft. absent: Distended, Firm, Guarding - Extremities Exam Additional comments: denies calf tenderness/ palpation - Neurological Exam Neurological exam: Alert, Oriented x3 Additional comments: persistent R facial droop motor strength normal in all extremities normal heal to rizo normal finger to nose - Psychiatric Exam Psychiatric exam: Normal Affect, Normal Mood - Skin Skin Exam: Dry, Intact, Normal Color, Warm Discharge Plan - Discharge Medications Prescriptions: Aspirin [Ecotrin] 81 mg PO DAILY #30 tabec Metoprolol Tartrate [Lopressor] 12.5 mg PO BID #60 tab Risperidone 1 mg PO HS #30 tablet - Follow Up Plan Condition: GOOD Disposition: HOME/ ROUTINE Instructions: Altered Mental Status (DC), Respiratory Distress Syndrome, Adult (DC), Risperidone Additional Instructions: Patient is stable for discharge per Dr. Thompson. Patient should continue taking her home medication eliquis 5 mg twice daily. Patient should start risperidone 1 mg at night time 1 tablet Patient should start aspirin 81 mg daily - 1 tablet Patient should start metoprolol 12.5 mg twice daily Patient should stop taking other medications. Patient should follow up with her primary doctor in 1 week. Patient should follow up with neurology in 2 weeks. Patient should follow up with cardiology in 2 weeks. Patient will have home PT setup. If symptoms worsen please return to the nearest medical facility. <Silvia Thompson - Last Filed: 03/08/19 18:45> Provider - Provider Date of Admission: 03/02/19 12:15 Attending physician: Silvia Thompson MD Consults: 03/02/19 12:45 Critical Care Consult Routine Comment: Consulting Provider: Tirso Reis Consulting Physician: Tirso Reis Reason for Consult: intubated/hypotension 03/03/19 07:56 Cardiology Consult Routine Comment: Consulting Provider: Nicholas Juarez Consulting Physician: Nicholas Juarez Reason for Consult: Respiratory failure, borderline elevated troponins, sepsis 03/05/19 08:00 Neurology Consult Routine Comment: r/o seizure Consulting Provider: Gregoria Rhoades Consulting Physician: Gregoria Rhoades Reason for Consult: r/o seizure Hospital Course - Lab Results Lab Results: Micro Results 03/02/19 12:00 Blood Blood Culture - Final NO GROWTH AFTER 5 DAYS 03/02/19 12:00 Blood Gram Stain - Final TEST NOT PERFORMED 03/02/19 11:30 Blood Blood Culture - Final NO GROWTH AFTER 5 DAYS 03/02/19 11:30 Blood Gram Stain - Final TEST NOT PERFORMED 03/02/19 19:50 Trachasp Gram Stain - Final 03/02/19 19:50 Trachasp Sputum Culture - Final NORMAL ORAL BROOK 03/02/19 15:25 Naris MRSA Culture (Admit) - Final MRSA NOT DETECTED 03/02/19 15:25 Urine,Catheterized Urine Culture - Final No Growth (<1,000 CFU/ML) Most Recent Lab Values WBC 8.7 K/uL (4.8-10.8) 03/08/19 06:31 RBC 3.74 Mil/uL (3.80-5.20) L 03/08/19 06:31 Hgb 10.2 g/dL (11.0-16.0) L 03/08/19 06:31 Hct 31.0 % (34.0-47.0) L 03/08/19 06:31 MCV 82.8 fL (81.0-99.0) 03/08/19 06:31 MCH 27.2 pg (27.0-31.0) 03/08/19 06:31 MCHC 32.8 g/dL (33.0-37.0) L 03/08/19 06:31 RDW 15.8 % (11.5-14.5) H 03/08/19 06:31 Plt Count 312 K/uL (130-400) 03/08/19 06:31 MPV 9.6 fL (7.2-11.7) 03/08/19 06:31 Neut % (Auto) 67.0 % (50.0-75.0) 03/08/19 06:31 Lymph % (Auto) 19.2 % (20.0-40.0) L 03/08/19 06:31 [place] % (Auto) 7.8 % (0.0-10.0) 03/08/19 06:31 Eos % (Auto) 5.6 % (0.0-4.0) H 03/08/19 06:31 Baso % (Auto) 0.4 % (0.0-2.0) 03/08/19 06:31 Neut # (Auto) 5.9 K/uL (1.8-7.0) 03/08/19 06:31 Lymph # (Auto) 1.7 K/uL (1.0-4.3) 03/08/19 06:31 [place] # (Auto) 0.7 K/uL (0.0-0.8) 03/08/19 06:31 Eos # (Auto) 0.5 K/uL (0.0-0.7) 03/08/19 06:31 Baso # (Auto) 0.0 K/uL (0.0-0.2) 03/08/19 06:31 Neutrophils % (Manual) 86 % (50-75) H 03/04/19 06:31 Lymphocytes % (Manual) 7 % (20-40) L 03/04/19 06:31 Monocytes % (Manual) 7 % (0-10) 03/04/19 06:31 Nucleated RBC % 1 % (0-0) H 03/02/19 11:33 Platelet Estimate Normal (NORMAL) 03/04/19 06:31 Large Platelets Present 03/04/19 06:31 Polychromasia Slight 03/04/19 06:31 Hypochromasia (manual) Moderate 03/04/19 06:31 Poikilocytosis (manual Slight 03/03/19 05:25 Anisocytosis (manual) Slight 03/04/19 06:31 Target Cells Slight 03/03/19 05:25 APTT 27 SECONDS (21-34) 03/02/19 12:33 Puncture Site R brac 03/04/19 05:15 pCO2 31 mm/Hg (35-45) L 03/04/19 05:15 pO2 125 mm/Hg (80-100) H 03/04/19 05:15 HCO3 26.3 mmol/L (21-28) 03/04/19 05:15 ABG pH 7.51 (7.35-7.45) H 03/04/19 05:15 ABG Total CO2 25.7 mmol/L (22-28) 03/04/19 05:15 ABG O2 Saturation 98.3 % (95-98) H 03/04/19 05:15 ABG Base Excess 1.7 mmol/L (-2.0-3.0) 03/04/19 05:15 ABG Hemoglobin 7.2 g/dL (11.7-17.4) L 03/04/19 05:15 ABG Carboxyhemoglobin 0.9 % (0.5-1.5) 03/04/19 05:15 POC ABG HHb (Measured) 1.7 % (0.0-5.0) 03/04/19 05:15 ABG Methemoglobin 0.2 % (0.0-3.0) 03/04/19 05:15 Keo Test Na 03/04/19 05:15 ABG Potassium 3.3 mmol/L (3.6-5.2) L 03/03/19 05:29 VBG pH 7.07 (7.32-7.43) L* 03/02/19 12:32 VBG pCO2 90 mmHg (40-60) H* 03/02/19 12:32 VBG HCO3 17.9 mmol/L 03/02/19 12:32 VBG Total CO2 28.9 mmol/L (22-28) H 03/02/19 12:32 VBG O2 Sat (Calc) 22.8 % (40-65) L 03/02/19 12:32 VBG Base Excess -6.2 mmol/L (0.0-2.0) L 03/02/19 12:32 VBG Potassium 5.8 mmol/L (3.6-5.2) H 03/02/19 12:32 A-a O2 Difference 121.0 mm/Hg 03/04/19 05:15 Respiratory Index 1.0 03/04/19 05:15 Hgb O2 Saturation 97.2 % (95.0-98.0) 03/04/19 05:15 Sodium 140.0 mmol/l (132-148) 03/03/19 05:29 Chloride 109.0 mmol/L (98-107) H 03/03/19 05:29 Glucose 133 mg/dl (65-105) H 03/03/19 05:29 Lactate 1.6 mmol/L (0.7-2.1) 03/03/19 05:29 Vent Mode Prvc 03/04/19 05:15 Mechanical Rate 16 03/04/19 05:15 FiO2 40.0 % 03/04/19 05:15 Tidal Volume 500 03/04/19 05:15 PEEP 5 03/04/19 05:15 Crit Value Called To Diony jenkins 03/02/19 13:43 Crit Value Called By Blaze cagle,rotary driller 03/02/19 13:43 Crit Value Read Back Y 03/02/19 13:43 Blood Gas Notified Time 1350 03/02/19 13:43 Sodium 137 mmol/L (132-148) 03/08/19 06:31 Potassium 3.7 mmol/L (3.6-5.2) 03/08/19 06:31 Chloride 102 mmol/L (98-107) 03/08/19 06:31 Carbon Dioxide 29 mmol/L (22-30) 03/08/19 06:31 Anion Gap 10 (10-20) 03/08/19 06:31 BUN 11 mg/dL (7-17) 03/08/19 06:31 Creatinine 0.6 mg/dL (0.7-1.2) L 03/08/19 06:31 Est GFR ( Amer) > 60 03/08/19 06:31 Est GFR (Non-Af Amer) > 60 03/08/19 06:31 Random Glucose 101 mg/dL (65-105) 03/08/19 06:31 Lactic Acid 2.1 mmol/L (0.7-2.1) 03/02/19 19:50 Calcium 8.9 mg/dl (8.6-10.4) 03/08/19 06:31 Phosphorus 4.5 mg/dL (2.5-4.5) 03/08/19 06:31 Magnesium 1.9 mg/dL (1.6-2.3) 03/08/19 06:31 Total Bilirubin 0.6 mg/dL (0.2-1.3) 03/08/19 06:31 AST 33 U/L (14-36) 03/08/19 06:31 ALT 34 U/L (9-52) 03/08/19 06:31 Alkaline Phosphatase 63 U/L (38-126) 03/08/19 06:31 Total Creatine Kinase 146 U/L (30-135) H 03/02/19 19:50 CK-MB (Mass) 5.51 ng/mL (0.0-3.38) H 03/02/19 12:33 Troponin I 0.1120 ng/mL (0.00-0.120) 03/03/19 09:10 Total Protein 6.8 g/dL (6.3-8.3) 03/08/19 06:31 Albumin 3.8 g/dL (3.5-5.0) 03/08/19 06:31 Globulin 3.0 gm/dL (2.2-3.9) 03/08/19 06:31 Albumin/Globulin Ratio 1.3 (1.0-2.1) 03/08/19 06:31 Ethanolamine None detected 03/02/19 12:33 Arterial Blood Potassium 3.3 mmol/L (3.6-5.2) L 03/03/19 05:29 Venous Blood Potassium 5.8 mmol/L (3.6-5.2) H 03/02/19 12:32 Urine Color Yellow (YELLOW) 03/02/19 15:25 Urine Clarity Clear (Clear) 03/02/19 15:25 Urine pH 6.0 (5.0-8.0) 03/02/19 15:25 Ur Specific [place] 1.025 (1.003-1.030) 03/02/19 15:25 Urine Protein Negative mg/dL (NEGATIVE) 03/02/19 15:25 Urine Glucose (UA) Negative mg/dL (Normal) 03/02/19 15:25 Urine Ketones Negative mg/dL (NEGATIVE) 03/02/19 15:25 Urine Blood Trace (NEGATIVE) 03/02/19 15:25 Urine Nitrate Negative (NEGATIVE) 03/02/19 15:25 Urine Bilirubin Negative (NEGATIVE) 03/02/19 15:25 Urine Urobilinogen 0.2 mg/dL (0.2-1.0) 03/02/19 15:25 Ur Leukocyte Esterase Negative Emilia/uL (Negative) 03/02/19 15:25 Urine WBC (Auto) < 1 /hpf (0-5) 03/02/19 15:25 Urine RBC (Auto) 3 /hpf (0-3) 03/02/19 15:25 Ur Squamous Epith Cells 1 /hpf (0-5) 03/02/19 15:25 Urine Bacteria Rare (<OCC) 03/02/19 15:25 Hyaline Casts 6-10 /lpf (0-2) H 03/02/19 11:06 Urine HCG, Qual Negative (NEGATIVE) 03/02/19 11:06 Stool Occult Blood Negative (NEGATIVE) 03/04/19 20:17 Salicylates < 1.0 mg/dL 1 03/02/19 11:33 Opiates (GC/MS) negative 03/02/19 12:33 Urine Opiates Screen Negative (NEGATIVE) 03/02/19 11:06 Methadone (GC/MS) negative 03/02/19 12:33 Urine Methadone Screen Negative (NEGATIVE) 03/02/19 11:06 Propoxyphenes negative 03/02/19 12:33 Acetaminophen < 10.0 ug/mL (10.0-30.0) L 03/02/19 11:33 Barbiturates negative 03/02/19 12:33 Ur Barbiturates Screen Negative (NEGATIVE) 03/02/19 11:06 Phencyclidine (PCP) negative 03/02/19 12:33 Ur Phencyclidine Scrn Negative (NEGATIVE) 03/02/19 11:06 Amphetamines negative 03/02/19 12:33 Ur Amphetamines Screen Negative (NEGATIVE) 03/02/19 11:06 Benzodiazepines negative 03/02/19 12:33 U Benzodiazepines Scrn Negative (NEGATIVE) 03/02/19 11:06 Cocaine & Metabolite negative 03/02/19 12:33 U Oth Cocaine Metabols Negative (NEGATIVE) 03/02/19 11:06 U Cannabinoids Screen Negative (NEGATIVE) 03/02/19 11:06 Marijuana negative 03/02/19 12:33 Drugs of Abuse Comment See note 03/02/19 12:33 Alcohol, Quantitative < 10 mg/dl (0-10) 03/02/19 11:33 Methyl Alcohol Level None detected 03/02/19 12:33 Isopropanol None detected 03/02/19 12:33 Acetone Level None detected 03/02/19 12:33 Blood Type A NEGATIVE 03/04/19 08:11 Antibody Screen Negative 03/04/19 08:11 Attending/Attestation - Attestation I have personally seen and examined this patient.: Yes I have fully participated in the care of the patient.: Yes I have reviewed all pertinent clinical information, including history, physical exam and plan: Yes
[2019-03-08] MEDS ORDERED: Pneumococcal 23-Valent Vaccine IM ONE (13:29)
--- NOTE | 2019-03-08 21:58 | PN ---
DATE: 03/08/2019 SUBJECTIVE: The patient denies any chest pain. PHYSICAL EXAMINATION: VITAL SIGNS: Blood pressure 111/73, heart rate 78, temperature 97.9, respirations 20. HEENT: Normocephalic. CHEST: Clear. HEART: S1 and S2, regular. EXTREMITIES: Trace leg edema. LABORATORY DATA: Today's hemoglobin and hematocrit are 10.2 and 31. White count and platelet count are within normal limits. Today's SMA-7 is within normal limits except for creatinine of 0.6. Official report of EEG is a normal, awake, and sleep EEG. Chest CT angio performed yesterday, no large central or segmental pulmonary embolus evident. Small bilateral pleural effusion. Moderate to large hiatus hernia. Cholecystectomy. Repeat head CT scan performed yesterday, no interval hemorrhage or mass effect. Cerebral atrophy and possible trace deep white matter chronic microvascular ischemic changes. ASSESSMENT: 1. Borderline troponin elevation, rule out underlying coronary artery disease. 2. Status post respiratory failure. 3. Chronic left common femoral deep venous thrombosis. The patient has inferior vena cava filter placement. RECOMMENDATIONS: Case was discussed with medical team. Continue Eliquis, aspirin, and low-dose beta broderick therapy. Follow up in the clinic. Further cardiac workup when the patient is more clinically stable. Nicholas Juarez MD
--- NOTE | 2019-03-10 11:16 | PQF ---
PROVIDER RESPONSE TEXT: Patient was treated for sepsis secondary to pneumonia. No septicemia REVIEWER QUERY TEXT: Rule Out Sepsis Clarification Rule out Sepsis is documented in the Medical Record. Please clarify whether: -- Patient has sepsis - Please document confirmed, suspected or probable causative organism - Please document confirmed, suspected or probable localized infection - Please clarify if sepsis is related to a device - Please clarify if sepsis was present on admission -- Sepsis was ruled out (include corresponding diagnosis for patient?s clinical picture and treatment ) -- Patient had sepsis which is resolved -- Other, please specify The patient's Clinical Indicators include: SEPSIS DOCUMENTATION: HYPOTENSION =R/O SEPSIS SEPSIS FROM PNA==SUSPECTED. LEUKOCYTOSYS 16.6 LACTATE 4.1 PLEASE CLARIFY AND DOCUMENT IF SEPSIS WAS R/I==OR== R/O Query created by: Hoda Peter on 03/10/2019 7:52 AM Electronically signed by: Silvia Thompson MD 03/10/2019 11:13 AM
== END 2019-03-08 14:17 | disposition home or self-care (01) | DRG 208 ==
LOC: C.ER 10:32 → C.9E 12:15 → C.9I 12:32 → C.3T 03-06 15:19
PROVIDERS: ADMIT Internal Medicine; ATTEND Internal Medicine
PROC: 5A1945Z Respiratory Ventilation, 24-96 Consecutive Hours (ICD-10-PCS; principal; 2019-03-02)
DX: J96.02 Acute respiratory failure with hypercapnia (principal); A41.9 Sepsis, unspecified organism; J18.9 Pneumonia, unspecified organism; I82.512 Chronic embolism and thrombosis of left femoral vein; M41.9 Scoliosis, unspecified; R29.810 Facial weakness; G89.29 Other chronic pain; E87.6 Hypokalemia; D64.9 Anemia, unspecified; I11.9 Hypertensive heart disease without heart failure; I51.7 Cardiomegaly; Z79.01 Long term (current) use of anticoagulants; Z95.828 Presence of other vascular implants and grafts